=== PATIENT | female | born 1970 | race Two or more races ===

== ENCOUNTER 2019-12-20 13:19 | Outpatient (REF) | payer MEDICAID, SELFPAY | END 2019-12-20 13:20 | disposition home or self-care (01) | LOC: HO.LAB 13:19 | PROVIDERS: Visit Provider Internal Medicine | DX: Z20.828 Contact with and (suspected) exposure to other viral communicable diseases (principal) | CPT/HCPCS: C9803; U0003 ==

== ENCOUNTER → 2020-01-05 10:05 | Outpatient (BNVA) | payer MEDICAID, SELFPAY | PROVIDERS: PCP Pediatrics; Visit Provider Physician Assistant | DX: M25.511 Pain in right shoulder (principal); M54.2 Cervicalgia | CPT/HCPCS: 99212 ==

== ENCOUNTER → 2020-02-28 09:43 | Outpatient (BNVA) | payer MEDICAID, SELFPAY | PROVIDERS: PCP Pediatrics; Visit Provider Nurse Practitioner Family | DX: M75.81 Other shoulder lesions, right shoulder (principal); M47.22 Other spondylosis with radiculopathy, cervical region; M79.89 Other specified soft tissue disorders | CPT/HCPCS: 99202 ==

== ENCOUNTER 2020-03-07 19:42 | Outpatient (REF) | payer MEDICAID, SELFPAY ==
--- NOTE | 2020-03-07 19:47 | MR_ITS ---
MR CERVICAL SPINE WITHOUT CONTRAST CLINICAL INFORMATION: Spondylosis with radiculopathy. COMPARISON: Cervical spine CT dated 07/07/2018. TECHNIQUE: MRI of the cervical spine was obtained using routine sequences without contrast. FINDINGS: Straightening of the cervical lordosis. Vertebral body heights are maintained. There is moderate disc volume loss C5-C6, C6-C7, and C7-T1. There is no bone marrow edema. There are no acute fractures. The craniocervical junction is unremarkable. Cervical arterial flow voids are maintained. There are no significant soft tissue findings. There is no cord signal abnormality. Partially imaged intracranial compartment is unremarkable. C2-C3: Shallow central disc protrusion without central canal stenosis. Bilateral facet arthropathy. No foraminal stenosis. C3-C4: Disc osteophyte and ligamentum flavum thickening result in moderate to severe central canal stenosis and mass effect on the cord. Uncovertebral joint hypertrophy and hypertrophic facet arthropathy result in severe left and moderate to severe right foraminal stenosis. C4-C5: Disc osteophyte and ligamentum flavum thickening result in moderate central canal stenosis and flattening of the cord. Uncovertebral joint hypertrophy and hypertrophic facet arthropathy result in severe left and moderate right foraminal stenosis. C5-C6: Disc osteophyte and ligamentum flavum thickening result in severe central canal stenosis and mass effect on the cord. Uncovertebral joint hypertrophy and hypertrophic facet arthropathy result in severe bilateral foraminal stenosis. C6-C7: Disc osteophyte eccentric to the left side mildly narrows the central canal. Uncovertebral joint hypertrophy and hypertrophic facet arthropathy result in moderate to severe bilateral foraminal stenosis. C7-T1: Disc osteophyte mildly narrows the central canal. Uncovertebral joint hypertrophy and hypertrophic facet arthropathy result in severe bilateral foraminal stenosis. MR/MR cervical spine wo con IMPRESSION: - Advanced multilevel cervical spondylosis. Multifactorial degenerative changes result in severe central canal stenosis at C5-C6, moderate to severe central canal stenosis at C3-C4, and moderate central canal stenosis at C4-C5 with mass effect on the cervical spinal cord at these levels, greatest at C5-C6. No cord signal changes accounting for artifact. - Advanced spondylitic changes also result in varying degrees of moderate to severe foraminal stenosis throughout the cervical spine bilaterally as discussed in detail above.
== END 2020-03-07 19:43 | disposition home or self-care (01) ==
LOC: HO.MRI 19:42
PROVIDERS: Visit Provider Anesthesiology
DX: M47.22 Other spondylosis with radiculopathy, cervical region (principal)
CPT/HCPCS: 72141

== ENCOUNTER 2020-03-12 13:12 | Outpatient (REF) | payer MEDICAID, SELFPAY ==
--- NOTE | 2020-03-12 13:14 | US_ITS ---
EXAMINATION: ULTRASOUND EXTREMITY NONVASCULAR CLINICAL INFORMATION: 1 inch nonmobile mass located in the right antecubital fossa. Rule out neurofibroma. Patient indicates second palpable area over the right lateral elbow toward the olecranon. COMPARISON: None TECHNIQUE: Grayscale and color imaging of the soft tissues of the elbow using a linear transducer FINDINGS: No mass is seen. No fluid collection is seen. US/US extremity nonvascular IMPRESSION: No abnormality seen by ultrasound.
== END 2020-03-12 13:13 | disposition home or self-care (01) ==
LOC: HO.US 13:12
PROVIDERS: PCP Internal Medicine; Visit Provider Anesthesiology
DX: M79.89 Other specified soft tissue disorders (principal); L02.413 Cutaneous abscess of right upper limb
CPT/HCPCS: 76882

== ENCOUNTER → 2020-03-13 14:35 | Outpatient (BNVA) | payer MEDICAID, SELFPAY | PROVIDERS: PCP Internal Medicine; Referring Provider Internal Medicine; Visit Provider Nurse Practitioner | DX: Z76.89 Persons encountering health services in other specified circumstances (principal) ==

== ENCOUNTER → 2020-03-20 09:01 | Outpatient (BNVA) | payer MEDICAID, SELFPAY | PROVIDERS: PCP Internal Medicine; Visit Provider Anesthesiology ==

== ENCOUNTER → 2020-05-14 15:28 | Outpatient (BNVA) | payer MEDICAID, SELFPAY | PROVIDERS: PCP Internal Medicine; Referring Provider Internal Medicine; Visit Provider Nurse Practitioner ==

== ENCOUNTER 2020-06-17 14:02 | Outpatient (REF) | payer MEDICAID, SELFPAY ==
--- NOTE | ~2020-06-17 | US_ITS ---
EXAMINATION: US RETROPERITONEAL LIMITED (RENAL ONLY) CLINICAL INFORMATION: Cyst of kidney, acquired. COMPARISON: Renals only ultrasounds dated 05/25/2019 and 12/06/2018. CT abdomen and pelvis without contrast dated 02/21/2017. KUBs dated 05/22/2015 and 05/15/2015. TECHNIQUE: Real-time imaging of the kidneys. FINDINGS: RIGHT KIDNEY: 12.7 x 4.3 x 5.2 cm (SAG x AP x TRV). The kidney is normal in size, contour, and echogenicity. Renal cortical thickness is normal. There is a 3 mm stone in the midpole. No focal parenchymal lesions or hydronephrosis. LEFT KIDNEY: 11.2 x 4.5 x 4.7 cm (SAG x AP x TRV). The kidney is normal in size, contour, and echogenicity. Renal cortical thickness is normal. There is a 4 mm stone in the upper to midpole. No focal parenchymal lesions or hydronephrosis. US/US renal BI IMPRESSION: Small bilateral renal stones. No renal cyst seen..
== END 2020-06-17 14:03 | disposition home or self-care (01) ==
LOC: HO.US 14:02
PROVIDERS: PCP Internal Medicine; Visit Provider Urology
DX: N28.1 Cyst of kidney, acquired (principal)
CPT/HCPCS: 76775

== ENCOUNTER 2020-09-26 08:26 | Outpatient (REF) | payer MEDICAID, SELFPAY ==
--- NOTE | ~2020-09-26 | XR_ITS ---
EXAMINATION: XR KNEE STANDING, BILATERAL XR KNEE, RIGHT CLINICAL INFORMATION: Pain. COMPARISON: Most recent right knee MRI dated 12/27/2017. Bilateral knee radiographs dated 11/15/2017. TECHNIQUE: AP standing view of the right and left knee. Lateral and sunrise views of the right knee. FINDINGS: Oarmqwkj-pc-pblxli medial compartment joint space narrowing with subchondral sclerosis and marginal osteophytes. Tiny patellofemoral marginal osteophytes. No fracture or dislocation. Medial compartment chondrocalcinosis. Hgojh-yu-hywutfmt joint effusion. XR/XR knee RT 2V IMPRESSION: Pcdsahnj-ki-nalcwi medial compartment osteoarthritis and minimal patellofemoral compartment osteophyte arthritis, progressed when compared to the prior examinations.
--- NOTE | ~2020-09-26 | XR_ITS ---
EXAMINATION: XR KNEE STANDING, BILATERAL XR KNEE, RIGHT CLINICAL INFORMATION: Pain. COMPARISON: Most recent right knee MRI dated 12/27/2017. Bilateral knee radiographs dated 11/15/2017. TECHNIQUE: AP standing view of the right and left knee. Lateral and sunrise views of the right knee. FINDINGS: Kdvilurm-ua-toncaa medial compartment joint space narrowing with subchondral sclerosis and marginal osteophytes. Tiny patellofemoral marginal osteophytes. No fracture or dislocation. Medial compartment chondrocalcinosis. Nzwnt-dx-xufqghgd joint effusion. XR/XR knee standing BI IMPRESSION: Dvphjxyy-yh-hdomqh medial compartment osteoarthritis and minimal patellofemoral compartment osteophyte arthritis, progressed when compared to the prior examinations.
== END 2020-09-26 08:27 | disposition home or self-care (01) ==
LOC: HO.HOSX 08:26
PROVIDERS: Visit Provider Physician Assistant
DX: M17.11 Unilateral primary osteoarthritis, right knee (principal)
CPT/HCPCS: 20610; 73560; 73565; 99212; J1040

== ENCOUNTER 2020-11-20 11:40 | Outpatient (REF) | payer MEDICAID, SELFPAY | END 2020-11-20 11:41 | disposition home or self-care (01) | LOC: HO.LAB 11:40 | PROVIDERS: PCP Internal Medicine; Visit Provider Internal Medicine | DX: Z20.822 Contact with and (suspected) exposure to COVID-19 (principal) | CPT/HCPCS: C9803; U0003; U0005 ==

== ENCOUNTER → 2020-12-25 11:31 | Outpatient (BNVA) | payer MEDICAID, SELFPAY | PROVIDERS: PCP Internal Medicine | DX: N20.0 Calculus of kidney (principal) | CPT/HCPCS: 99212 ==

== ENCOUNTER → 2020-12-26 16:07 | Outpatient (BNVA) | payer MEDICAID, SELFPAY | PROVIDERS: PCP Internal Medicine; Visit Provider Nurse Practitioner | DX: K21.9 Gastro-esophageal reflux disease without esophagitis (principal) ==

== ENCOUNTER → 2021-03-17 14:40 | Outpatient (BNVA) | payer MEDICAID, SELFPAY | PROVIDERS: PCP Internal Medicine | DX: N20.0 Calculus of kidney (principal) | CPT/HCPCS: 51798; 99212 ==

== ENCOUNTER 2021-04-07 13:49 | Outpatient (REF) | payer MEDICAID, SELFPAY ==
--- NOTE | ~2021-04-07 | US_ITS ---
EXAMINATION: US RETROPERITONEAL LIMITED (RENAL ONLY) CLINICAL INFORMATION: Calculus of kidney. COMPARISON: Bilateral renal ultrasound dated 06/17/2020. Renals only ultrasound dated 05/25/2019. CT abdomen and pelvis without contrast dated 02/21/2017. KUBs dated 05/22/2015 and 05/15/2015. TECHNIQUE: Real-time imaging of the kidneys. FINDINGS: RIGHT KIDNEY: 12.2 x 4.4 x 5.2 cm (SAG x AP x TRV). The kidney is normal in size, contour, and echogenicity. Renal cortical thickness is normal. No calculi or focal parenchymal lesions. No hydronephrosis. LEFT KIDNEY: 12.1 x 5.1 x 5.5 cm (SAG x AP x TRV). The kidney is normal in size, contour, and echogenicity. Renal cortical thickness is normal. No focal parenchymal lesions or hydronephrosis. There is an echogenic stone in upper pole measuring 0.4 x 0.3 x 0.4 cm. US/US renal BI IMPRESSION: Echogenic upper pole left renal stone measuring 0.4 cm. No additional echogenic stones seen. There is no hydronephrosis. The right kidney is unremarkable.
--- NOTE | ~2021-04-07 | XR_ITS ---
EXAMINATION: XR RIBS, RIGHT CLINICAL INFORMATION: Chondrocostal junction syndrome. COMPARISON: None TECHNIQUE: 3 views of the right ribs were obtained. Chest one view FINDINGS: Chest: Lungs are clear. No consolidation, pneumothorax, or pleural effusion. The cardiomediastinal silhouette and pulmonary vasculature are normal. Osseous structures are unremarkable. Right RIBS: Multiple views of right ribs reveal no visible fracture or bony abnormality. The soft tissues are normal. XR/XR ribs RT min 3V w CXR1V IMPRESSION: Unremarkable chest exam. Unremarkable right rib exam. No acute fracture seen.
== END 2021-04-07 13:50 | disposition home or self-care (01) ==
LOC: HO.US 13:49
PROVIDERS: PCP Internal Medicine; Visit Provider Urology
DX: N20.0 Calculus of kidney (principal); M94.0 Chondrocostal junction syndrome [Tietze]
CPT/HCPCS: 71101; 76775

== ENCOUNTER 2021-04-18 11:34 | Emergency (ER) | payer MEDICAID, SELFPAY ==
--- NOTE | ~2021-04-18 | CT_ITS ---
EXAMINATION: CT ABDOMEN AND PELVIS WITHOUT CONTRAST CLINICAL INFORMATION: Left flank and left lower quadrant abdominal pain. Hematuria. COMPARISON: CT of February 21, 2017 and ultrasound study of April 07, 2021. TECHNIQUE: Multidetector volumetric imaging was performed from the superior aspect of the liver through the pubic symphysis. Sagittal and coronal reformatted images were obtained on the technologist's workstation. This CT examination was performed using dose optimization techniques as appropriate, variously including the following: *Automated exposure control *Adjustment of mA and/or kV according to patient size (this includes techniques or standardized protocols for targeted exams where dose is matched to indication/reason for exam; i.e. extremities or head) *Use of iterative reconstruction technique DLP: 578 mGy-cm FINDINGS: LUNG BASES: The visualized lung bases are unremarkable. No pleural or pericardial effusion. LIVER, GALLBLADDER, AND BILIARY TREE: There is mild hepatomegaly present with vertical span of approximately 20 cm. There is a region of focal fatty infiltration along the falciform ligament within segment 3. No suspicious focal mass or intrahepatic bile duct dilatation is identified. The gallbladder is contracted with no obvious radiopaque gallstones, gallbladder wall thickening, or pericholecystic inflammatory changes. PANCREAS: Unremarkable. SPLEEN: Unremarkable. ADRENAL GLANDS: Unremarkable. KIDNEYS AND URETERS: Right kidney: Within the interpolar region there is a 3 mm nonobstructing calculus and a 1 mm nonobstructing calculus. No hydronephrosis or hydroureter is appreciated. Left kidney: Within the upper pole of the left kidney there are 2, 2 mm nonobstructing calculi. No hydronephrosis is appreciated. There is however noted to be prominence of the left ureter down to the ureterovesical junction. No definite calculus is seen in this location however there is a 3 mm calculus lying about the posterior aspect of the urinary bladder on the left side which may represent a recently passed calculus. BLADDER: There is a 3 mm calcification about the posterior left lateral aspect of the urinary bladder which may either lie within or adjacent to the wall or within the urinary bladder itself. GASTROINTESTINAL TRACT: No dilated loops of large or small bowel are evident. There is diverticulosis of the sigmoid colon without evidence of acute diverticulitis. ABDOMINAL WALL: No significant hernia is appreciated. LYMPH NODES: None appreciated VASCULAR: Unremarkable. PELVIC VISCERA: Unremarkable. OSSEOUS STRUCTURES: Multilevel degenerative disc disease is seen throughout the lumbar spine and involving the mid to lower thoracic spine. Disc spacer is seen at the L5-S1 level. CT/CT abdomen pelvis wo con IMPRESSION: Prominence of the left ureter down to the ureterovesical junction without calcification seen within the ureter. There is a 3 mm calcification about the left side of the urinary bladder likely representing a recently passed calculus. Bilateral nephrolithiasis. Mild hepatomegaly. Fleischner guidelines were followed.
[2021-04-18 11:40] VITALS: BP 151/70; PULSE 70; RESP 18; TEMP 36.6; O2SAT 97; BMI 27.8
[2021-04-18 12:10] LABS: MANUAL DIFF FLAG NO
[2021-04-18 12:15] LABS: Basophils Percent Auto 0.4 % (0-2); Eosinophils Absolute Auto 0.1 X10*3/uL (0.0-0.4); Hematocrit 41.1 % (37.0-47.0); Hemoglobin 13.6 g/dl (12.0-16.0); Imm Gran Abs Auto 0.03 X10*3/uL (0.00-0.03); Imm Gran Pct Auto 0.3 % (0.0-0.4); Lymphocytes Percent Auto 37.9 % (20-40); Mean Corpuscular HGB Conc 33.1 g/dl (31.0-35.0); Mean Corpuscular Hemoglobin 29.2 pg (27.0-33.0); Mean Corpuscular Volume 88.4 fL (80.0-98.0); Mean Platelet Volume 12.1 fL (9.4-12.3); Monocytes Absolute Auto 0.9 X10*3/uL (0.1-1.2); Neutrophils Absolute Auto 5.6 x10*3/uL (2.0-8.3); Neutrophils Percent Auto 52.4 % (45-73); Platelet Count 298 X10*3/uL (160-400); Red Blood Count 4.65 X10*6/uL (4.20-5.50); Red Cell Distribution Width 13.8 % (11.0-16.0); White Blood Count 10.7 X10*3/uL (4.8-10.8)
[2021-04-18 12:16] LABS: Appearance Urine CLOUDY; Color Urine YELLOW; Glucose Urine UA NEG (NEG); Leukocyte Esterase Urine NEG (NEG); Nitrite Urine NEG (NEG); Specific Gravity - Urine >= 1.030 (1.005-1.025); UACC Culture Trigger NO; Urine Blood 3+ (NEG); Urine Ketones NEG (NEG); Urine Protein 1+ MG/DL (NEG-TRACE)
[2021-04-18 12:24] LABS: Anion Gap 12 (12-20); Blood Urea Nitrogen 22 mg/dL (9-16); Calcium 10.4 mg/dL (8.4-10.2); Carbon Dioxide 28 mmol/L (22-29); Chloride 105 mmol/L (96-108); Creatinine Clr Calc Pharmacy 76.9; Estimated Glomerular Filt Rate > 60; Glucose Random 97 mg/dL (60-115); Potassium 3.6 mmol/L (3.3-5.1); Sodium 141 mmol/L (135-145)
[2021-04-18 12:31] LABS: RBC Urine TNTC /HPF (0); Squamous Epithelial Cell Urine TRACE /LPF; WBC Urine 0 /HPF (0-4)
[2021-04-18 13:44] VITALS: BP 117/67; PULSE 55; RESP 17; TEMP 36.4; O2SAT 95
[2021-04-18] MEDS: 0.9 % Sodium Chloride 1,000 ML 999 ML IV ×2 (13:50→15:42)
--- NOTE | 2021-04-18 14:04 | ED_ITS ---
HPI - Female Genitourinary General Chief complaint: Urogenital-Female Stated complaint: Kidney stone Time Seen by Provider: 04/18/21 13:41 Source: patient Mode of arrival: ambulatory History of Present Illness HPI Narrative: 51-year-old female with a past medical history fibromyalgia, renal calculi, presenting to the ED complaining of left flank pain radiating to LLQ since last night with associated hematuria, dysuria, and urinary hesitancy Admits to similar symptoms in the past. Recently had outpatient ultrasound which patient is unaware of results. Denies fever, chills, nausea, vomiting, diarrhea/constipation MD elicited complaint: dysuria Related Data Home Medications Medication Instructions Recorded Confirmed cholecalciferol (vitamin D3) 25 25 mcg PO DAILY 02/28/20 02/28/20 mcg (1,000 unit) capsule fexofenadine 180 mg tablet 180 mg PO DAILY 02/28/20 02/28/20 (Melody Allergy) morphine 15 mg tablet,extended 15 mg PO ONCE tab 02/28/20 02/28/20 release oxycodone-acetaminophen 5 mg-325 1 tab PO Q8H PRN 02/28/20 02/28/20 mg tablet pregabalin 300 mg capsule (Lyrica) 300 mg PO BID 02/28/20 02/28/20 cyclobenzaprine 10 mg tablet 10 mg PO BEDTIME 12/25/20 varenicline 0.5 mg tablet 0.5 mg PO BID 12/25/20 Previous Rx's Medication Instructions Recorded diazepam 5 mg tablet (Valium) 5 mg PO ONCE PRN 1 Days #1 tab 03/04/20 docusate sodium 100 mg capsule 100 mg PO DAILY #30 cap 12/26/20 omeprazole 20 mg capsule,delayed 20 mg PO DAILY 30 Days #30 cap 12/26/20 release sennosides 8.6 mg capsule (senna) 17.2 mg PO BEDTIME PRN 30 Days #60 12/26/20 cap pyridoxine (vitamin B6) 100 mg 100 mg PO DAILY 90 Days #90 tab 04/01/21 tablet fesoterodine 8 mg tablet,extended 8 mg PO DAILY #90 tab 04/16/21 release 24 hr (Toviaz) ketorolac 10 mg tablet 10 mg PO TID PRN 5 Days #15 tab 04/18/21 tamsulosin 0.4 mg capsule (Flomax) 0.4 mg PO DAILY #14 cap 04/18/21 Allergies Allergy/AdvReac Type Severity Reaction Status Date / Time duloxetine [From CYMBALTA] Allergy Severe SEVERE Verified 04/18/21 11:39 DIARRHEA/DEHYDRATION tramadol [TRAMADOL] Allergy Severe SEVERE Verified 04/18/21 11:39 DIARRHEA/DEHYDRATION pollen Allergy Unknown unknown Uncoded 12/26/20 16:09 Review of Systems Review of Systems: Constitutional: No Fever, No Chills, No Fatigue, No Malaise ENT/Mouth: No Ear Pain, No Nasal Congestion, No sore throat, No Rhinorrhea, No Swallowing Difficulty Eyes: No Eye Pain, No Swelling, No Redness Cardiovascular: No Chest Pain, No SOB, No Palpitations Respiratory: No Cough, No Sputum, No Dyspnea Gastrointestinal: No Nausea, No Vomiting, No Diarrhea, No Constipation, + Abdominal pain Genitourinary: No irregular bleeding, + Dysuria, + Urinary Frequency, + Hematuria, No Urinary Incontinence, No Urgency, + Flank Pain, No Urinary Flow Changes, + Hesitancy Musculoskeletal: No joint pain, No Myalgias, No Joint Swelling Skin: No Skin Lesions, No rash Neuro: No Weakness, No Numbness, No Dizziness, No Headache Yes all other systems are reviewed and are negative [facility] Past Medical History Attestation statement: The following information was validated with the patient. Medical History Epigastric pain Fibromyalgia H. pylori infection Renal calculi Spinal stenosis, cervical region Urinary incontinence Surgical History History of esophagogastroduodenoscopy (EGD) History of right knee surgery History of spinal fusion Hx of colonoscopy Family History Family History Mother Diabetes Family history of cancer Sister HTN (hypertension) Diabetes Maternal Grandmother Heart problem Father Medical history unknown Social History Social History Household Members: None Cigarettes Per Day: 4 Substance Use Type: Marijuana Advance Directives: No Advance Directives Information Provided: No Current occupational status: unemployed Current occupation: rt handed Physical Exam Vital Signs: Vital Signs: Last Vital Signs Temp 97.9 F 04/18/21 16:36 Pulse 50 04/18/21 16:36 Resp 18 04/18/21 16:36 BP 122/68 04/18/21 16:36 Pulse Ox 100 04/18/21 16:36 BMI result Body Mass Index 27.8 Const: Other: in pain General: cooperative and healthy appearing Orientation/consciousness: patient oriented x3 Limitations: no limitations HENMT: Head: Yes normal to inspection and Yes atraumatic Ears: hearing grossly normal bilaterally General nose exam: Normal external nose present Face and sinus: Yes normal facial exam Eyes: General: appearance normal, both eyes and all related structures EOM: EOMs intact bilaterally Neck: Neck: Yes normal visual inspection Resp: Effort & Inspection: normal respiratory effort and no respiratory distress Cardio: Rate: regular rate Heart sounds: S1 normal heart sound present and S2 normal heart sound present GI: Inspection: Yes normal to inspection Palpation (GI): Soft to palpation, Tenderness to palpation present (GI) in the LLQ and suprapubicly, no guarding and not rigid : General: Yes CVA tenderness on the left Back/Spine/Pelvis: Back: CVA tenderness Skin: Rashes: no rashes Wounds: no wounds Neuro: General: patient oriented x3 and tone normal Gait exam (Neuro): Normal gait present Extrem: General: Yes normal to inspection Course Course Course Narrative: -1420--BUN elevated to 22. Labs otherwise unremarkable. UA with RBC/not infected. -CT abdomen pelvis wo con IMPRESSION: Prominence of the left ureter down to the ureterovesical junction without calcification seen within the ureter. There is a 3 mm calcification about the left side of the urinary bladder likely representing a recently passed calculus. ? Bilateral nephrolithiasis. ? Mild hepatomegaly. ? >> results discussed with patient including worrisome signs and symptoms and strict return precautions & needed close follow-up with Urology. Patient rep orts symptomatic improvement since ED arrival MDM - Female Genitourinary MDM Narrative Medical decision making narrative: 51-year-old female with a past medical history fibromyalgia, renal calculi, pr esenting to the ED complaining of left flank pain radiating to LLQ since last night with associated hematuria, dysuria, and urinary hesitancy. On exam vital signs stable, appears in pain, abdomen soft with LLQ/suprapubic tenderness and CVA tenderness. No rebound or guarding. Concern for renal stone/colic vs UTI/pyelo. Unlikely appendicitis/diverticulitis. Plan: Labs, UA, CT, IVF, symptomatic treatment, re-evaluate Of note on 03/07/2021 patient had a bilateral renal ultrasound which showed upper pole left renal stone measuring 0.4 cm. No hydro. Right kidney was unremarkable. Differential Diagnosis Differential diagnosis: Likely urinary tract infection Medical Records Attestation: I reviewed the patient's medical records. Lab Data Attestation: I reviewed the patient's lab results. Result diagrams: 04/18/21 12:04/18/21 12:01 Labs: Lab Results 04/18/21 04/18/21 04/18/21 Range/Units 12: 12: 12:05 WBC 10.7 (4.8-10.8) X10*3/uL RBC 4.65 (4.20-5.50) X10*6/uL Hgb 13.6 (12.0-16.0) g/dl Hct 41.1 (37.0-47.0) % MCV 88.4 (80.0-98.0) fL MCH 29.2 (27.0-33.0) pg MCHC 33.1 (31.0-35.0) g/dl RDW 13.8 (11.0-16.0) % Plt Count 298 (160-400) X10*3/uL MPV 12.1 (9.4-12.3) fL Immature Gran % (Auto) 0.3 (0.0-0.4) % Neut % (Auto) 52.4 (45-73) % Lymph % (Auto) 37.9 (20-40) % [place] % (Auto) 8.0 (2-11) % Eos % (Auto) 1.0 (0-4) % Baso % (Auto) 0.4 (0-2) % Lymph # (Auto) 4.0 (1.2-4.9) X10*3/uL Knott # (Auto) 0.9 (0.1-1.2) X10*3/uL Eos # (Auto) 0.1 (0.0-0.4) X10*3/uL Baso # (Auto) 0.0 (0.0-0.2) X10*3/uL Abs Immat Gran (auto) 0.03 (0.00-0.03) X10*3/uL Absolute Neuts (auto) 5.6 (2.0-8.3) x10*3/uL Absolute Nucleated RBC 0.000 (0.0-0.012) X10*3/uL Nucleated RBC % (auto) 0.0 (0.0-0.2) /100WBC Sodium 141 (135-145) mmol/L Potassium 3.6 (3.3-5.1) mmol/L Chloride 105 (96-108) mmol/L Carbon Dioxide 28 (22-29) mmol/L Anion Gap 12 (12-20) BUN 22 H (9-16) mg/dL Creatinine 0.80 (0.5-1.4) mg/dL Estim Creat Clear Calc 76.9 Estimated GFR > 60 Random Glucose 97 (60-115) mg/dL Calcium 10.4 H (8.4-10.2) mg/dL Total Bilirubin 0.5 (0.0-1.0) mg/dL Direct Bilirubin 0.2 (0.0-0.5) mg/dL AST 16 (5-31) U/L ALT 15 (0-31) U/L Alkaline Phosphatase 79 (39-117) U/L Total Protein 7.8 (6.5-8.0) g/dL Albumin 4.5 (3.5-5.0) g/dL Urine Color YELLOW Urine Appearance CLOUDY Urine pH 6.0 (5.0-8.0) Ur Specific [place] >= 1.030 H (1.005-1.025) Urine Protein 1+ H (NEG-TRACE) MG/DL Urine Glucose (UA) NEG (NEG) MG/DL Urine Ketones NEG (NEG) MG/DL Urine Blood 3+ H (NEG) Urine Nitrite NEG (NEG) Ur Leukocyte Esterase NEG (NEG) Urine RBC TNTC H (0) /HPF Urine WBC 0 (0-4) /HPF Ur Squamous Epith Cells TRACE /LPF Urine Bacteria NONE /LPF Discharge Plan Discharge Clinical Impression: Bilateral renal stones Patient Disposition: Home, Self-Care Instructions: Renal Colic (ED) Additional Instructions: Your blood work is reassuring, you do need to increase her fluid intake. Her urine has blood in at likely from her kidney stone. Your CT scan shows evidence that he likely passed a stone on her left side. You do have bilateral stones in both of her kidneys. You need to follow-up with Urology. If symptoms persist or worsen, pain becomes unbearable, you are unable to eat or drink, persistent nausea vomiting or fever please return to the ED Toradol it is an anti-inflammatory pain medication, take with food. Flomax will help dilate her ureter. Prescriptions: New ketorolac 10 mg tablet 10 mg PO TID PRN (Reason: pain) 5 Days Qty: 15 0RF tamsulosin [Flomax] 0.4 mg capsule 0.4 mg PO DAILY Qty: 14 0RF No Action diazepam [Valium] 5 mg tablet 5 mg PO ONCE PRN (Reason: anxiety) 1 Days Qty: 1 0RF Rx Instructions: take 1 hour before the MRI procedure. pyridoxine (vitamin B6) 100 mg tablet 100 mg PO DAILY 90 Days Qty: 90 3RF Toviaz 8 mg tablet extended release 24 hr 8 mg PO DAILY Qty: 90 3RF pregabalin [Lyrica] 300 mg capsule 300 mg PO BID 0RF cholecalciferol (vitamin D3) 25 mcg (1,000 unit) capsule 25 mcg PO DAILY 0RF fexofenadine [Melody Allergy] 180 mg tablet 180 mg PO DAILY 0RF morphine 15 mg tablet extended release 15 mg PO ONCE 0RF oxycodone-acetaminophen 5-325 mg tablet 1 tab PO Q8H PRN0RF omeprazole 20 mg capsule,delayed release(DR/EC) 20 mg PO DAILY 30 Days Qty: 30 6RF docusate sodium 100 mg capsule 100 mg PO DAILY Qty: 30 6RF senna 8.6 mg capsule 17.2 mg PO BEDTIME PRN (Reason: constipation) 30 Days Qty: 60 3RF cyclobenzaprine 10 mg tablet 10 mg PO BEDTIME 0RF varenicline 0.5 mg tablet 0.5 mg PO BID 0RF Rx Instructions: administer on days 4, 5, and 6 of therapy Referrals: Raul Frank MD [Physician] - 1 week
[2021-04-18 14:08] LABS: Alanine Aminotransferase 15 U/L (0-31); Albumin Level 4.5 g/dL (3.5-5.0); Alkaline Phosphatase 79 U/L (39-117); Aspartate Amino Transferase 16 U/L (5-31); Bilirubin Direct 0.2 mg/dL (0.0-0.5); Bilirubin Total 0.5 mg/dL (0.0-1.0); Total Protein 7.8 g/dL (6.5-8.0)
[2021-04-18] MEDS: Ketorolac Tromethamine 15 MG/ML VIAL IVPUSH (14:30)
[2021-04-18] MEDS: Tamsulosin HCL 0.4 MG CAPSULE PO (14:30)
--- NOTE | 2021-04-18 14:38 | PC.NURSE ---
this health underwriter assumed care of this pt at 1420. pt medicated and fluid started as documented. vss.
[2021-04-18 16:36] VITALS: BP 122/68; PULSE 50; RESP 18; TEMP 36.6; O2SAT 100
== END 2021-04-18 17:17 | disposition home or self-care (01) ==
PROVIDERS: Physician Assistant; Emergency Provider Emergency Medicine; PCP Internal Medicine
DX: N20.0 Calculus of kidney (principal); R10.32 Left lower quadrant pain; F17.210 Nicotine dependence, cigarettes, uncomplicated; Z71.6 Tobacco abuse counseling; Z79.899 Other long term (current) drug therapy
CPT/HCPCS: 36415; 74176; 80048; 80076; 81001; 85025; 96361; 96374; 99284; 99285; J1885

== ENCOUNTER → 2021-04-28 13:48 | Outpatient (BNVA) | payer MEDICAID, SELFPAY | PROVIDERS: PCP Internal Medicine | DX: N20.0 Calculus of kidney (principal) | CPT/HCPCS: 99212 ==

== ENCOUNTER → 2021-07-21 16:10 | Outpatient (BNVA) | payer MEDICAID, SELFPAY | PROVIDERS: PCP Internal Medicine; Referring Provider Internal Medicine; Visit Provider Nurse Practitioner | DX: K21.9 Gastro-esophageal reflux disease without esophagitis (principal); K59.00 Constipation, unspecified; Z79.899 Other long term (current) drug therapy | CPT/HCPCS: 99212 ==

== ENCOUNTER 2021-09-16 13:20 | Outpatient (REF) | payer MEDICAID, SELFPAY ==
--- NOTE | ~2021-09-16 | US_ITS ---
EXAMINATION: US RETROPERITONEAL LIMITED (RENAL ONLY) CLINICAL INFORMATION: Calculus of kidney. COMPARISON: CT abdomen and pelvis without contrast 04/18/2021. US retroperitoneal limited (renal only) 04/07/2021 and 06/17/2020. XR abdomen KUB 05/22/2015 and 05/15/2015. TECHNIQUE: Real-time imaging of the kidneys. FINDINGS: RIGHT KIDNEY: 12.1 x 4.2 x 4.7 cm (SAG x AP x TRV). The kidney is normal in size, contour, and echogenicity. Renal cortical thickness is normal. No calculi or focal parenchymal lesions. No hydronephrosis. LEFT KIDNEY: 11.6 x 4.8 x 4.6 cm (SAG x AP x TRV). The kidney is normal in size, contour, and echogenicity. Renal cortical thickness is normal. No calculi or focal parenchymal lesions. No hydronephrosis. US/US renal BI IMPRESSION: Normal renal ultrasound study. The previously noted bilateral renal calculi from CT scan are not appreciated on the ultrasound study. The mild left upper collecting system prominence has resolved..
== END 2021-09-16 13:21 | disposition home or self-care (01) ==
LOC: HO.US 13:20
PROVIDERS: Visit Provider Urology
DX: N20.0 Calculus of kidney (principal)
CPT/HCPCS: 76775

== ENCOUNTER 2021-10-16 09:57 | Outpatient (REF) | payer MEDICAID, SELFPAY ==
--- NOTE | ~2021-10-16 | XR_ITS ---
EXAMINATION: XR BILATERAL KNEE AP STANDING. LATERAL AND SUNRISE VIEWS OF THE RIGHT KNEE. CLINICAL INFORMATION: Pain in right knee COMPARISON: 09/26/2020 TECHNIQUE: AP bilateral standing view of both knees, lateral view of the right knee, and sunrise view of the right knee were obtained. FINDINGS: Right knee: Mild medial compartment joint space narrowing. No fracture, dislocation, or joint effusion. There is superior and lateral patellar osteophytosis. Left knee: There may be minimal medial compartment joint space narrowing. No fracture or dislocation seen. XR/XR knee RT 2V IMPRESSION: Medial and patellofemoral compartment osteoarthritis of the right knee. The findings in the patellofemoral compartment have progressed since 09/26/2020.
--- NOTE | ~2021-10-16 | XR_ITS ---
EXAMINATION: XR BILATERAL KNEE AP STANDING. LATERAL AND SUNRISE VIEWS OF THE RIGHT KNEE. CLINICAL INFORMATION: Pain in right knee COMPARISON: 09/26/2020 TECHNIQUE: AP bilateral standing view of both knees, lateral view of the right knee, and sunrise view of the right knee were obtained. FINDINGS: Right knee: Mild medial compartment joint space narrowing. No fracture, dislocation, or joint effusion. There is superior and lateral patellar osteophytosis. Left knee: There may be minimal medial compartment joint space narrowing. No fracture or dislocation seen. XR/XR knee standing BI IMPRESSION: Medial and patellofemoral compartment osteoarthritis of the right knee. The findings in the patellofemoral compartment have progressed since 09/26/2020.
== END 2021-10-16 09:58 | disposition home or self-care (01) ==
LOC: HO.HOSX 09:57
PROVIDERS: Visit Provider Physician Assistant
DX: M72.2 Plantar fascial fibromatosis (principal)
CPT/HCPCS: 73560; 73565; 99212

== ENCOUNTER 2022-05-08 14:23 | Emergency (ER) | payer MEDICAID, SELFPAY ==
--- NOTE | ~2022-05-08 | XR_ITS ---
EXAMINATION: XR SHOULDER, RIGHT CLINICAL INFORMATION: Right shoulder pain status post surgery. COMPARISON: 08/03/2019 right shoulder radiographs. TECHNIQUE: AP external rotation, Grashey, scapular Y, and axillary views of the right shoulder. FINDINGS: Mild calcification is seen in the region of the rotator cuff insertion on the greater tuberosity. Mild degenerative joint changes are seen. The visualized right ribs are intact. The soft tissues are unremarkable. XR/XR shoulder RT min 2V IMPRESSION: 1. Mild rotator cuff calcific tendinosis. 2. Mild degenerative joint changes. No acute abnormality.
--- NOTE | 2022-05-08 14:37 | ED.UPPEXIN ---
HPI - Extremity Injury (Upper) General Chief Complaint: Extremity Injury, Upper <RACHEL Fleming - Last Filed: 05/08/22 14:45> Stated Complaint: right arm pain <RACHEL Fleming - Last Filed: 05/08/22 14:45> Time Seen by Provider: 05/08/22 16:09 <RACHEL Fleming - Last Filed: 05/08/22 14:45> Source: patient <Estefania Chavarria MD - Last Filed: 05/08/22 17:18> Mode of arrival: ambulatory <Estefania Chavarria MD - Last Filed: 05/08/22 17:18> Limitations: no limitations <Estefania Chavarria MD - Last Filed: 05/08/22 17:18> History of Present Illness HPI narrative: Patient comes emergency room complaining of right shoulder pain. Patient had an ORIF on 03/24/2022 at [facility]. Patient states that she is currently on physical therapy and states that the pain keeps increasing. Patient states that she takes Percocet without relief. Patient denies any fever chills, no erythema in the area or swelling. Patient denies any new injuries <Estefania Chavarria MD - Last Filed: 05/08/22 17:18> Related Data Home Medications: Home Medications Medication Instructions Recorded Confirmed cholecalciferol (vitamin D3) 25 25 mcg PO DAILY 02/28/20 10/14/21 mcg (1,000 unit) capsule fexofenadine 180 mg tablet 180 mg PO DAILY 02/28/20 10/14/21 (Melody Allergy) oxycodone-acetaminophen 5 mg-325 1 tab PO Q8H PRN 02/28/20 10/14/21 mg tablet pregabalin 300 mg capsule (Lyrica) 300 mg PO BID 02/28/20 10/14/21 cyclobenzaprine 10 mg tablet 10 mg PO BEDTIME 12/25/20 10/14/21 varenicline 0.5 mg tablet 0.5 mg PO BID 12/25/20 10/14/21 lancets 33 gauge (TRUEplus Lancets) #100 ea 04/28/21 10/14/21 lidocaine 5 % topical patch 0 patch topical 04/28/21 10/14/21 (Lidoderm) loratadine 10 mg tablet 10 mg PO DAILY 04/28/21 10/14/21 morphine 15 mg tablet,extended 15 mg PO Q12H 07/21/21 10/14/21 release naloxone 4 mg/actuation nasal 0 spray intranasal 07/21/21 10/14/21 spray (Narcan) Previous Rx's Medication Instructions Recorded diazepam 5 mg tablet (Valium) 5 mg PO ONCE PRN anxiety 1 day #1 03/04/20 tab sennosides 8.6 mg capsule (senna) 17.2 mg PO BEDTIME PRN 12/26/20 constipation 30 days #60 caps fesoterodine 8 mg tablet,extended 8 mg PO DAILY #90 tabs 04/16/21 release 24 hr (Toviaz) ketorolac 10 mg tablet 10 mg PO TID PRN pain 5 days #15 04/18/21 tabs tamsulosin 0.4 mg capsule (Flomax) 0.4 mg PO DAILY #14 caps 04/18/21 docusate sodium 100 mg capsule 100 mg PO DAILY 30 days #30 caps 09/24/21 pyridoxine (vitamin B6) 100 mg 100 mg PO DAILY 90 days #90 tabs 10/14/21 tablet omeprazole 20 mg capsule,delayed 20 mg PO DAILY #30 caps 04/29/22 release ketorolac 10 mg tablet 10 mg PO BID PRN pain 5 days #8 05/08/22 tabs <RACHEL Fleming - Last Filed: 05/08/22 14:45> Allergies/Adverse Reactions: Allergies Allergy/AdvReac Type Severity Reaction Status Date / Time duloxetine [From CYMBALTA] Allergy Severe SEVERE Verified 10/16/21 11:25 DIARRHEA/DEHYDRATION tramadol [TRAMADOL] Allergy Severe SEVERE Verified 10/16/21 11:25 DIARRHEA/DEHYDRATION pollen Allergy Unknown unknown Uncoded 07/21/21 16:21 <RACHEL Fleming - Last Filed: 05/08/22 14:45> Review of Systems Review of Systems: Constitutional : No Weight loss, No Fever, No Chills, No Night Sweats, No Fatigue, No Malaise ENT/Mouth : No Hearing loss, No Ear Pain, No Nasal Congestion, No Sinus Pain, No Hoarseness, No sore throat, No Rhinorrhea, No Swallowing Difficulty Eyes: No Eye Pain, No Swelling, No Redness, No Foreign Body, No Discharge, No Vision Changes Cardiovascular : No Chest Pain, No SOB, No Dyspnea on Exertion, No Orthopnea, No Edema, No Palpitations Respiratory : No Cough, No Sputum, No Wheezing, No Smoke Exposure, No Dyspnea Gastrointestinal : No Nausea, No Vomiting, No Diarrhea, No Constipation, No abdominal Pain, No Hematochezia, No Melena Genitourinary : no irregular bleeding, No Dysuria, No Urinary Frequency, No Hematuria, No Urinary Incontinence, No Urgency, No Flank Pain, No Urinary Flow Changes, No Hesitancy Musculoskeletal : Complaining of chronic right shoulder pain No Myalgias, No Joint Swelling Skin : No Skin Lesions, No rash Neuro : No Weakness, No Numbness, No Paresthesias, No Loss of Consciousness, No Dizziness, No Headache Psych : No Anxiety/Panic, No Depression, No SI/HI/AH/VH, No Social Issues, Heme/Lymph: No Bruising, No Bleeding,No Lymphadenopathy Endocrine : No Polyuria, No Polydipsia, No Temperature Intolerance <Estefania Chavarria MD - Last Filed: 05/08/22 17:18> [facility] Past Medical History Medical History: Medical History Epigastric pain Fibromyalgia H. pylori infection Renal calculi Spinal stenosis, cervical region Urinary incontinence <RACHEL Fleming - Last Filed: 05/08/22 14:45> Surgical History: Surgical History History of esophagogastroduodenoscopy (EGD) History of right knee surgery History of spinal fusion Hx of colonoscopy <RACHEL Fleming - Last Filed: 05/08/22 14:45> Family History Family History: Family History Mother Diabetes Family history of cancer Sister HTN (hypertension) Diabetes Maternal Grandmother Heart problem Father Medical history unknown <RACHEL Fleming - Last Filed: 05/08/22 14:45> Social History Social History: Social History Household Members: None Alcohol intake: current Alcohol intake frequency: does not drink Cigarettes Per Day: 6 Substance Use Type: Marijuana Advance Directives: No Advance Directives Information Provided: No Current occupational status: unemployed Current occupation: rt handed <RACHEL Fleming - Last Filed: 05/08/22 14:45> Physical Exam Vital Signs: Vital Signs: Last Vital Signs Temp 97.9 F 05/08/22 14:38 Pulse 88 05/08/22 14:38 Resp 22 H 05/08/22 14:38 BP 113/59 L 05/08/22 14:38 Pulse Ox 95 05/08/22 14:38 O2 Del Method Room Air 05/08/22 14:38 BMI result Body Mass Index 28.3 <RACHEL Fleming - Last Filed: 05/08/22 14:45> Vital Signs: Last Vital Signs Temp 97.9 F 05/08/22 14:38 Pulse 88 05/08/22 14:38 Resp 22 H 05/08/22 14:38 BP 113/59 L 05/08/22 14:38 Pulse Ox 95 05/08/22 14:38 O2 Del Method Room Air 05/08/22 14:38 BMI result Body Mass Index 28.3 <Estefania Chavarria MD - Last Filed: 05/08/22 17:18> Const: Other: Appearance: Alert. Oriented X3. No acute distress. Eyes: Pupils equal, round and reactive to light. ENT: Pharynx normal. Neck: Normal inspection. Neck supple. No lymph nodes noted. No crepitus CVS: Normal heart rate and rhythm. Pulses normal. Normal S1 and S2 Respiratory: No respiratory distress. Breath sounds normal. No Wheezing. No rales Abdomen: Soft and nontender. No rigidity. No distention. Skin: Skin warm and dry. Normal skin color. Normal skin turgor. Extremities: No lower extremity edema. No Lacerations. No Rash. Right arm in a sling. Right shoulder looks normal, no erythema, no swelling. Pain to palpation throughout the whole shoulder, normal pulses 1 bilaterally. No extremity discoloration Neuro: Oriented X 3. No motor deficit. No sensory deficit. Moving all extremities. No slurred speech. CN 2 through 12 grossly intact Psych: calm, cooperative, teary <Estefania Chavarria MD - Last Filed: 05/08/22 17:18> Course Course Course Narrative: RME-- 52 yo F w/PMHx R shoulder fx s/p ORIF 03/24/22 at [facility] c/o increasing R shoulder pain s/p PT this week. 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 Denies known injury, trauma or fall. Patient in sling, Diffuse R shoulder swelling noted with old surgical scars, no erythema/crepitus decreased range of motion secondary to pain, tearful during the eval. Neurovascular intact distally XRs ordered, patient will need pain control <RACHEL Fleming - Last Filed: 05/08/22 14:45> Medical Decision Making Medical Decision Making MDM Narrative: -I discussed the physical exam and x-ray findings with the patient, patient likely has tendinitis. -patient was given 1 dose of IM Toradol - <Estefania Chavarria MD - Last Filed: 05/08/22 17:18> Differential Diagnosis Differential Diagnoses: The differential diagnosis associated with the presentation includes (Rotator cough tear, tendonitis, fracture, dislocation) <Estefania Chavarria MD - Last Filed: 05/08/22 17:18> Independent Interpretation I performed an independent interpretation of an: Plain X-Ray (My interpretation of right shoulder: No) <Estefania Chavarria MD - Last Filed: 05/08/22 17:18> Discharge Plan Discharge Clinical Impression: Chronic pain in shoulder <RACHEL Fleming - Last Filed: 05/08/22 14:45> Patient Disposition: Home, Self-Care <RACHEL Fleming - Last Filed: 05/08/22 14:45> Instructions: Calcific Tendinitis (ED) <RACHEL Fleming - Last Filed: 05/08/22 14:45> Additional Instructions: Please follow-up with your primary care physician tomorrow. If you have any worsening or new symptoms, please return to the emergency room or call 911 <RACHEL Fleming - Last Filed: 05/08/22 14:45> Prescriptions: New ketorolac 10 mg tablet 10 mg PO BID PRN (Reason: pain) 5 Days Qty: 8 0RF Rx Instructions: Do not take any NSAIDs with this medication, and a Tylenol or Percocet if needed No Action diazepam [Valium] 5 mg tablet 5 mg PO ONCE PRN (Reason: anxiety) 1 Days Qty: 1 0RF Rx Instructions: take 1 hour before the MRI procedure. Toviaz 8 mg tablet extended release 24 hr 8 mg PO DAILY Qty: 90 3RF docusate sodium 100 mg capsule 100 mg PO DAILY 30 Days Qty: 30 6RF omeprazole 20 mg capsule,delayed release(DR/EC) 20 mg PO DAILY Qty: 30 6RF ketorolac 10 mg tablet 10 mg PO TID PRN (Reason: pain) 5 Days Qty: 15 0RF tamsulosin [Flomax] 0.4 mg capsule 0.4 mg PO DAILY Qty: 14 0RF pregabalin [Lyrica] 300 mg capsule 300 mg PO BID cholecalciferol (vitamin D3) 25 mcg (1,000 unit) capsule 25 mcg PO DAILY fexofenadine [Melody Allergy] 180 mg tablet 180 mg PO DAILY oxycodone-acetaminophen 5-325 mg tablet 1 tab PO Q8H PRN morphine 15 mg tablet extended release 15 mg PO Q12H senna 8.6 mg capsule 17.2 mg PO BEDTIME PRN (Reason: constipation) 30 Days Qty: 60 3RF naloxone [Narcan] 4 mg/actuation spray,non-aerosol 0 spray intranasal cyclobenzaprine 10 mg tablet 10 mg PO BEDTIME varenicline 0.5 mg tablet 0.5 mg PO BID Rx Instructions: administer on days 4, 5, and 6 of therapy (DME) lancets [TRUEplus Lancets] 33 gauge misc See Rx Instructions Not Applicable DAILY Qty: 100 Rx Instructions: As directed loratadine 10 mg tablet 10 mg PO DAILY lidocaine [Lidoderm] 5 % adhesive patch,medicated 0 patch topical pyridoxine (vitamin B6) 100 mg tablet 100 mg PO DAILY 90 Days Qty: 90 3RF <RACHEL Fleming - Last Filed: 05/08/22 14:45>
[2022-05-08 14:38] VITALS: BP 113/59; PULSE 88; RESP 22; TEMP 36.6; O2SAT 95; BMI 28.3
== END 2022-05-08 18:40 | disposition left against medical advice (07) ==
PROVIDERS: Emergency Provider Emergency Medicine; PCP Internal Medicine
DX: M25.511 Pain in right shoulder (principal); F17.210 Nicotine dependence, cigarettes, uncomplicated; Z71.6 Tobacco abuse counseling; Z79.899 Other long term (current) drug therapy
CPT/HCPCS: 73030; 99281; 99283

== ENCOUNTER 2022-07-29 14:21 | Outpatient (REF) | payer MEDICAID, SELFPAY ==
--- NOTE | ~2022-07-29 | US_ITS ---
EXAMINATION: US ABDOMEN COMPLETE CLINICAL INFORMATION: Right upper quadrant pain. COMPARISON: Ultrasound retroperitoneal limited (renal only) 09/16/2021. CT abdomen and pelvis without contrast 04/18/2021. Ultrasound retroperitoneal limited (renal only) 04/07/2021. X-ray abdomen KUB 05/22/2015 and 05/15/2015. TECHNIQUE: Real-time imaging of the abdominal viscera. FINDINGS: PANCREAS: Unremarkable but incompletely visualized due to bowel gas distribution. ABDOMINAL AORTA: The proximal, mid, and distal segments are normal in caliber. INFERIOR VENA CAVA: Visualized portions are normal. LIVER: The liver is normal in size. The liver contour is normal. There is increased echogenicity of the liver due to hepatic steatosis. No focal hepatic lesion. There is no intrahepatic biliary duct dilatation seen. GALLBLADDER: Normal. The gallbladder is physiologically distended without evidence of stones, sludge, polyps, wall thickening or pericholecystic fluid. COMMON BILE DUCT: Normal in caliber measuring 0.4 cm in diameter. RIGHT KIDNEY: Normal. No hydronephrosis. No renal calculi or focal parenchymal lesions. The kidney measures 11.9 cm in maximum dimension. LEFT KIDNEY: Normal. No hydronephrosis. No renal calculi or focal parenchymal lesions. The kidney measures 11.3 cm in maximum dimension. SPLEEN: Normal. The spleen measures 7.1 cm in maximum dimension. FREE FLUID: None. US/US abdomen complete IMPRESSION: Hepatic steatosis
== END 2022-07-29 14:22 | disposition home or self-care (01) ==
LOC: HO.US 14:21
PROVIDERS: PCP Internal Medicine; Visit Provider Urology
DX: R10.11 Right upper quadrant pain (principal)
CPT/HCPCS: 76700

== ENCOUNTER 2022-11-13 13:34 | Outpatient (REF) | payer MEDICAID, SELFPAY ==
--- NOTE | ~2022-11-13 | US_ITS ---
EXAMINATION: US RETROPERITONEAL LIMITED (RENAL ONLY) CLINICAL INFORMATION: Calculus of kidney. COMPARISON: Ultrasound abdomen complete 07/29/2022. CT abdomen and pelvis 04/18/2021. TECHNIQUE: Real-time imaging of the kidneys. FINDINGS: RIGHT KIDNEY: 11.3 x 3.5 x 5.0 cm (SAG x AP x TRV). The kidney is normal in size, contour, and echogenicity. Renal cortical thickness is normal. No calculi or focal parenchymal lesions. No hydronephrosis. LEFT KIDNEY: 11.0 x 5.4 x 4.1 cm (SAG x AP x TRV). The kidney is normal in size, contour, and echogenicity. Renal cortical thickness is normal. No focal parenchymal lesions or hydronephrosis. Possible 2 mm nonobstructing calculus in the mid kidney. US/US renal BI IMPRESSION: Possible 2 mm nonobstructing calculus in the mid left kidney. No hydronephrosis..
== END 2022-11-13 13:35 | disposition home or self-care (01) ==
LOC: HO.US 13:34
PROVIDERS: PCP Internal Medicine; Visit Provider Urology
DX: N20.0 Calculus of kidney (principal)
CPT/HCPCS: 76775

== ENCOUNTER 2022-11-17 13:19 | Outpatient (AMB) | payer MEDICAID, SELFPAY ==
--- NOTE | 2022-11-17 13:31 | MHC.OFFVIS ---
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 Left LE worse than Right LE x 1 yr. pt states she has had multiple surgeries in the past few years. She states more VV keep popping up all over her legs, Left more so. Pt states she gets itching and burning over VV along w/ swelling. Accompanied by: Self / Same As Patient Allergies duloxetine [From CYMBALTA] Allergy (Severe, Verified 11/17/22 13:37) SEVERE DIARRHEA/DEHYDRATION tramadol [TRAMADOL] Allergy (Severe, Verified 11/17/22 13:37) SEVERE DIARRHEA/DEHYDRATION pollen Allergy (Unknown, Uncoded 11/17/22 13:37) unknown HPI M[facility]IMEDIA SPECIALIST/HHC Referral for VV HPI Details Very complex 52-year-old female presents for evaluation regarding pain of the lower extremities. She has an extensive medical history inclusive fibromyalgia and several back surgeries. She has had cervical spine surgery from an anterior and posterior approach in addition to a lumbar spine surgery from an anterior and posterior approach as well. She in addition has had right shoulder surgery as well. Of note she had seen our pain management team back in 03/20/2020. At that time she was going to have neuro surgery evaluation. She now presents for vascular evaluation. She did have complaints about some superficial spider telangiectasias. In addition she has complaints of a pain behind the left knee. [facility] Medical History Renal calculi Urinary incontinence H. pylori infection Epigastric pain Spinal stenosis, cervical region Fibromyalgia Surgical History History of esophagogastroduodenoscopy (EGD) Hx of colonoscopy History of right knee surgery History of spinal fusion Family History Mother Diabetes Family history of cancer Sister HTN (hypertension) Diabetes Maternal Grandmother Heart problem Father Medical history unknown Social History (Updated 11/17/22 @ 13:40 by NANCY Shaw) Household Members: None Alcohol intake: current Alcohol intake frequency: does not drink Cigarettes Per Day: 10 Substance Use Type: Marijuana Current occupational status: unemployed Current occupation: rt handed Review of Systems Const All systems reviewed & are unremarkable except as noted in HPI and below Reports no additional complaints ENT Reports Normal hearing present Card Denies chest pain, Denies chest pain at rest, Denies chest pain with activity and Denies pedal edema Resp Denies cough GI Denies abdominal pain Musc Denies abnormal gait, Denies muscle cramps and Denies radiating pain into limb Skin/Breast Denies skin ulcer and Denies wounds Neuro Reports Normal hearing present and Denies abnormal gait Psych Reports no additional complaints Physical Exam Vital Signs: BMI result Body Mass Index 28.3 Const General: cooperative, healthy appearing and comfortable Orientation/consciousness: oriented to person, oriented to place and oriented to time HEENT Head: Yes normal to inspection Neck Neck: Yes normal visual inspection Carotids: no bruits Chest Chest palpation & inspection: normal inspection of the chest Resp Effort & Inspection: normal respiratory effort and able to speak in complete sentences Auscultation: clear to auscultation bilaterally, no crackles, no rales, no rhonchi and no wheezes Cardio Rate: regular rate Rhythm: regular rhythm Heart sounds: S1 normal heart sound present and S2 normal heart sound present Bruits: no carotid bruits Peripheral pulses: Peripheral pulses 2+ throughout GI Inspection: Yes normal to inspection Skin Wounds: no wounds Hair: normal Neuro General: oriented to person, oriented to place and oriented to time Cranial nerves: Yes CN's II-XII intact bilaterally and Yes Normal hearing present Cognition (Neuro): normal cognition Motor exam (neuro): 5/5 motor strength present throughout Extrem Other: venous exam: +1 edema with some spider telangiectasias General: No clubbing, No cyanosis and No edema Psych Appearance: grossly normal Mental Status: mental status grossly normal Speech and movement: Normal speech and movement present Assessment & Plan Assessment & Plan (1) Varicose veins of left lower extremity with inflammation: Code(s): I83.12 - Varicose veins of left lower extremity with inflammation Plan: In short patient has unclear etiology of lower extremity pain. I do believe this may be more spinal and musculoskeletal. In addition she has a history of fibromyalgia. It does not appear to be arterial in nature she does have palpable arterial pulses. I have taken the liberty of ordering venous insufficiency test to rule that out. She will follow up with us after testing. Thank you for allowing us to assist in her care. If there are any questions or concerns please do not hesitate to contact Orders: Orders US venous duplex LE BI 1 Week I83.12 - Varicose veins of left lower extremity with inflammation Coding Level of Care Code New Pt Level 4 (30276) Diagnoses Varicose veins of left lower extremity with inflammation I83.12
[2022-11-17 13:33] VITALS: BMI 28.3
== END 2022-11-17 14:36 | disposition home or self-care (01) ==
PROVIDERS: PCP Internal Medicine; Visit Provider Surgery Vascular Surgery
DX: I83.12 Varicose veins of left lower extremity with inflammation (principal)
CPT/HCPCS: 99203

== ENCOUNTER → 2022-11-17 13:19 | Outpatient (BNVA) | payer MEDICAID, SELFPAY | PROVIDERS: PCP Internal Medicine; Visit Provider Surgery Vascular Surgery ==

== ENCOUNTER 2023-01-15 12:57 | Outpatient (REF) | payer MEDICAID, SELFPAY ==
--- NOTE | ~2023-01-15 | US_ITS ---
EXAMINATION: US LOWER EXTREMITY VENOUS (REFLUX EXAM), BILATERAL CLINICAL INDICATION: Chronic venous insufficiency with left lower extremity varicose veins with inflammation COMPARISON: None. TECHNIQUE: Color flow triplex imaging and compression Doppler was performed to evaluate both the deep and the superficial systems bilaterally. To evaluate the superficial system, the examination was performed in the upright position. Color-flow Doppler ultrasound and compression ultrasound were utilized. In addition, maneuvers were utilized to demonstrate reflux. FINDINGS: 1. DEEP VENOUS ULTRASOUND OF THE RIGHT LOWER EXTREMITY: Common Femoral Vein: Compressible, normal respiratory variation and augmented flow. Femoral Vein: Compressible, normal color flow and augmentation. Popliteal Vein: Compressible, normal augmentation. Deep Reflux: There is no evidence of reflux in the deep system in either the common femoral vein or the popliteal vein. There is no evidence of a Dumont's cyst. 2. SUPERFICIAL ULTRASOUND WITH DOPPLER OF RIGHT LOWER EXTREMITY: GREAT SAPHENOUS VEIN: Saphenofemoral Junction: 0.6 cm; Reflux: 0 ms Proximal Thigh: 0.2 cm; Reflux: 0 ms Mid Thigh: 0.3 cm; Reflux: 0 ms Above Knee: 0.2 cm; Reflux: 0 ms At Knee: 0.4 cm; Reflux: 0 ms Below Knee: 0.3 cm; Reflux: 0 ms Mid Calf: 0.2 cm; Reflux: 0 ms Ankle: 0.3 cm; Reflux: 0 ms DUPLICATED MEDIAL GREAT SAPHENOUS VEIN: Diameter: None imaged Reflux: NA DUPLICATED LATERAL GREAT SAPHENOUS VEIN: Diameter: 0.3 cm Reflux: None SMALL SAPHENOUS VEIN: Proximal: 0.3 cm; Reflux: 0 ms Distal: 0.2 cm; Reflux: 0 ms VEIN OF GIACOMINI: Size: NA Reflux: NA PERFORATORS: Location: Distal calf Size: 0.3 cm Reflux: None VARICOSITIES: Location: Distal calf arising from the commercial leasing agent vein Size: 0.2 cm Reflux: None 3. DEEP VENOUS ULTRASOUND OF THE LEFT LOWER EXTREMITY: Common Femoral Vein: Compressible, normal respiratory variation and augmented flow. Femoral Vein: Compressible, normal color flow and augmentation. Popliteal Vein: Compressible, normal augmentation. Deep Reflux: There is no evidence of reflux in the deep system in either the common femoral vein or the popliteal vein. There is no evidence of a Dumont's cyst. 4. SUPERFICIAL ULTRASOUND WITH DOPPLER OF LEFT LOWER EXTREMITY: GREAT SAPHENOUS VEIN: Saphenofemoral Junction: 0.5 cm; Reflux: 0 ms Proximal Thigh: 0.4 cm; Reflux: 0 ms Mid Thigh: 0.2 cm; Reflux: 0 ms Above Knee: 0.2 cm; Reflux: 0 ms At Knee: 0.2 cm; Reflux: 0 ms Below Knee: 0.2 cm; Reflux: 0 ms Mid Calf: 0.2 cm; Reflux: 0 ms Ankle: 0.2 cm; Reflux: 0 ms DUPLICATED MEDIAL GREAT SAPHENOUS VEIN: Diameter: None imaged Reflux: NA DUPLICATED LATERAL GREAT SAPHENOUS VEIN: Diameter: 0.3 cm Reflux: None SMALL SAPHENOUS VEIN: Proximal: 0.4 cm; Reflux: 0 ms Distal: 0.3 cm; Reflux: 0 ms VEIN OF GIACOMINI: Size: NA Reflux: NA PERFORATORS: Location: Distal calf extending into the small saphenous vein Size: 0.3 cm Reflux: None VARICOSITIES: Location: None significant Size: NA Reflux: NA US/US venous duplex LE BI IMPRESSION: Right: No significant reflux or venous insufficiency. No significant varicose veins seen. Left: No significant reflux or venous insufficiency. No significant varicose veins seen.
== END 2023-01-15 12:58 | disposition home or self-care (01) ==
LOC: HO.US 12:57
PROVIDERS: PCP Internal Medicine; Visit Provider Surgery Vascular Surgery
DX: I83.12 Varicose veins of left lower extremity with inflammation (principal)
CPT/HCPCS: 93970

== ENCOUNTER 2023-08-10 15:10 | Outpatient (AMB) | payer MEDICAID, SELFPAY ==
--- NOTE | 2023-08-10 15:46 | A.OFFVIS_ITS ---
Intake Visit Reasons: follow up/Kidney stones Intake Note: Patient is Present for Follow Up Urology Medication:Toviaz, Vitamin B6, Tamsulosin Antibiotic Allergies: None Blood Thinners: None Allergies duloxetine [From CYMBALTA] Allergy (Severe, Verified 08/10/23 15:47) SEVERE DIARRHEA/DEHYDRATION tramadol [TRAMADOL] Allergy (Severe, Verified 08/10/23 15:47) SEVERE DIARRHEA/DEHYDRATION pollen Allergy (Unknown, Uncoded 08/10/23 15:47) unknown Medication List - Last Reconciled 08/10/23 by Raul Frank MD cholecalciferol (vitamin D3) 25 mcg PO DAILY cyclobenzaprine 10 mg PO BEDTIME diazepam (Valium) 5 mg PO ONCE PRN 1 day docusate sodium 100 mg PO DAILY 30 days fesoterodine ER (Toviaz) 8 mg PO DAILY fexofenadine (Melody Allergy) 180 mg PO DAILY ketorolac 10 mg PO TID PRN 5 days ketorolac 10 mg PO BID PRN 5 days lancets (TRUEplus Lancets) As directed lidocaine 5% (Lidoderm) 0 patches topical loratadine 10 mg PO DAILY morphine ER 15 mg PO Q12H naloxone 4 mg/actuation (Narcan) 0 sprays intranasal omeprazole 20 mg PO DAILY oxycodone-acetaminophen 5-325 mg 1 tab PO Q8H PRN pregabalin (Lyrica) 300 mg PO BID pyridoxine (vitamin B6) 100 mg PO DAILY 90 days sennosides (senna) 17.2 mg (2 x 8.6 mg) PO BEDTIME PRN 30 days tamsulosin (Flomax) 0.4 mg PO DAILY varenicline 0.5 mg PO BID HPI Comments Details: Madison is a pleasant female. She is a patient of . She is seen for the following urologic conditions - nephrolithiasis - overactive bladder Last seen in 2021 Discomfort right side. On exam back related pain Would like Toviaz refill Overactive bladder Response well to Toviaz Failed on oxybutynin Nephrolithiasis Initial presentation April through emergency room Imaging - 05/06 CT scan 2 mm stone on left, 3 mm stone on right with small stone in bladder - 10/06 renal ultrasound no evidence of stones - 11/07 renal ultrasound possible 2 mm right Several prior procedures for nephrolithiasis ? [facility] Medical History Renal calculi Urinary incontinence H. pylori infection Epigastric pain Spinal stenosis, cervical region Fibromyalgia Surgical History History of esophagogastroduodenoscopy (EGD) Hx of colonoscopy History of right knee surgery History of spinal fusion Family History Mother Diabetes Family history of cancer Sister HTN (hypertension) Diabetes Maternal Grandmother Heart problem Father Medical history unknown Social History (Updated 11/17/22 @ 13:40 by NANCY Shaw) Household Members: None Alcohol intake: current Alcohol intake frequency: does not drink Cigarettes Per Day: 10 Substance Use Type: Marijuana Current occupational status: unemployed Current occupation: rt handed Review of Systems Const Denies chills and Denies fever(s) Card Reports no additional complaints and Denies syncope Resp Denies cough GI Denies abdominal pain and Denies heartburn Reports as per HPI and Denies change in libido Neuro Denies syncope Psych Denies change in libido Endo Denies change in libido Physical Exam Const General: cooperative, healthy appearing, comfortable and no acute distress Orientation/consciousness: patient oriented x3 HEENT Face and sinus: Yes normal facial exam Mouth: moist mucous membranes Neck Neck: Yes normal visual inspection, Yes full ROM and Yes trachea midline Chest Chest palpation & inspection: normal inspection of the chest Resp Effort & Inspection: normal respiratory effort, able to speak in complete sentences and no respiratory distress GI Inspection: Yes normal to inspection Back/Spine/Pelvis Cervical Spine: normal cervical lordosis Thoracic/Lumbar Spine: thoracic and lumbar spine normal to inspection Skin General skin exam: no rashes or lesions noted Neuro General: patient oriented x3, gait normal, tone normal and moves all extremities Extrem General: Yes normal to inspection and Yes capillary refill normal Assessment & Plan Assessment & Plan (1) Renal calculi: Code(s): N20.0 - Calculus of kidney Category: Medical (2) Overactive bladder: Code(s): N32.81 - Overactive bladder Category: Medical Plan Renal ultrasound Refill Toviaz Orders: Orders US renal BI 1 Month N20.0 - Calculus of kidney Medications: Refilled fesoterodine ER (Toviaz) 8 mg PO DAILY 90 tabs 2RF N20.0 - Calculus of kidney Patient Instructions: Imaging studies, laboratory and physical exam results were discussed and reviewed in detail. No major barriers to patient understanding were identified. An opportunity to ask questions regarding the treatment plan was provided. All questions were answered. The patient expressed understanding and agreement with the above treatment plan. The patient is aware they should contact our office by phone for worsening of their current condition or the appearance of new urologic symptoms. Compliance is encouraged with any medications and followup testing that is ordered. It is a privilege to participate in the urologic care of your patient. If you have any questions or concerns regarding treatment for the above conditions, or other urologic issues, please do not hesitate to contact me. The office telephone contact is [phone]. This note is constructed using voice recognition software. While every effort has been made to ensure accuracy voip technician errors may have been included. Yours sincerely, Dr Raul Frank MD, [facility] - Urology Providers of Expert, Compassionate Care for the Genitourinary System Coding Level of Care Code Est Pt Level 4 (04178) Diagnoses Renal calculi N20.0 Overactive bladder N32.81
== END 2023-08-10 16:01 | disposition home or self-care (01) ==
PROVIDERS: PCP Internal Medicine; Visit Provider Urology
DX: N20.0 Calculus of kidney (principal); N32.81 Overactive bladder
CPT/HCPCS: 99213

== ENCOUNTER → 2023-08-10 15:10 | Outpatient (BNVA) | payer MEDICAID, SELFPAY | PROVIDERS: PCP Internal Medicine; Visit Provider Urology | DX: N20.0 Calculus of kidney (principal); N32.81 Overactive bladder | CPT/HCPCS: 99212 ==

== ENCOUNTER 2023-09-01 13:05 | Outpatient (AMB) | payer MEDICAID, SELFPAY ==
--- NOTE | 2023-09-01 13:08 | A.OFFVIS_ITS ---
Vital Signs 3 09/01/23 13:09 Height 5 ft 3 in Weight 153 lb 7.068 oz BMI 27.2 BP 146/72 H Blood Pressure Location Lt brachial Position Sitting Pulse 76 Intake Visit Reasons: pt req follow up appt Intake Note: Madison presents in the office as a follow up appt. CC: She states that every time that she eats she feels like her stomach gets very bloated. She gets both constipation and diarrhea - she has at least 1-3 BM a day/ She is unable to eat more than once a day - she states that she drinks coffee in the AM. She is not sure if it is stress from losing her father and nephew. Property Specialist Required: No Allergies duloxetine [From CYMBALTA] Allergy (Severe, Verified 09/01/23 13:12) SEVERE DIARRHEA/DEHYDRATION tramadol [TRAMADOL] Allergy (Severe, Verified 09/01/23 13:12) SEVERE DIARRHEA/DEHYDRATION pollen Allergy (Unknown, Uncoded 09/01/23 13:12) unknown HPI HPI pt req follow up appt: Details: Assessment & Plan (1) Constipation: ?Code(s): K59.00 - Constipation, unspecified ?Plan: she received her omeprazole and now she is doing well with her GERD.? She found that the senna was helpful for constipation but she is not taking it every day.? I instructed her that she can feel free to play with that and find a dose that she can take regularly so that her bowels do not get backed up.? She has some fear of diarrhea but I tell her she can take 1 a day or even 1 every other day to try to maintain a regular motility.? She was also using [id number] Dulcolax which she does fine can give her diarrhea as I would expect as it somewhat stronger.? At this point she is content to play with this and will I will see her again in 6 months. (2) Chronic GERD: ?Code(s): K21.9 - Gastro-esophageal reflux disease without esophagitis TODAY'S VISIT Patient has been lost to follow-up since 07/2021 Her nephew was killed by gun violence, his will be tomorrow. Mateus Taylor was her nephew who was killed. She is only eating once a day. she is having bloating if she eats anything and she gets full very quickly. She also has been having rectal pain, sometimes intermittently, and sometimes she passes gas and it goes away but sometimes not. She had 2 more surgeries, a cervical fusion and shoulder surgery. We will try bentyl and get some basic bloodwork before proceeding further. Had EGD/colon in 2019=hyperplastic polyps and + H pylori. Get HP stool to confirm eradication (can't get into [facility] now). ROV 6 weeks PFSH Medical History (Updated 09/01/23 @ 13:52 by NI Perez) Renal calculi Urinary incontinence H. pylori infection Epigastric pain Spinal stenosis, cervical region Fibromyalgia Surgical History (Updated 09/01/23 @ 13:13 by NANCY Wick) Hx of shoulder surgery Hx of neck surgery History of esophagogastroduodenoscopy (EGD) Hx of colonoscopy History of right knee surgery History of spinal fusion Family History Mother Diabetes Family history of cancer Sister HTN (hypertension) Diabetes Maternal Grandmother Heart problem Father Medical history unknown Social History Household Members: None Alcohol intake: current Alcohol intake frequency: does not drink Cigarettes Per Day: 10 Substance Use Type: Marijuana Current occupational status: unemployed Current occupation: rt handed Review of Systems Const Denies fatigue, Denies fever(s), Denies night sweats, Reports poor appetite and Denies weight loss ENT Reports Normal hearing present, Denies dental pain, Denies dysphagia, Denies hearing loss, Denies mouth pain, Denies odynophagia, Denies throat swelling, Denies tongue swelling and Reports other (Dentition adequate) Card Reports no additional complaints Resp Reports no additional complaints GI Details: Rectal pain Denies abdominal pain, Denies melena, Reports bloating, Denies hematochezia, Denies constipation, Denies GI cramping, Denies dysphagia, Denies excessive flatus, Denies early satiety, Reports heartburn, Denies diarrhea, Denies nausea, Denies odynophagia, Denies vomiting and Denies hematemesis Skin/Breast Denies pruritus, Denies lesions, Denies rash and Denies jaundice Neuro Reports Normal hearing present and Denies Abnormal speech present Endo Denies fatigue Aller/Immun Denies throat swelling and Denies tongue swelling Physical Exam Vital Signs: Last Vital Signs Pulse 76 09/01/23 13:09 BP 146/72 H 09/01/23 13:09 BMI result Body Mass Index 27.2 Const General: cooperative, no acute distress, well developed and well groomed Nutritional Appearance: average body habitus and well nourished Orientation/consciousness: oriented to person, oriented to place and oriented to time Limitations: No language barrier HEENT Head: Yes normocephalic and Yes atraumatic Eyes General: appearance normal, both eyes and all related structures Pupils: Equal, round and reactive pupils present Neck Neck: Yes normal visual inspection and Yes no lymphadenopathy Thyroid: Thyroid normal Resp Effort & Inspection: normal respiratory effort and able to speak in complete sentences Auscultation: clear to auscultation bilaterally Cardio Rate: regular rate Rhythm: regular rhythm Heart sounds: Normal, physiologic split S2 sound present Peripheral pulses: radial pulses present and posterior tibial pulses present GI Inspection: No distended, No Abdominal panniculus present and Yes scar Palpation (GI): Soft to palpation, nontender, no guarding, not rigid and No hepatosplenomegaly present Percussion: Yes normal to percussion Auscultation: normal bowel sounds Rectal Exam - Female: deferred Abdomen image: 2 1. surgical scar ant lumbar approach Skin General skin exam: no rashes or lesions noted, turgor normal, skin not dry, no jaundice, No spider nevi and no striae Rashes: no rashes Nails: normal Neuro General: oriented to person, oriented to place and oriented to time Cranial nerves: Yes Equal, round and reactive pupils present and Yes Normal hearing present Speech: No Abnormal speech present Extrem General: Yes normal to inspection, No clubbing, No cyanosis and No edema Shoulder/upper arm images: 2 1. surgical scars 2. Psych Appearance: grossly normal and well kempt Mental Status: mental status grossly normal Speech and movement: Normal speech and movement present Affect: normal affect Attitude: cooperative Thought process: Normal thought process present and not confabulating Thought content: Normal thought content present Insight: Limited insight present (Psych) Judgement: Limited judgement present (Psych) Assessment & Plan Assessment & Plan (1) Chronic GERD: Code(s): K21.9 - Gastro-esophageal reflux disease without esophagitis Category: Medical (2) Constipation: Code(s): K59.00 - Constipation, unspecified Category: Medical (3) IBS (irritable bowel syndrome): Code(s): K58.9 - Irritable bowel syndrome without diarrhea Category: Medical (4) Abdominal pain: Code(s): R10.9 - Unspecified abdominal pain Category: Medical Plan Patient has been lost to follow-up since 07/2021 Her nephew was killed by gun violence, his will be tomorrow. Mateus Taylor was her nephew who was killed. She is only eating once a day. she is having bloating if she eats anything and she gets full very quickly. She also has been having rectal pain, sometimes intermittently, and sometimes she passes gas and it goes away but sometimes not. She had 2 more surgeries, a cervical fusion and shoulder surgery. We will try bentyl and get some basic bloodwork before proceeding further. Had EGD/colon in 2019=hyperplastic polyps and + H pylori. Get HP stool to confirm eradication (can't get into [facility] now). ROV 6 weeks Orders: Orders 2 H pylori Ag Stool 09/01/23 K58.9 - Irritable bowel syndrome without diarrhea Comprehensive Met. Panel 09/01/23 R10.9 - Unspecified abdominal pain Complete Blood Count Auto Diff 09/01/23 R10.9 - Unspecified abdominal pain TSH reflex Free T4 09/01/23 R10.9 - Unspecified abdominal pain Medications: New 2 dicyclomine 20 mg PO QID PRN 120 tabs 1RF abdominal pain 30 days K58.9 - Irritable bowel syndrome without diarrhea Refilled 2 omeprazole 20 mg PO DAILY 30 caps 6RF K21.9 - Gastro-esophageal reflux disease without esophagitis docusate sodium 100 mg PO DAILY 30 caps 6RF 30 days K59.00 - Constipation, unspecified Discontinued 2 sennosides Discontinued Reason: Patient no longer taking 17.2 mg (2 x 8.6 mg) PO BEDTIME 30 days PRN 60 caps 3RF constipation K59.00 - Constipation, unspecified Coding Level of Care Code Est Pt Level 3 (29910) Diagnoses Chronic GERD K21.9 Constipation K59.00 IBS (irritable bowel syndrome) K58.9 Abdominal pain R10.9
[2023-09-01 13:09] VITALS: BP 146/72; PULSE 76; BMI 27.2
== END 2023-09-01 13:59 | disposition home or self-care (01) ==
LOC: HO.HGI 13:05
PROVIDERS: PCP Internal Medicine; Visit Provider Nurse Practitioner
DX: K21.9 Gastro-esophageal reflux disease without esophagitis (principal); K59.00 Constipation, unspecified; K58.9 Irritable bowel syndrome, unspecified; R10.9 Unspecified abdominal pain
CPT/HCPCS: 99213

== ENCOUNTER → 2023-09-01 13:05 | Outpatient (BNVA) | payer MEDICAID, SELFPAY | PROVIDERS: PCP Internal Medicine; Visit Provider Nurse Practitioner | DX: K21.9 Gastro-esophageal reflux disease without esophagitis (principal); K58.0 Irritable bowel syndrome with diarrhea; K58.1 Irritable bowel syndrome with constipation; R10.9 Unspecified abdominal pain; R14.0 Abdominal distension (gaseous) | CPT/HCPCS: 99212 ==

== ENCOUNTER 2023-09-09 12:57 | Outpatient (REF) | payer MEDICAID, SELFPAY ==
--- NOTE | ~2023-09-09 | US_ITS ---
EXAMINATION: US RETROPERITONEAL LIMITED (RENAL ONLY) CLINICAL INFORMATION: Calculus of kidney. COMPARISON: Renal ultrasound 11/13/2022. Ultrasound abdomen complete 07/29/2022. CT abdomen and pelvis 04/18/2021. X-ray KUB 05/22/2015 and 05/15/2015. TECHNIQUE: Real-time imaging of the kidneys. FINDINGS: RIGHT KIDNEY: 12.0 x 3.8 x 4.1 cm (SAG x AP x TRV). The kidney is normal in size, contour, and echogenicity. Renal cortical thickness is normal. No calculi or focal parenchymal lesions. No hydronephrosis. Echogenic focus likely nonobstructing stone to millimeter. LEFT KIDNEY: 10.5 x 4.8 x 3.7 cm (SAG x AP x TRV). The kidney is normal in size, contour, and echogenicity. Renal cortical thickness is normal. No calculi or focal parenchymal lesions. No hydronephrosis. US/US renal BI IMPRESSION: 1. Echogenic focus in the right kidney likely a nonobstructing stone. 2. No ultrasound evidence of renal obstruction or hydronephrosis.
[2023-09-09 13:50] LABS: MANUAL DIFF FLAG NO
[2023-09-09 14:35] LABS: Basophils Absolute Auto 0.1 X10*3/uL (0.0-0.2); Basophils Percent Auto 0.8 % (0-2); Eosinophils Absolute Auto 0.2 X10*3/uL (0.0-0.4); Eosinophils Percent Auto 2.6 % (0-4); Hematocrit 42.2 % (37.0-47.0); Hemoglobin 13.9 g/dl (12.0-16.0); Imm Gran Abs Auto 0.02 X10*3/uL (0.00-0.03); Imm Gran Pct Auto 0.3 % (0.0-0.4); Lymphocytes Absolute Auto 3.7 X10*3/uL (1.2-4.9); Lymphocytes Percent Auto 47.7 % (20-40); Mean Corpuscular HGB Conc 32.9 g/dl (31.0-35.0); Mean Corpuscular Hemoglobin 29.1 pg (27.0-33.0); Mean Corpuscular Volume 88.3 fL (80.0-98.0); Mean Platelet Volume 12.4 fL (9.4-12.3); Monocytes Absolute Auto 0.7 X10*3/uL (0.1-1.2); Monocytes Percent Auto 8.5 % (2-11); Neutrophils Absolute Auto 3.1 x10*3/uL (2.0-8.3); Neutrophils Percent Auto 40.1 % (45-73); Platelet Count 243 X10*3/uL (160-400); Red Blood Count 4.78 X10*6/uL (4.20-5.50); Red Cell Distribution Width 14.4 % (11.0-16.0); White Blood Count 7.7 X10*3/uL (4.8-10.8)
[2023-09-09 15:05] LABS: Alanine Aminotransferase 11 U/L (0-31); Albumin Level 4.1 g/dL (3.5-5.0); Alkaline Phosphatase 88 U/L (39-117); Anion Gap 13 (12-20); Aspartate Amino Transferase 13 U/L (5-31); Bilirubin Total 0.5 mg/dL (0.0-1.0); Blood Urea Nitrogen 9 mg/dL (9-16); Calcium 10.2 mg/dL (8.4-10.2); Carbon Dioxide 27 mmol/L (22-29); Chloride 106 mmol/L (96-108); Estimated Glomerular Filt Rate > 60; Glucose Random 107 mg/dL (60-115); Potassium 3.8 mmol/L (3.3-5.1); Sodium 142 mmol/L (135-145); Total Protein 7.5 g/dL (6.5-8.0)
== END 2023-09-09 12:58 | disposition home or self-care (01) ==
LOC: HO.US 12:57
PROVIDERS: Nurse Practitioner; PCP Internal Medicine; Visit Provider Urology
DX: N20.0 Calculus of kidney (principal); R10.9 Unspecified abdominal pain
CPT/HCPCS: 36415; 76775; 80053; 84443; 85025

== ENCOUNTER 2024-07-03 13:50 | Outpatient (AMB) | payer MEDICAID, SELFPAY ==
--- OUTSIDE RECORDS SUMMARY | 2024-07-03 13:54 | XMS_ITS | Encounter Summary ---
Author Organization [employer] Address [address] [address] Care Team Providers Care Post Doc Fellowship Name Role Phone Natalie Cavazos MD Primary Care Provider [phone] Reason for Visit * Reason Comments Med Refill Encounter Details Date Type Department Care Team ([facility] Contact Info) Description 01/15/2023 Refill [facility] [address], [place] [id number] Natalie Cavazos MD [address] [place] [address] Failed back surgical syndrome Social History Tobacco Use Types Packs/Day Years Used Date Smoking Tobacco: Every Day Cigarettes 0.8 14 Cigars Smokeless Tobacco: Former Alcohol Use Standard Drinks/Week Comments Not Currently 0 (1 standard drink = 0.6 oz pur e alcohol) Alcohol Answer Date Recorded How often do you have a drink containing alcohol ? 0 01/30/2022 How many drinks containing a lcohol do you have on a typical day when you are drinking? 0 01/30/2022 How often do you have six or more drinks on one occasion? 0 01/30/2022 Depression Answer Date Recorded Patient Health Questionnaire-9 Score 22 08/17/2022 Housing Stability Answer Date Recorded What is your housing situation today? I have sheri vieyra 12/02/[address] you li ve. Do you have problems with any of the following? None of the above 12/02/2022 Food Insecurity Answer Date Recorded Within the past 12 months, y ou worried that your food would run out before you got money to buy more: Never True 12/02/2022 Within the past 12 months,th e food you bought just didn't last and you didn't have enough money to get more: Not on file Transportation Answer Date Recorded In the past 12 months, has l ack of transportation kept you from medical appts, meetings, work or from getting things needed for daily living? No 12/02/2022 Utilities Answer Date Recorded In the past 12 months, has t he electric, gas, oil or water company threatened to shut off services in your home? No 12/02/2022 Depression Answer Date Recorded Patient Health Questionnaire-2 Score 6 08/17/2022 Comments Unknown Sex and Gender Information Value Date Recorded Sex Assigned at Female 12/15/2021 10:18 AM EDT Legal Sex Female 10:18 AM EDT Gender Identity Female 12/15/2021 10:18 AM EDT Sexual Orientation Straight 12/15/2021 10 :18 AM EDT documented as of this encounter Plan of Treatment Upcoming Encounters Date Type Department Care Team (Late st Contact Info) Description 08/31/2024 2:30 PM EDT Clinical Support [facility] [address] [place] [address] Erinn Hernández, MIKAYLA [address] [place] [address] 09/07/2024 2:30 PM EDT Office Visit [facility] [address] [place] [address] Natalie Cavazos MD [address] [place] [address] documented as of this encounter Visit Diagnoses Diagnosis Failed back surgical syndrome documented in this encounter Additional Health Concerns Assessment Noted Time PHQ-9 Depression Total Score: 22 023 3:00 PM EDT documented as of this encounter Care Teams Post Doc Fellowship Relationship Specialty Start Date End Date Natalie Cavazos MD [address] [place] [address] PCP - General Internal Medicine 02/15/18 documented as of this encounter
--- OUTSIDE RECORDS SUMMARY | 2024-07-03 13:54 | XMS_ITS | Clinical Summary ---
Author Organization [facility] Address 175 [place] [address] Phone Care Team Providers Care Whey Department Operator Name Role Phone Natalie Cavazos MD Primary Care Provider [phone] Allergies Active Allergy Reactions Criticality Noted Date Comments Duloxetine 09/02/2020 Cymbalta [Duloxetine-fd&c Blue #2] Pollen Extracts 11/24/2023 Tramadol 09/02/2020 Medications UNABLE TO FIND Nutritional Supplements (VITAMIN D BOOSTER OR) Take?by mouth. Active omeprazole (PriLOSEC) [address] capsule Take 10 mg by mouth daily. Active oxyCODONE-aceta minophen (PERCOCET) 5-325 mg per tablet Take 1 tablet by mouth every 4 hours as needed. Active pregabalin (LYRICA) 300 mg capsule Take 300 mg by mouth 2 times daily. Active Active Problems Problem Noted Date Diagnosed Date Primary localized osteoarthrosis of left lower l eg 01/21/2024 Chronic pain of both knees 01/21/2024 Bilateral carpal tunnel syndrome 07/14/2022 DDD (degenerative disc disease), cervical 2021 Encounters Date Type Department Care Team Description 05/24/2024 2:45 PM EDT Office Visit Orthopedic Surgery [facility] 160 175 [facility] 160 [place] [address] Gerardo Argueta MD Chronic pain of both knees (Primary Dx); Acute left-sided low back pain without sciatica; S/P rotator cuff surgery from Last 3 Months Surgical History Surgery Date Site/Laterality Comments KNEE SURGERY Right PROCEDURE: HISTORICAL KNEE SURGERY NECK SURGERY 2020 PROCEDURE: HISTORICAL NECK SURGERY; COMMENT: ACDF C5-6 and a right C6 foraminotomy for residual arm pain ROTATOR CUFF REPAIR 03/24/2022 Right PROCEDURE: HISTORICAL ROTATOR CUFF REPAIR; COMMENT: Right shoulder arthroscopic rotator cuff repair and augmentation. subacromial decompression. distal clavicle resection. labral debridement on Medical History Medical History Date Comments Esophageal reflux DX:Esophageal reflux Chronic pain DX:Chronic pain Fibromyalgia DX:Fibromyalgia Effusion of neck DX:Effusion of neck Social History Tobacco Use Types Packs/Day Years Used Date Smoking Tobacco: Every Day Smokeless Tobacco: Never Alcohol Use Standard Drinks/Week Comments Never 0 (1 standard drink = 0.6 oz pur e alcohol) Comments Unknown Sex and Gender Information Value Date Recorded Sex Assigned at Not on file Legal Sex Female 4:50 AM EST Gender Identity Not on file Sexual Orientation Not on file Obstetrics History Last Filed Vital Signs Vital Sign Reading Time Taken Comments Blood Pressure 120/80 10/08/2021 10:16 AM EDT Si tting L Arm Pulse 78 09/03/2021 1:36 PM EDT Temperature - - Respiratory Rate - - Oxygen Saturation - - Inhaled Oxygen Concentration - - Weight 68 kg (150 lb) 01/21/2024 2:24 PM EST Height 160 cm (5' 2.99 ) 01/21/2024 2:24 PM EST Body Mass Index 26.58 01/21/2024 2:24 PM EST Plan of Treatment Upcoming Encounters Date Type Department Care Team (Late st Contact Info) Description 07/12/2024 2:00 PM EDT Office Visit Orthopedic Surgery - [place] 160 [address] [employer] [address] [place] [address] Dania Llamas PA [address] [employer] [address] [place] [address] Health Maintenance Due Date Last Done Comments Breast Cancer Screening 1968 Cervical Cancer Screening: Pap Smear 07/21/2014 07/22/2011 Pneumococcal Vaccine: 50+ Years (2 of 2 - PCV) 07/12/2017 07/12/2016 Pneumococcal Vaccine: Pediatrics (0 to 5 Years) and At-Risk Patients (6 to 64 Years) (2 of 2 - PCV) 07/12/2017 07/12/2016 Cholesterol Screening (Lipid Panel) 01/25/2022 Colorectal Cancer Screening: Colonoscopy 01/25/2022 HIV Screening 01/25/2022 Hepatitis C Screening 01/25/2022 Social Influencers of Health Screening 01/25/2022 COVID-19 Vaccine ( season) 2023 01/21/2023, 05/09/2021, 05/27/2020 Depression Screening 08/24/2024 08/25/2023 Influenza Vaccine (Season Ended) 2024 11/12/2022, 11/11/2021, 10/19/2020, Additional history exists DTaP,Tdap,and Td Vaccines (3 - Td or Tdap) 12/10/2025 12/11/2015, 08/09/2011 Zoster Vaccines Completed 09/18/2021, 07/10/2021 Hepatitis B Vaccines Completed 11/12/2022, 09/11/19 HIB Vaccines Aged Out No longer eligi ble based on patient's age to complete this topic HPV Vaccines Aged Out No longer eligi ble based on patient's age to complete this topic Hepatitis A Vaccines Aged Out No long er eligible based on patient's age to complete this topic IPV Vaccines Aged Out No longer eligi ble based on patient's age to complete this topic MMR Vaccines Aged Out No longer eligi ble based on patient's age to complete this topic Meningococcal ACWY Vaccine Aged Out N o longer eligible based on patient's age to complete this topic Meningococcal B Vaccine Aged Out No l onger eligible based on patient's age to complete this topic RSV Immunization Patients Under 20 months Aged Out No longer eligible based on patient's age to complete this topic Varicella Vaccines Aged Out No longer eligible based on patient's age to complete this topic Procedures Procedure Name Priority Date/Time Associated Diagnosis Comments XR SHOULDER 2+ VIEWS RIGHT Routine 05/24/2024 2:55 PM EDT Pain HM PAP SMEAR Routine 07/22/2011 from Last 3 Months or Most Recently Relevant to Health Maintenance Results * XR Shoulder 2+ Views Right (05/24/2024 2:55 PM EDT) Anatomical Region Laterality Modality Upper Extremities, Shoulder Right Comp uted Radiography Narrative 05/24/2024 3:04 PM EDT Shoulder x-rays May 24, 2024. ??AP, Grashey, Y lateral, axillary views. ?? No acute osseous abnormalities. ??Located glenohumeral joint. ??Good preservation of the glenohumeral articular cartilage. ??Subtle inferior lipping of the glenoid. Gerardo Argueta MD IMG XR PROCEDURES Final Result * Pap Smear (07/22/2011) Pap smear No Interpretation , Abstracted Historical Provider HEALTH MAINTENANCE Final Result from Last 3 Months or Most Recently Relevant to Health Maintenance Insurance MEDICAID - [place] Care Teams Whey Department Operator Relationship Specialty Start Date End Date Natalie Cavazos MD [address] [place] [address] PCP - General Internal Medicine 08/27/20
--- OUTSIDE RECORDS SUMMARY | 2024-07-03 13:54 | XMS_ITS | Encounter Summary ---
Author Organization [employer] Address [address] [address] Care Team Providers Care Kiln Pusher Name Role Phone Natalie Cavazos MD Primary Care Provider [phone] Reason for Visit * Reason Onset Date Comments Med Refill 09/13/2023 Encounter Details Date Type Department Care Team ([facility] Contact Info) Description 09/13/2023 Telephone [facility] MED[facility]INE 230 [place] [address] Natalie Cavazos MD 505 [place] [address] Med Refill Social History Tobacco Use Types Packs/Day Years [...] Answer Date Recorded Patient Health Questionnaire-9 Score 11 08/25/2023 Patient Health Questionnaire-9 Score 11 08/25/2023 Last PHQ-9: Questionnaire Data Not on file 0 08/25/2023 Housing Stability Answer Date Recorded What is [...] got money to buy more: Never True 03/17/2023 Within the past 12 months,th e food you bought just didn't last and you didn't have enough money to get more: Never True Transportation Answer Date Recorded In the past [...] Answer Date Recorded Patient Health Questionnaire-2 Score 4 08/25/2023 Comments Unknown Sex and Gender Information Value Date Recorded Sex Assigned at Female 12/15/2021 10:18 AM EDT Legal Sex Female 10:18 AM EDT Gender Identity Female 12/15/2021 10:18 AM EDT Sexual Orientation Straight 12/15/2021 10 :18 AM EDT documented as of this encounter Miscellaneous Notes * Telephone Encounter - Marianne Marin - 09/13/2023 11:20 AM EDT TC from pt requesting medication refill. Medications needing refill : oxyCODONE (Roxicodone) 5 MG immediate release tablet To be sent to: [facility] - [place], [place] - 230 [facility] documented in this encounter Plan of Treatment Upcoming Encounters Date Type Department Care Team (Late st Contact Info) Description 08/31/2024 2:30 PM EDT Clinical Support [facility]S [address] [place] [address] Erinn Hernández RN 505 [place] [address] 09/07/2024 2:30 PM EDT Office Visit [facility] [address] [place] [address] Natalie Cavazos MD 505 [place] [address] documented as of this encounter Visit Diagnoses Not on filedocumented in this encounter Additional Health Concerns Assessment Noted Time PHQ-9 Depression Total Score: 11 024 2:03 PM EDT documented as of this encounter Care Teams Kiln Pusher Relationship Specialty Start Date End Date Natalie Cavazos MD 505 [place] [address] PCP - General Internal Medicine 02/15/18 documented as of this encounter
--- OUTSIDE RECORDS SUMMARY | 2024-07-03 13:54 | XMS_ITS | Encounter Summary ---
Author Organization [employer] Address [address] [address] Care Team Providers Care Waste Reduction Coordinator Name Role Phone Natalie Cavazos MD Primary Care Provider Reason for Visit * Reason Onset Date Comments Med Refill 12/31/2022 Encounter Details Date Type Department Care Team ([facility] Contact Info) Description 12/31/2022 Telephone [facility] MEDICINE 230 [place] [address] Natalie Cavazos MD 505 [place] [address] Med Refill Social History Tobacco Use Types [...] * Telephone Encounter - Marianne Marin - 12/31/2022 10:50 AM EST Tc from pt requesting med refill on; oxyCODONE (Roxicodone) 5 MG immediate release tablet [facility] - [place], [place] - 230 [facility] documented in this encounter Plan of Treatment Upcoming Encounters Date Type Department Care Team (Late st Contact Info) Description 08/31/2024 2:30 PM EDT Clinical Support [facility] MED & PEDS 505 [place] [address] Erinn Hernández RN 505 [place] [address] 09/07/2024 2:30 PM EDT Office Visit [facility] 505 [place] [address] Natalie Cavazos MD 505 [place] [address] documented as of this encounter Visit Diagnoses Not on filedocumented in this encounter Additional Health Concerns Assessment Noted Time PHQ-9 Depression Total Score: 22 023 3:00 PM EDT documented as of this encounter Care Teams Waste Reduction Coordinator Relationship Specialty Start Date End Date Natalie Cavazos MD [address] [place] [address] PCP - General Internal Medicine 02/15/18 documented as of this encounter
--- OUTSIDE RECORDS SUMMARY | 2024-07-03 13:54 | XMS_ITS | Encounter Summary ---
Author Organization [employer] Address [address] [address] Care Team Providers Care Environmental Auditor Name Role Phone Natalie Cavazos MD Primary Care Provider Reason for Visit * Reason Onset Date Comments Med Refill 10/11/2023 Encounter Details Date Type Department Care Team ([facility] Contact Info) Description 10/11/2023 Telephone [facility] MEDICINE 230 [place] [address] Natalie Cavazos MD 505 [place] [address] Med Refill Social History Tobacco Use Types [...] encounter Miscellaneous Notes * Telephone Encounter - Cyrus Natarajan - 10/11/2023 1:54 PM EDT TC from pt requesting medication refill. Medications needing refill : oxyCODONE (Roxicodone) 5 MG immediate release tablet To be sent to: [facility] - [place], [place] - 230 [facility] documented in this encounter Plan of Treatment Upcoming Encounters Date Type Department Care Team (Late st Contact Info) Description 08/31/2024 2:30 PM EDT Clinical Support [facility] MED & PEDS 505 [place] [address] Erinn Hernández RN 505 [place] [address] 09/07/2024 2:30 PM EDT Office Visit [facility] MED [facility] PEDS 505 [place] [address] Natalie Cavazos MD 505 [place] [address] documented as of this encounter Visit Diagnoses Not on filedocumented in this encounter Additional Health Concerns Assessment Noted Time PHQ-9 Depression Total Score: 11 024 2:03 PM EDT documented as of this encounter Care Teams Environmental Auditor Relationship Specialty Start Date End Date Natalie Cavazos MD 505 [place] [address] PCP - General Internal Medicine 02/15/18 documented as of this encounter
--- OUTSIDE RECORDS SUMMARY | 2024-07-03 13:54 | XMS_ITS | Encounter Summary ---
Author Organization [employer] Address [address] [address] Care Team Providers Care Fur Blowing Machine Attendant Name Role Phone Natalie Cavazos MD Primary Care Provider [phone] Reason for Visit * Reason Onset Date Comments Med Refill 06/16/2024 Encounter Details Date Type Department Care Team ([facility] Contact Info) Description 06/16/2024 Telephone [facility] MEDICINE [address] [place] [address] Natalie Cavazos MD 505 [place] [address] Med Refill Social History Tobacco Use Types [...] housing situation today? I have sheri vieyra 05/19/[address] you li ve. Do you have problems with any of the following? None of the above 05/19/2024 Food Insecurity Answer Date Recorded Within the past 12 months, y ou worried that your food would run out before you got money to buy more: Sometimes True 2024 Within the past 12 months,th e food you bought just didn't last and you didn't have enough money to get more: Sometimes True 05/19/2024 Transportation Answer Date Recorded In the past 12 months, has l ack of transportation kept you from medical appts, meetings, work or from getting things needed for daily living? Yes, it has kept me from medical appointments or getting medications. 05/19/2024 Utilities Answer Date Recorded In the past 12 months, has t he electric, gas, oil or water company threatened to shut off services in your home? No 05/19/2024 Depression Answer Date Recorded Patient Health Questionnaire-2 Score 4 08/25/2023 Internet Access Answer Date Recorded Internet Access Q1 Yes 05/19/2024 Internet Access Q2 Not on file 05/19/2024 Comments Unknown Sex and Gender Information Value Date Recorded Sex Assigned at Female 12/15/2021 10:18 AM EDT Legal Sex Female 10:18 AM EDT Gender Identity Female 12/15/2021 10:18 AM EDT Sexual Orientation Straight 12/15/2021 10 :18 AM EDT documented as of this encounter Miscellaneous Notes * Telephone Encounter - Justo Toledo - 06/16/2024 2:13 PM EDT TC from pt requesting medication refill. Medications needing refill : oxyCODONE (Roxicodone) 5 MG immediate release tablet To be sent to: [facility] pharmacy documented in this encounter Plan of Treatment Upcoming Encounters Date Type Department Care Team (Late st Contact Info) Description 08/31/2024 2:30 PM EDT Clinical Support [facility] & [facility] [address] [facility] [place] [address] Erinn Hernández, RN 505 [place] [address] 09/07/2024 2:30 PM EDT Office Visit [facility] MED & PEDS 505 [place] [address] Natalie Cavazos MD 505 [place] [address] documented as of this encounter Visit Diagnoses Not on filedocumented in this encounter Additional Health Concerns Assessment Noted Time PHQ-9 Depression Total Score: 11 024 2:03 PM EDT documented as of this encounter Care Teams Fur Blowing Machine Attendant Relationship Specialty Start Date End Date Natalie Cavazos MD 505 [place] [address] PCP - General Internal Medicine 02/15/18 documented as of this encounter
--- OUTSIDE RECORDS SUMMARY | 2024-07-03 13:54 | XMS_ITS | Clinical Summary ---
Author Organization [facility] Address [address] [place] [address] Care Team Providers Care Printing Sales Representative Name Role Phone Natalie Cavazos MD Primary Care Provider [phone] Social History Tobacco Use Types Packs/Day Years Used Date Smoking Tobacco: Never Assessed Sex and Gender Information Value Date Recorded Sex Assigned at Not on file Gender Identity Not on file Sexual Orientation Not on file Job Start Date Occupation Industry Not on file Not on file Not on file Plan of Treatment Health Maintenance Due Date Last Done Comments Hepatitis B Vaccines (1 of 3 - 3-dose series) 1968 Hepatitis C Screening 1968 COVID-19 Vaccine (#1) 1968 Depression Screening 1980 Preventative Health Evaluation 1986 DTap / Tdap / Td (1 - Tdap) 1987 Cervical Cancer Screening (P ap Smear) 1989 Colon Cancer Screening (Colonoscopy) 2013 Breast Cancer Screening (Mammogram) 2018 Shingrix-Zoster Vaccine (1 of 2) 2018 Influenza Vaccine (#1) 2023 Pneumococcal Vaccine Aged Out No long er eligible based on patient's age to complete this topic RSV Ped < 20 months Aged Out No longe r eligible based on patient's age to complete this topic Care Teams Printing Sales Representative Relationship Specialty Start Date End Date Natalie Cavazos MD [address] [place] [address] PCP - General Internal Medicine 03/22/20
--- OUTSIDE RECORDS SUMMARY | 2024-07-03 13:54 | XMS_ITS | Encounter Summary ---
Author Organization [employer] Address [address] [address] Care Team Providers Care Ehr Trainer Name Role Phone Natalie Cavazos MD Primary Care Provider Reason for Visit * Reason Onset Date Comments Med Refill 01/12/2024 Encounter Details Date Type Department Care Team ([facility] Contact Info) Description 01/12/2024 Telephone [facility] MEDICINE 230 [place] [address] Natalie Cavazos MD [address] [place] [address] Med Refill Social History Tobacco Use Types [...] * Telephone Encounter - Justo Toledo - 01/12/2024 12:59 PM EST TC from pt requesting medication refill. Medications needing refill : oxyCODONE (Roxicodone) 5 MG immediate release tablet To be sent to: [facility] documented in this encounter Plan of Treatment Upcoming Encounters Date Type Department Care Team (Late st Contact Info) Description 08/31/2024 2:30 PM EDT Clinical Support [facility] MED & PEDS [address] [place] [address] Erinn Hernández, MIKAYLA 505 [place] [address] 09/07/2024 2:30 PM EDT Office Visit [facility] MED & PEDS [address] [place] [address] Natalie Cavazos MD [address] [place] [address] documented as of this encounter Visit Diagnoses Not on filedocumented in this encounter Additional Health Concerns Assessment Noted Time PHQ-9 Depression Total Score: 11 024 2:03 PM EDT documented as of this encounter Care Teams Ehr Trainer Relationship Specialty Start Date End Date Natalie Cavazos MD [address] [place] [address] PCP - General Internal Medicine 02/15/18 documented as of this encounter
--- OUTSIDE RECORDS SUMMARY | 2024-07-03 13:54 | XMS_ITS | Encounter Summary ---
Author Organization [employer] Address [address] [address] Care Team Providers Care Extrusion Operator Name Role Phone Natalie Cavazos MD Primary Care Provider Reason for Visit * Reason Onset Date Comments Med Refill 11/30/2023 Encounter Details Date Type Department Care Team ([facility] Contact Info) Description 11/30/2023 Telephone [facility] MEDICINE 230 [place] [address] Natalie Cavazos MD 505 [place] [address] Med Refill Social History Tobacco Use Types [...] * Telephone Encounter - Cyrus Natarajan - 11/30/2023 11:52 AM EDT TC from pt requesting medication refill. Medications needing refill : oxyCODONE (Roxicodone) 5 MG immediate release tablet To be sent to: [facility] - [place], [place] - 230 [facility] documented in this encounter Plan of Treatment Upcoming Encounters Date Type Department Care Team (Late st Contact Info) Description 08/31/2024 2:30 PM EDT Clinical Support [facility] MED & PEDS [address] [place] [address] Erinn Hernández RN 505 [place] [address] 09/07/2024 2:30 PM EDT Office Visit [facility] MED & PEDS [address] [place] [address] Natalie Cavazos MD 505 [place] [address] documented as of this encounter Visit Diagnoses Not on filedocumented in this encounter Additional Health Concerns Assessment Noted Time PHQ-9 Depression Total Score: 11 024 2:03 PM EDT documented as of this encounter Care Teams Extrusion Operator Relationship Specialty Start Date End Date Natalie Cavazos MD [address] [place] [address] PCP - General Internal Medicine 02/15/18 documented as of this encounter
--- OUTSIDE RECORDS SUMMARY | 2024-07-03 13:54 | XMS_ITS | Encounter Summary ---
Author Organization [employer] Address [address] [address] Care Team Providers Care Email Marketing Coordinator Name Role Phone Natalie Cavazos MD Primary Care Provider Reason for Visit * Reason Onset Date Comments Med Refill 09/27/2023 Encounter Details Date Type Department Care Team ([facility] Contact Info) Description 09/27/2023 Telephone [facility] MEDICINE [address] [place] [address] Natalie Cavazos MD [address] [place] [address] Med Refill Social History Tobacco Use Types [...] * Telephone Encounter - Cyrus Natarajan - 09/27/2023 2:39 PM EDT TC from pt requesting medication refill. Medications needing refill : oxyCODONE (Roxicodone) 5 MG immediate release tablet To be sent to: [facility] - [place], [place] - 230 [facility] documented in this encounter Plan of Treatment Upcoming Encounters Date Type Department Care Team (Late st Contact Info) Description 08/31/2024 2:30 PM EDT Clinical Support [facility] MED & PEDS [address] [place] [address] Erinn Hernández RN 505 [place] [address] 09/07/2024 2:30 PM EDT Office Visit [facility] MED [facility] PED[facility] [address] [place] [address] Natalie Cavazos MD [address] [place] [address] documented as of this encounter Visit Diagnoses Not on filedocumented in this encounter Additional Health Concerns Assessment Noted Time PHQ-9 Depression Total Score: 11 024 2:03 PM EDT documented as of this encounter Care Teams Email Marketing Coordinator Relationship Specialty Start Date End Date Natalie Cavazos MD [address] [place] [address] PCP - General Internal Medicine 02/15/18 documented as of this encounter
--- OUTSIDE RECORDS SUMMARY | 2024-07-03 13:54 | XMS_ITS | Encounter Summary ---
Author Organization [employer] Address [address] [address] Care Team Providers Care Software Team Leader Name Role Phone Natalie Cavazos MD Primary Care Provider Reason for Visit * Reason Onset Date Comments Med Refill 07/03/2024 Encounter Details Date Type Department Care Team ([facility] Contact Info) Description 07/03/2024 Refill [facility]S [address] [place], [place] [id number] Natalie Cavazos MD [address] [place] [address] Chronic pain syndrome Social History Tobacco Use Types Packs/Day [...] encounter Miscellaneous Notes * Telephone Encounter - Annia Clarke - 07/03/2024 10:13 AM EDT TC from pt requesting medication refill. Medications needing refill : oxyCODONE (Roxicodone) 5 MG immediate release tablet To be sent to: [facility] documented in this encounter Plan of Treatment Upcoming Encounters Date Type Department Care Team ([facility] st Contact Info) Description 08/31/2024 2:30 PM EDT Clinical Support [facility] [address] [place] [address] Erinn Hernández, RN 505 [place] [address] 09/07/2024 2:30 PM EDT Office Visit [facility] [address] [place] [address] Natalie Cavazos MD [address] [place] [address] documented as of this encounter Visit Diagnoses Diagnosis Chronic pain syndrome documented in this encounter Additional Health Concerns Assessment Noted Time PHQ-9 Depression Total Score: 11 024 2:03 PM EDT documented as of this encounter Care Teams Software Team Leader Relationship Specialty Start Date End Date Natalie Cavazos MD [address] [place] [address] PCP - General Internal Medicine 02/15/18 documented as of this encounter
--- OUTSIDE RECORDS SUMMARY | 2024-07-03 13:54 | XMS_ITS | Encounter Summary ---
Author Organization [employer] Address [address] [address] Care Team Providers Care Asbestos Cement Sheet Supervisor Name Role Phone Natalie Cavazos MD Primary Care Provider Reason for Visit * Reason Onset Date Comments Call Back Request 08/30/2023 Encounter Details Date Type Department Care Team ([facility] Contact Info) Description 08/30/2023 Telephone [facility] MEDICINE [address] [place] [address] Natalie Cavazos MD [address] [place] [address] Call Back Request Social History Tobacco Use Types Packs/Day Years [...] * Telephone Encounter - Marianne Marin - 08/30/2023 2:01 PM EDT Tc from pt requesting a call back in regards appt tomorrow. documented in this encounter Plan of Treatment Upcoming Encounters Date Type Department Care Team ([facility] st Contact Info) Description 08/31/2024 2:30 PM EDT Clinical Support [facility] MED & PEDS [address] [place] [address] Erinn Hernández RN 505 [place] [address] 09/07/2024 2:30 PM EDT Office Visit [facility]ED[facility] [address] [place] [address] Natalie Cavazos MD [address] [place] [address] documented as of this encounter Visit Diagnoses Not on filedocumented in this encounter Additional Health Concerns Assessment Noted Time PHQ-9 Depression Total Score: 11 024 2:03 PM EDT documented as of this encounter Care Teams Asbestos Cement Sheet Supervisor Relationship Specialty Start Date End Date Natalie Cavazos MD [address] [place] [address] PCP - General Internal Medicine 02/15/18 documented as of this encounter
--- OUTSIDE RECORDS SUMMARY | 2024-07-03 13:54 | XMS_ITS | Encounter Summary ---
Author Organization [employer] Address [address] [address] Care Team Providers Care Last Sawyer Name Role Phone Natalie Cavazos MD Primary Care Provider Reason for Visit * Reason Onset Date Comments Med Refill 01/03/2024 Encounter Details Date Type Department Care Team ([facility] Contact Info) Description 01/03/2024 Telephone [facility] MEDICINE [address] [place] [address] Natalie Cavazos MD [address] [place] [address] Med Refill Social History Tobacco Use Types [...] * Telephone Encounter - Justo Toledo - 01/03/2024 11:56 AM EST TC from pt requesting medication refill. Medications needing refill : oxyCODONE (Roxicodone) 5 MG immediate release tablet To be sent to: [facility] documented in this encounter Plan of Treatment Upcoming Encounters Date Type Department Care Team (Late st Contact Info) Description 08/31/2024 2:30 PM EDT Clinical Support [facility] MED & PEDS [address] [place] [address] Erinn Hernández, MIKAYLA 505 [place] [address] 09/07/2024 2:30 PM EDT Office Visit [facility] MED & PEDS [address] [place] [address] Natalie Cavazos MD [address] [place] [address] documented as of this encounter Visit Diagnoses Not on filedocumented in this encounter Additional Health Concerns Assessment Noted Time PHQ-9 Depression Total Score: 11 024 2:03 PM EDT documented as of this encounter Care Teams Last Sawyer Relationship Specialty Start Date End Date Natalie Cavazos MD [address] [place] [address] PCP - General Internal Medicine 02/15/18 documented as of this encounter
--- OUTSIDE RECORDS SUMMARY | 2024-07-03 13:54 | XMS_ITS | Encounter Summary ---
Author Organization [employer] Address 75 [facility] [address] [place] [address] Care Team Providers Care Bowling Ball Mold Assembler Name Role Phone Natalie Cavazos MD Primary Care Provider Encounter Details Date Type Department Care Team ([facility] Contact Info) Description 01/27/2024 Telephone [facility] MEDICINE [address] [place] [address] Natalie Cavazos MD [address] [place] [address] Social History Tobacco Use Types Packs/Day Years [...] the past 12 months, has t he [employer] gas, oil or water company threatened to [...] Description 08/31/2024 2:30 PM EDT Clinical Support [facility] MED & PEDS [address] [place] [address] Erinn Hernández RN 505 [place] [address] 09/07/2024 2:30 PM EDT Office Visit [facility] MED & PEDS [address] [place] [address] Natalie Cavazos MD [address] [place] [address] documented as of this encounter Visit Diagnoses Not on filedocumented in this encounter Additional Health Concerns Assessment Noted Time PHQ-9 Depression Total Score: 11 024 2:03 PM EDT documented as of this encounter Care Teams Bowling Ball Mold Assembler Relationship Specialty Start Date End Date Natalie Cavazos MD [address] [place] [address] PCP - General Internal Medicine 02/15/18 documented as of this encounter
--- OUTSIDE RECORDS SUMMARY | 2024-07-03 13:54 | XMS_ITS | Encounter Summary ---
Author Organization [email or web address] Address [address] [place] [address] 7 [place] [address] Care Team Providers Care Conditioning Yard Supervisor Name Role Phone Natalie Cavazos MD Primary Care Provider Encounter Details Date Type Department Care Team ([facility] Contact Info) Description 08/24/2022 Abstract [facility] MED & PEDS [address] [place], [place] [phone] Natalie Cavazos MD [address] [place] [address] Social History Tobacco Use Types Packs/Day Years [...] Recorded Patient Health Questionnaire-9 Score 22 08/17/2022 Depression Answer Date Recorded Patient Health Questionnaire-2 Score 6 08/17/2022 Comments Unknown Sex and Gender Information Value Date Recorded Sex Assigned at Female 12/15/2021 10:18 AM EDT Legal Sex Female 10:18 AM EDT Gender Identity Female 12/15/2021 10:18 AM EDT Sexual Orientation Straight 12/15/2021 10 :18 AM EDT COVID-19 Exposure Response Date Recorded In the last 10 days, have yo u been in contact with someone who was confirmed or suspected to have Coronavirus/COVID-19? No / Unsure 08/17/2022 12:53 PM EDT documented as of this encounter Plan of Treatment Upcoming Encounters Date Type Department Care Team (Late st Contact Info) Description 08/31/2024 2:30 PM EDT Clinical Support [facility] MED & PEDS [address] [place] [address] Erinn Hernández, MIKAYLA 505 [place] [address] 09/07/2024 2:30 PM EDT Office Visit [facility] MED & PEDS [address] [place] [address] Natalie Cavazos MD [address] [place] [address] documented as of this encounter Visit Diagnoses Not on filedocumented in this encounter Additional Health Concerns Assessment Noted Time PHQ-9 Depression Total Score: 22 023 3:00 PM EDT documented as of this encounter Care Teams Conditioning Yard Supervisor Relationship Specialty Start Date End Date Natalie Cavazos MD [address] [place] [address] PCP - General Internal Medicine 02/15/18 documented as of this encounter
--- OUTSIDE RECORDS SUMMARY | 2024-07-03 13:54 | XMS_ITS | Encounter Summary ---
Author Organization [employer] Address [address] [address] Care Team Providers Care Pot Operator Name Role Phone Natalie Cavazos MD Primary Care Provider [phone] Reason for Visit * Reason Onset Date Comments Med Refill 07/08/2023 Encounter Details Date Type Department Care Team ([facility] Contact Info) Description 07/08/2023 Telephone [facility] MEDICINE [address] [place] [address] Natalie Cavazos MD 505 [place] [address] Med Refill Social History Tobacco Use Types [...] encounter Miscellaneous Notes * Telephone Encounter - Ced Mike - 07/08/2023 1:59 PM EDT TC from pt requesting medication refill. Medications needing refill: oxyCODONE (Roxicodone) 5 MG immediate release tablet To be sent to: [facility] documented in this encounter Plan of Treatment Upcoming Encounters Date Type Department Care Team (Late st Contact Info) Description 08/31/2024 2:30 PM EDT Clinical Support [facility] MED & PEDS [address] [place] [address] Erinn Hernández RN 505 [place] [address] 09/07/2024 2:30 PM EDT Office Visit [facility] MED & PEDS [address] [place] [address] Natalie Cavazos MD [address] [place] [address] documented as of this encounter Visit Diagnoses Not on filedocumented in this encounter Additional Health Concerns Assessment Noted Time PHQ-9 Depression Total Score: 22 08/17/ 023 3:00 PM EDT documented as of this encounter Care Teams Pot Operator Relationship Specialty Start Date End Date Natalie Cavazos MD [address] [place] [address] PCP - General Internal Medicine 02/15/18 documented as of this encounter
--- OUTSIDE RECORDS SUMMARY | 2024-07-03 13:54 | XMS_ITS | Encounter Summary ---
Author Organization [employer] Address [address] [address] Care Team Providers Care Scientific Editor Name Role Phone Natalie Cavazos MD Primary Care Provider Reason for Visit * Reason Onset Date Comments Med Refill 11/04/2023 Encounter Details Date Type Department Care Team ([facility] Contact Info) Description 11/04/2023 Telephone [facility] MEDICINE [address] [place] [address] Natalie Cavazos MD [address] [place] [address] Med Refill Social History Tobacco Use Types [...] * Telephone Encounter - Cyrus Natarajan - 11/04/2023 10:39 AM EDT TC from pt requesting medication refill. Medications needing refill : oxyCODONE (Roxicodone) 5 MG immediate release tablet To be sent to: [facility] - [place], [place] - [address] [facility] documented in this encounter Plan of Treatment Upcoming Encounters Date Type Department Care Team (Late st Contact Info) Description 08/31/2024 2:30 PM EDT Clinical Support [facility] MED & PEDS [address] [place] [address] Erinn Hernández RN [address] [place] [address] 09/07/2024 2:30 PM EDT Office Visit [facility] MED & PEDS [address] [place] [address] Natalie Cavazos MD [address] [place] [address] documented as of this encounter Visit Diagnoses Not on filedocumented in this encounter Additional Health Concerns Assessment Noted Time PHQ-9 Depression Total Score: 11 024 2:03 PM EDT documented as of this encounter Care Teams Scientific Editor Relationship Specialty Start Date End Date Natalie Cavazos MD [address] [place] [address] PCP - General Internal Medicine 02/15/18 documented as of this encounter
--- OUTSIDE RECORDS SUMMARY | 2024-07-03 13:54 | XMS_ITS | Encounter Summary ---
Author Organization [employer] Address [address] [address] Care Team Providers Care Diesel Engineer Name Role Phone Natalie Cavazos MD Primary Care Provider Reason for Visit * Reason Onset Date Comments Med Refill 06/02/2022 Encounter Details Date Type Department Care Team ([facility] Contact Info) Description 06/02/2022 Telephone [facility] MEDICINE [address] [place] [address] Natalie Cavazos MD [address] [place] [address] Med Refill Social History Tobacco Use Types Packs/Day Years Used Date Smoking Tobacco: Every Day Cigarettes 0.8 14 Cigars Smokeless Tobacco: Former Alcohol Answer Date Recorded How often do you have a drink containing alcohol ? 0 01/30/2022 How many drinks containing a lcohol do you have on a typical day when you are drinking? 0 01/30/2022 How often do you have six or more drinks on one occasion? 0 01/30/2022 Comments Unknown Sex and Gender Information Value [...] suspected to have Coronavirus/COVID-19? No / Unsure 05/14/2022 11:01 AM EDT documented as of this encounter Miscellaneous Notes * Telephone Encounter - Boris Zayas - 06/02/2022 2:29 PM EDT Tc from pt requesting med refill Oxycodone 10 mg documented in this encounter Plan of Treatment Upcoming Encounters Date Type Department Care Team (Late st Contact Info) Description 08/31/2024 2:30 PM EDT Clinical Support [facility] MED & PEDS [address] [place] [address] Erinn Hernández RN [address] [place] [address] 09/07/2024 2:30 PM EDT Office Visit [facility] MED & PEDS [address] [place] [address] Natalie Cavazos MD [address] [place] [address] documented as of this encounter Visit Diagnoses Not on filedocumented in this encounter Additional Health Concerns Assessment Noted Time PHQ-9 Depression Total Score: 16 023 3:14 PM EST documented as of this encounter Care Teams Diesel Engineer Relationship Specialty Start Date End Date Natalie Cavazos MD [address] [place] [address] PCP - General Internal Medicine 02/15/18 documented as of this encounter
--- OUTSIDE RECORDS SUMMARY | 2024-07-03 13:54 | XMS_ITS | Encounter Summary ---
Author Organization [employer] Address 75 [facility] 7 [place] [address] Care Team Providers Care Glass Technician/Installer Name Role Phone Natalie Cavazos MD Primary Care Provider [phone] Encounter Details Date Type Department Care Team ([facility] Contact Info) Description 05/24/2024 Orders Only [facility] [address] [place] [address] Provider, MD Nori Social History Tobacco Use Types Packs/Day Years [...] 2:30 PM EDT Clinical Support [facility] MED & PEDS [address] [place] [address] Erinn Hernández RN [address] [place] [address] 09/07/2024 2:30 PM EDT Office Visit [facility] MED & PEDS [address] [place] [address] Natalie Cavazos MD [address] [place] [address] documented as of this encounter Procedures Procedure Name Priority Date/Time Associated Diagnosis Comments XR SHOULDER 2 OR MORE VIEWS RIGHT Routine 05/24/2024 3:46 PM EDT documented in this encounter Results * XR SHOULDER 2 OR MORE VIEWS RIGHT (05/24/2024 3:46 PM EDT) Anatomical Region Laterality Modality Radiographic Maile ging us Historical Provider MD XIE XR PROCEDURES Final R esult documented in this encounter Visit Diagnoses Not on filedocumented in this encounter Additional Health Concerns Assessment Noted Time PHQ-9 Depression Total Score: 11 024 2:03 PM EDT documented as of this encounter Care Teams Glass Technician/Installer Relationship Specialty Start Date End Date Natalie Cavazos MD [address] [place] [address] PCP - General Internal Medicine 02/15/18 documented as of this encounter
--- OUTSIDE RECORDS SUMMARY | 2024-07-03 13:54 | XMS_ITS | Encounter Summary ---
Author Organization [employer] Address [address] [place] [address] 7 [place] [address] Care Team Providers Care Steerer Name Role Phone Natalie Cavazos MD Primary Care Provider Encounter Details Date Type Department Care Team ([facility] Contact Info) Description 08/24/2022 Abstract [facility] PEDS [address] [place], [place] [phone] Natalie Cavazos MD [address] [place] [address] Social History Tobacco Use Types Packs/Day Years [...] [facility] [address] [place] [address] Erinn Hernández, MIKAYLA 505 [place] [address] 09/07/2024 2:30 PM EDT Office Visit [facility] MED & PEDS [address] [place] [address] Natalie Cavazos MD [address] [place] [address] documented as of this encounter Visit Diagnoses Not on filedocumented in this encounter Additional Health Concerns Assessment Noted Time PHQ-9 Depression Total Score: 22 023 3:00 PM EDT documented as of this encounter Care Teams Steerer Relationship Specialty Start Date End Date Natalie Cavazos MD [address] [place] [address] PCP - General Internal Medicine 02/15/18 documented as of this encounter
--- OUTSIDE RECORDS SUMMARY | 2024-07-03 13:54 | XMS_ITS | Encounter Summary ---
Author Organization [employer] Address [address] [address] Care Team Providers Care Room Service Runner Name Role Phone Natalie Cavazos MD Primary Care Provider [phone] Reason for Visit * Reason Comments Med Refill Encounter Details Date Type Department Care Team ([facility] st Contact Info) Description 08/06/2023 Refill [facility] MEDICINE [address] [place] [address] Natalie Cavazos MD [address] [place] [address] Chronic pain syndrome Social History Tobacco Use [...] [facility] [address] [place] [address] Erinn Hernández RN [address] [place] [address] 09/07/2024 2:30 PM EDT Office Visit [facility] MED & PEDS [address] [place] [address] Natalie Cavazos MD [address] [place] [address] documented as of this encounter Visit Diagnoses Diagnosis Chronic pain syndrome documented in this encounter Additional Health Concerns Assessment Noted Time PHQ-9 Depression Total Score: 22 023 3:00 PM EDT documented as of this encounter Care Teams Room Service Runner Relationship Specialty Start Date End Date Natalie Cavazos MD [address] [place] [address] PCP - General Internal Medicine 02/15/18 documented as of this encounter
--- OUTSIDE RECORDS SUMMARY | 2024-07-03 13:54 | XMS_ITS | Encounter Summary ---
Author Organization [employer] Address [address] [address] Care Team Providers Care Planning Technician Name Role Phone Natalie Cavazos MD Primary Care Provider Reason for Visit * Reason Onset Date Comments Med Refill 12/20/2023 Encounter Details Date Type Department Care Team ([facility] Contact Info) Description 12/20/2023 Telephone [facility] MEDICINE [address] [place] [address] Natalie Cavazos MD [address] [place] [address] Med Refill Social History Tobacco Use Types [...] * Telephone Encounter - Ced Mike - 12/20/2023 8:44 AM EST TC from pt requesting medication refill. Medications needing refill: oxyCODONE (Roxicodone) 5 MG immediate release tablet To be sent to: [facility] - [place], [place] - [address] [place] [address] documented in this encounter Plan of Treatment Upcoming Encounters Date Type Department Care Team (Late st Contact Info) Description 08/31/2024 2:30 PM EDT Clinical Support [facility] MED & PEDS [address] [place] [address] Erinn Hernández RN 505 [place] [address] 09/07/2024 2:30 PM EDT Office Visit [facility] MED & PEDS [address] [place] [address] Natalie Cavazos MD [address] [place] [address] documented as of this encounter Visit Diagnoses Not on filedocumented in this encounter Additional Health Concerns Assessment Noted Time PHQ-9 Depression Total Score: 11 024 2:03 PM EDT documented as of this encounter Care Teams Planning Technician Relationship Specialty Start Date End Date Natalie Cavazos MD [address] [place] [address] CHASE Bowman [address] PCP - General Internal Medicine 02/15/18 documented as of this encounter
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
--- NOTE | 2024-07-03 13:59 | A.OFFVIS_ITS ---
Intake Visit Reasons: 6m/us (rescheduled from jan no show) Intake Note: Pt presents to the office today for a 6 month follow up/US PVR:0ml Allergies duloxetine [From CYMBALTA] Allergy (Severe, Verified 07/03/24 14:39) SEVERE DIARRHEA/DEHYDRATION tramadol [TRAMADOL] Allergy (Severe, Verified 07/03/24 14:39) SEVERE DIARRHEA/DEHYDRATION pollen Allergy (Unknown, Uncoded 07/03/24 14:39) unknown Medication List - Last Reconciled 07/03/24 by TAY Carrillo cholecalciferol (vitamin D3) 25 mcg PO DAILY cyclobenzaprine 10 mg PO BEDTIME dicyclomine 20 mg PO QID PRN docusate sodium 100 mg PO DAILY 30 days fesoterodine ER (Toviaz) 8 mg PO DAILY fexofenadine (Melody Allergy) 180 mg PO DAILY lancets (TRUEplus Lancets) As directed lidocaine 5% (Lidoderm) 0 patches topical loratadine 10 mg PO DAILY naloxone 4 mg/actuation (Narcan) 0 sprays intranasal nicotine 1 patch topical QAM omeprazole 20 mg PO DAILY oxycodone 5 - 10 mg PO Q6H PRN pregabalin (Lyrica) 300 mg PO BID pyridoxine (vitamin B6) 100 mg PO DAILY 90 days HPI Comments Details: Madison is a pleasant 54 year old female patient of Dr. Frye. She has a past medical history of nephrolithiasis, overactive bladder, H pylori, spinal stone or a cysts, and fibromyalgia. She presents to the office today for follow-up of her overactive bladder and nephrolithiasis. In discussion with the patient today she reports no bothersome urinary issues. She reports compliance with Toviaz as prescribed and is requesting a refill. She discusses how helpful this has been in treating her lower urinary tract symptoms of urinary urgency and frequency. Most recent renal imaging results were reviewed with the patient today 09/07 bilateral kidneys are normal in size, contour, and echogenicity. No hydronephrosis or lesions noted bilaterally. Echogenic focus likely nonobstructing stone 2 mm in the right kidney. No ultrasound evidence of renal obstruction or hydronephrosis. She reports having had a more recent ultrasound through [facility] as she has a longstanding history of chronic back pain and has had a previous spinal fusion. She brings with her today they report that notes kidneys with no calculi or hydronephrosis however bilateral Bosniak 2 class cysts per radiology report. We discussed potential causes of renal cysts as well as nephrolithiasis. We discussed importance of adequate hydration relation to her history of lower urinary tract symptoms as well as nephrolithiasis. She discusses her ongoing issues with her left hip and is due to undergo cortisone injections. She otherwise denies urinary urgency, urinary frequency, incontinence, nocturia, hematuria, dysuria, foul smelling urine, changes to urinary stream, fever, and or chills. She is happy with her current voiding parameters. In office urinalysis results reviewed with the patient today. Microscopic hematuria noted. When asked she does report a longstanding history of nicotine dependence. She reports smoking approximately 10 cigarettes per day. We discussed potential causes of microscopic hematuria. I discussed reasons for blood in the urine may include but are not limited to kidney stones, cancer in the urinary tract, kidney stone disease or inflammatory conditions of the urinary tract. I have discussed workup to include cystoscopy evaluation. PREVIOUS OFFICE NOTE: Nephrolithiasis Initial presentation April through emergency room Imaging - 05/06 CT scan 2 mm stone on left, 3 mm stone on right with small stone in bladder - 10/06 renal ultrasound no evidence of stones - 11/07 renal ultrasound possible 2 mm right Several prior procedures for nephrolithiasis ? PFSH Medical History Renal calculi Urinary incontinence H. pylori infection Epigastric pain Spinal stenosis, cervical region Fibromyalgia Surgical History Hx of shoulder surgery Hx of neck surgery History of esophagogastroduodenoscopy (EGD) Hx of colonoscopy History of right knee surgery History of spinal fusion Family History Mother Diabetes Family history of cancer Sister HTN (hypertension) Diabetes Maternal Grandmother Heart problem Father Medical history unknown Social History Household Members: None Alcohol intake: current Alcohol intake frequency: does not drink Cigarettes Per Day: 10 Substance Use Type: Marijuana Current occupational status: unemployed Current occupation: rt handed Review of Systems Const All systems reviewed & are unremarkable except as noted in HPI and below Physical Exam Const General: cooperative, healthy appearing, comfortable, no acute distress, well developed, alert and awake Orientation/consciousness: patient oriented x3 Limitations: no limitations HEENT Head: Yes normal to inspection, Yes normocephalic and Yes atraumatic Ears: hearing grossly normal bilaterally Eyes General: appearance normal, both eyes and all related structures Neck Neck: Yes normal visual inspection and Yes trachea midline Chest Chest palpation & inspection: normal inspection of the chest Resp Effort & Inspection: normal respiratory effort and able to speak in complete sentences Cardio Rate: regular rate GI Inspection: Yes normal to inspection General: Yes no CVA tenderness Back/Spine/Pelvis Back: no CVA tenderness Skin General skin exam: no rashes or lesions noted Neuro General: patient oriented x3 Extrem General: Yes normal to inspection Psych Appearance: grossly normal and well kempt Mental Status: mental status grossly normal Speech and movement: Normal speech and movement present and Clear speech present Affect: normal affect Attitude: cooperative Thought process: Normal thought process present Thought content: Normal thought content present Insight: Fair insight present (Psych) Judgement: Fair judgement present (Psych) Office Procedures Post Void Residual Post Residual Void Post Void Residual (PVR): 0 [id number] Void Residual by ultrasound Results AMB Urinalysis, Automated UA Leukoctes 15 Harris/uL Last Edit by Corinne Pitt CMA on 07/03/24 14:10 UA Nitrite Negative Last Edit by Corinne Pitt CMA on 07/03/24 14:10 UA Urobilinogen 0.2 mg/dL Last Edit by Corinne Pitt CMA on 07/03/24 14:10 UA Protein 15 mg/dL Last Edit by Corinne Pitt CMA on 07/03/24 14:10 UA pH 6.0 Last Edit by Corinne Pitt CMA on 07/03/24 14:10 UA Blood 10 Julio Cesar/uL Last Edit by Corinne Pitt CMA on 07/03/24 14:10 UA Specific [place] 1.020 Last Edit by Corinne Pitt CMA on 07/03/24 14:10 UA Ketone Positive Last Edit by Corinne Pitt CMA on 07/03/24 14:10 UA Bilirubin 1 mg/dL Last Edit by Corinne Pitt CMA on 07/03/24 14:10 UA Glucose 0 mg/dL Last Edit by Corinne Pitt CMA on 07/03/24 14:10 Results Reviewed Results Reviewed: Laboratory Last Values Urine pH (Auto) 6.0 07/03/24 14:08 Specific [place] (Auto) 1.020 07/03/24 14:08 Urine Protein (Auto) 15 mg/dL 07/03/24 14:08 Glucose (UA)(Auto) 0 mg/dL 07/03/24 14:08 Urine Ketones (Auto) Positive 07/03/24 14:08 Urine Blood (Auto) 10 Julio Cesar/uL 07/03/24 14:08 Urine Nitrite (Auto) Negative 07/03/24 14:08 Urine Bilirubin (Auto) 1 mg/dL 07/03/24 14:08 Urine Urobilinogen (Auto) 0.2 mg/dL 07/03/24 14:08 Leukocyte Esterase (Auto) 15 Harris/uL 07/03/24 14:08 Date of Service: 09/09/23 Procedure(s): US renal BI FINDINGS: RIGHT KIDNEY: 12.0 x 3.8 x 4.1 cm (SAG x AP x TRV). The kidney is normal in size, contour, and echogenicity. Renal cortical thickness is normal. No calculi or focal parenchymal lesions. No hydronephrosis. Echogenic focus likely nonobstructing stone to millimeter. LEFT KIDNEY: 10.5 x 4.8 x 3.7 cm (SAG x AP x TRV). The kidney is normal in size, contour, and echogenicity. Renal cortical thickness is normal. No calculi or focal parenchymal lesions. No hydronephrosis. IMPRESSION: 1. Echogenic focus in the right kidney likely a nonobstructing stone. 2. No ultrasound evidence of renal obstruction or hydronephrosis. Assessment & Plan Assessment & Plan (1) Renal calculi: Code(s): N20.0 - Calculus of kidney Category: Medical (2) Overactive bladder: Code(s): N32.81 - Overactive bladder Category: Medical (3) Microscopic hematuria: Code(s): R31.29 - Other microscopic hematuria Category: Medical (4) Nicotine dependence: Code(s): F17.200 - Nicotine dependence, unspecified, uncomplicated Category: Medical Plan In office urinalysis results reviewed with the patient today; as noted above; will send for urine cytology. Most recent renal ultrasound results reviewed with the patient today; as noted above. We discussed potential causes of nephrolithiasis, renal cysts, and microscopic hematuria We discussed importance of limiting/quitting nicotine dependence for overall health and well-being. We discussed further workup of microscopic hematuria to include CT urogram as well as cystoscopy; versus surveillance monitoring; risks and benefits of these interventions were discussed. She reports be happy with current voiding parameters on Toviaz Continue Toviaz; refill provided. Continue vitamin B6 Continue adding 1 oz of lemon juice to water daily Discussed, educated, and stressed the importance of adequate hydration relation to lower urinary tract symptoms and nephrolithiasis. Will continue with surveillance monitoring. Will obtain retroperitoneal ultrasound in 6 months. Follow-up in 6 months with imaging to be completed prior; or sooner with any issues, concerns, and or questions. Orders: Orders AMB Post Void Residual by ultrasound Today N32.81 - Overactive bladder Urine Cytology Today R31.29 - Other microscopic hematuria AMB Urinalysis Automated Today R32 - Unspecified urinary incontinence US retroperitoneal comp 6 Months N20.0 - Calculus of kidney, N32.81 - Overactive bladder, R31.29 - Other microscopic hematuria Medications: Refilled fesoterodine ER (Toviaz) 8 mg PO DAILY 90 tabs 2RF N20.0 - Calculus of kidney Patient Instructions: The patient had an opportunity to ask questions regarding the treatment plan. All questions were answered. Physical exam, labs, and imaging were discussed and reviewed in detail. As well as risks, benefits, and discussion of treatment choices. No major barriers to understanding were identified. The patient expressed understanding and agreement with the above treatment plan. The patient was made aware they should contact our office by phone for worsening of their current condition, the appearance of new symptoms, or with any questions or concerns. Compliance is encouraged with any medications and follow up testing that is ordered. It is a privilege to be allowed the opportunity to participate in? your urological care.? Again, if you have any questions or concerns If you have any questions or concerns please do not hesitate to contact me. The office is [phone]. This note is constructed using voice recognition software. While every effort has been made to ensure accuracy mill labor supervisor errors may have been included. Yours sincerely, LALITHA Carrillo Coding Level of Care Code Est Pt Level 3 (70976) Complex EM visit Add On G2211 Diagnoses Renal calculi N20.0 Overactive bladder N32.81 Microscopic hematuria R31.29 Nicotine dependence F17.200 CPT Codes Post Residual Void - PVR CPT Code: 74880-[id number] Void Residual by ultrasound ([id number])
== END 2024-07-03 14:41 | disposition home or self-care (01) ==
LOC: HO.HUSH 13:50
PROVIDERS: PCP Internal Medicine; Visit Provider Nurse Practitioner Family
DX: N20.0 Calculus of kidney (principal); N32.81 Overactive bladder; R31.29 Other microscopic hematuria; F17.200 Nicotine dependence, unspecified, uncomplicated; R32 Unspecified urinary incontinence
CPT/HCPCS: 99213

== ENCOUNTER → 2024-07-03 13:50 | Outpatient (BNVA) | payer MEDICAID, SELFPAY | PROVIDERS: PCP Internal Medicine; Visit Provider Nurse Practitioner Family | DX: N20.0 Calculus of kidney (principal); N32.81 Overactive bladder; R31.29 Other microscopic hematuria; F17.210 Nicotine dependence, cigarettes, uncomplicated | CPT/HCPCS: 51798; 81003; 99212 ==

== ENCOUNTER 2024-09-25 18:56 | Emergency (ER) | payer MEDICAID, SELFPAY ==
--- NOTE | ~2024-09-25 | XR_ITS ---
CLINICAL HISTORY: pain radiating down L leg 3 views lumbar spine Comparison: None provided Findings: Dextroscoliosis. No acute fracture. Osteopenia. Multilevel spondylosis with diffuse osteophytosis, facet arthropathy and degenerative disc disease. Intervertebral foraminal narrowing throughout pronounced at L5-S1. Interbody disc spacer at L5-S1. IMPRESSION: Chronic changes without acute findings. This document has been electronically signed by: Alex Ashley MD on 09/25/2024 20:11:39
[2024-09-25 19:15] VITALS: BP 125/60; PULSE 69; RESP 22; TEMP 36.4; O2SAT 95; BMI 26.6
--- NOTE | 2024-09-25 19:15 | ED.GENADULT ---
HPI - General Adult General Chief complaint: Extremity Problem Stated complaint: hip leg, lower back pain Related Data Home Medications ?Medication ?Instructions ?Recorded ?Confirmed fexofenadine 180 mg tablet 180 mg PO DAILY 02/28/20 08/10/23 (Melody Allergy) pregabalin 300 mg capsule (Lyrica) 300 mg PO BID 02/28/20 08/10/23 cyclobenzaprine 10 mg tablet 10 mg PO BEDTIME 12/25/20 08/10/23 lancets 33 gauge (TRUEplus Lancets) #100 ea 04/28/21 08/10/23 lidocaine 5 % topical patch 0 patch topical 04/28/21 08/10/23 (Lidoderm) loratadine 10 mg tablet 10 mg PO DAILY 04/28/21 08/10/23 naloxone 4 mg/actuation nasal 0 spray intranasal 07/21/21 08/10/23 spray (Narcan) cholecalciferol (vitamin D3) 25 25 mcg PO DAILY 09/01/23 mcg (1,000 unit) tablet nicotine 14 mg/24 hr daily 1 patch topical QAM 09/01/23 transdermal patch oxycodone 5 mg tablet 5 - 10 mg PO Q6H PRN severe pain 09/01/23 Previous Rx's ?Medication ?Instructions ?Recorded pyridoxine (vitamin B6) 100 mg 100 mg PO DAILY 90 days #90 tabs 10/15/22 tablet docusate sodium 100 mg capsule 100 mg PO DAILY 30 days #30 caps 09/01/23 dicyclomine 20 mg tablet 20 mg PO QID PRN for abdominal 11/02/23 pain #120 tabs omeprazole 20 mg capsule,delayed 20 mg PO DAILY #90 caps 04/13/24 release fesoterodine 8 mg tablet,extended 8 mg PO DAILY #90 tabs 07/03/24 release 24 hr (Toviaz) Allergies Allergy/AdvReac Type Severity Reaction Status Date / Time duloxetine (From CYMBALTA) Allergy Severe SEVERE Verified 09/25/24 19:18 DIARRHEA/DEHYDRATION tramadol (TRAMADOL) Allergy Severe SEVERE Verified 09/25/24 19:18 DIARRHEA/DEHYDRATION pollen Allergy Unknown unknown Uncoded 09/25/24 19:18 [facility] Past Medical History Medical History Renal calculi Urinary incontinence H. pylori infection Epigastric pain Spinal stenosis, cervical region Fibromyalgia Surgical History Hx of shoulder surgery Hx of neck surgery History of esophagogastroduodenoscopy (EGD) Hx of colonoscopy History of right knee surgery History of spinal fusion Family History Family History Mother Diabetes Family history of cancer Sister HTN (hypertension) Diabetes Maternal Grandmother Heart problem Father Medical history unknown Social History Social History Household Members: None Alcohol intake: current Alcohol intake frequency: does not drink Cigarettes Per Day: 10 Substance Use Type: Marijuana Advance Directives: No Advance Directives Information Provided: No Current occupational status: unemployed Current occupation: rt handed Physical Exam ED Vital Signs: BMI result Body Mass Index 26.6 Course Course Course Narrative: This is a rapid medical exam performed by Juancho Jeffery NP: Additional HPI, ROS, PE not included below will be deferred to primary provider. Patient is a 54-year-old female with history of fibromyalgia presenting with complaint of 6 days of left lower back and hip pain, radiates all the way to feet. Recently had injection with ortho, no improvement. Plan: xray Patient left the emergency department before myself or any of the other clinicians could review or explain physical exam findings, test results, need or lack there of for additional testing, treatment options, or a treatment plan. Discharge Plan Discharge Clinical Impression: Low back pain Patient Disposition: Left W/O Completing Treatment Prescriptions: No Action pyridoxine (vitamin B6) 100 mg tablet 100 mg PO DAILY 90 Days Qty: 90 0RF dicyclomine 20 mg tablet 20 mg PO QID PRN (Reason: for abdominal pain) Qty: 120 1RF omeprazole 20 mg capsule,delayed release(DR/EC) 20 mg PO DAILY Qty: 90 2RF pregabalin [Lyrica] 300 mg capsule 300 mg PO BID fexofenadine [Melody Allergy] 180 mg tablet 180 mg PO DAILY naloxone [Narcan] 4 mg/actuation spray,non-aerosol 0 spray intranasal cyclobenzaprine 10 mg tablet 10 mg PO BEDTIME (DME) lancets [TRUEplus Lancets] 33 gauge misc See Rx Instructions Not Applicable DAILY Qty: 100 Rx Instructions: As directed loratadine 10 mg tablet 10 mg PO DAILY lidocaine [Lidoderm] 5 % adhesive patch,medicated 0 patch topical fesoterodine [Toviaz] 8 mg tablet extended release 24 hr 8 mg PO DAILY Qty: 90 2RF oxycodone 5 mg tablet 5 - 10 mg PO Q6H PRN (Reason: severe pain) cholecalciferol (vitamin D3) 25 mcg (1,000 unit) tablet 25 mcg PO DAILY nicotine 14 mg/24 hr patch 24 hour 1 patch topical QAM docusate sodium 100 mg capsule 100 mg PO DAILY 30 Days Qty: 30 6RF Discharge Date/Time: 09/25/24 20:26
--- OUTSIDE RECORDS SUMMARY | 2024-09-25 20:33 | XMS_ITS | Clinical Summary ---
Author Organization [facility] Address [address] [place] [address] Care Team Providers Care Hog Stomach Preparer Name Role Phone Natalie Cavazos MD Primary Care Provider [phone] Social History Tobacco Use Types Packs/Day Years [...] (1 of 2) 2018 Influenza Vaccine (#1) 2024 Pneumococcal Vaccine Aged Out No long er eligible based on patient's age to complete this topic RSV Ped < 20 months Aged Out No longe r eligible based on patient's age to complete this topic Care Teams Hog Stomach Preparer Relationship Specialty Start Date End Date Natalie Cavazos MD [address] [place] [address] PCP - General Internal Medicine 03/22/20
--- OUTSIDE RECORDS SUMMARY | 2024-09-25 20:33 | XMS_ITS | Clinical Summary ---
Author Organization [facility] Address [address] [place] [address] Phone Care Team Providers Care Vp Of Marketing Name Role Phone Natalie Cavazos MD Primary Care Provider [phone] Allergies Active Allergy Reactions Criticality Noted Date Comments Duloxetine 09/02/2020 Cymbalta [Duloxetine-fd&c Blue #2] Pollen Extracts 11/24/2023 Tramadol 09/02/2020 Medications UNABLE TO FIND Nutritional Supplements (VITAMIN D BOOSTER OR) Take by mouth. Active omeprazole (PriLOSEC) [address] [...] 07/14/2022 DDD (degenerative disc disease), cervical 2021 Surgical History Surgery Date Site/Laterality Comments KNEE [...] 01/21/2024 2:24 PM EST Plan of Treatment Health Maintenance Due Date [...] season) 2023 01/21/2023, 05/09/2021, 05/27/2020 Depression Screening 02/16/2024 Influenza Vaccine (#1) 2024 , 11/11/2021, 10/19/2020, Additional history exists DTaP,Tdap,and Td [...] Procedure Name Priority Date/Time Associated Diagnosis Comments PAP SMEAR Routine 07/22/2011 from Last 3 Months or Most Recently Relevant to Health Maintenance Results * Pap Smear (07/22/2011) Pap smear No Interpretation , Abstracted Historical Provider MD HEALTH MAINTENANCE Final Result from Last 3 Months or Most Recently Relevant to Health Maintenance Insurance MEDICAID - [place] Care Teams Vp Of Marketing Relationship Specialty Start Date End Date Natalie Cavazos MD [address] [place] [address] PCP - General Internal Medicine 08/27/20
== END 2024-09-25 20:26 | disposition left against medical advice (07) ==
PROVIDERS: Emergency Provider Emergency Medicine
DX: M54.50 Low back pain, unspecified (principal); Z53.21 Procedure and treatment not carried out due to patient leaving prior to being seen by health care provider
CPT/HCPCS: 72100; 99281; 99283

== ENCOUNTER → 2024-09-25 19:17 | Outpatient (BNV) | payer MEDICAID, SELFPAY | PROVIDERS: Emergency Provider Emergency Medicine; Visit Provider Radiology Diagnostic Radiology | DX: M54.32 Sciatica, left side (principal) | CPT/HCPCS: 72100 ==

== ENCOUNTER 2024-10-22 18:22 | Outpatient (REF) | payer MEDICAID, SELFPAY ==
--- NOTE | ~2024-10-22 | MR_ITS ---
CLINICAL HISTORY: Radiculopathy MR lumbar spine without gadolinium Comparison: CR - XR LUMBAR SPINE 2-3V - 09/25/24 19:31 EDT Findings: Minimal convex right mid lumbar curvature as seen on the patient's prior radiographs. Dual anterior interbody fusion devices are again seen at the L5-S1 disc level. These generate mild metal artifact as expected. Generalized straightening of the normal lumbar lordosis on the sagittal images. No acute fracture. Multilevel mixed Modic type 1 and Modic type 2 endplate changes are seen throughout the lumbar spine, most pronounced at L1-2 and L2-3. The conus terminates at L1. No abnormal signal intensity identified within the conus medullaris. Mild prominence of the right renal pelvis. Segmental analysis: L1-2: Posterior osteophytic ridging with broad-based disc bulge and mild facet joint degenerative change. Central canal and neural foramina are patent. L2-3: Disc height loss with disc desiccation. Broad-based disc osteophyte complex is asymmetric to the left extending into the left neural foramen. Moderate facet joint degenerative change. This combination results in borderline narrowing of the left lateral recess with cijo-to-dmxvnyxn narrowing of the left neural foramina. L3-4: Disc height loss and disc desiccation and posterior osteophytic ridging. Zcoe-ng-uxhefwou facet joint degenerative change. Mild narrowing of the right lateral recess. Mild bilateral neural foraminal narrowing. L4-5: Disc height loss with disc desiccation and broad-based disc bulge, asymmetric to the left. Niyh-qc-ztrtcmkj facet joint degenerative change. Central canal is patent. Mild right-sided and inag-jb-wsyntaxb left-sided neural foraminal narrowing. L5-S1:Posterior osteophytic ridging. Moderate facet joint degenerative change. Central canal is patent. Neural foramina are patent. IMPRESSION: Multilevel degenerative change as discussed above. No acute finding. This document has been electronically signed by: Alex Wade MD on 10/24/2024 09:43:56
--- OUTSIDE RECORDS SUMMARY | 2024-10-22 18:25 | XMS_ITS | Encounter Summary ---
Author Organization [facility] Address [address] [address] Care Team Providers Care Geriatric Social Work Professor Name Role Phone Natalie Cavazos MD Primary Care Provider [phone] Reason for Visit * Reason Comments Med Refill Encounter Details Date Type Department Care Team ([facility] st Contact Info) Description 08/06/2023 Refill [facility] [address] [place] [address] Natalie Cavazos MD [address] [place] [address] Chronic pain syndrome Social History Tobacco Use [...] Care Team (Late st Contact Info) Description 11/14/2024 1:30 PM EDT Clinical Support [facility] [address] [place] [address] Erinn Hernández, MIKAYLA [address] [place] [address] documented as of this encounter Visit Diagnoses Diagnosis Chronic pain syndrome documented in this encounter Additional Health Concerns Assessment Noted Time PHQ-9 Depression Total Score: 22 023 3:00 PM EDT documented as of this encounter Care Teams Geriatric Social Work Professor Relationship Specialty Start Date End Date Natalie Cavazos MD [address] [place] [address] PCP - General Internal Medicine 02/15/18 documented as of this encounter
--- OUTSIDE RECORDS SUMMARY | 2024-10-22 18:25 | XMS_ITS | Encounter Summary ---
Author Organization [facility] [employer] [facility] Address [address] [facility] [address] [place] [address] Care Team Providers Care Marketing Services Rep Name Role Phone Natalie Cavazos MD Primary Care Provider [phone] Encounter Details Date Type Department Care Team ([facility] Contact Info) Description 09/25/2024 Orders Only [facility] [address] [place], [place] [id number] Natalie Cavazos MD [address] [place] [address] Chronic pain syndrome Social History Tobacco Use [...] Answer Date Recorded Patient Health Questionnaire-9 Score 4 09/29/2024 Patient Health Questionnaire-9 Score 4 09/29/2024 Last PHQ-9: Questionnaire Data Not on file 0 09/29/2024 Housing Stability Answer Date Recorded What is [...] Answer Date Recorded Patient Health Questionnaire-2 Score 2 09/29/2024 Internet Access Answer Date Recorded Internet Access [...] Upcoming Encounters Date Type Department Care Team ([facility] st Contact Info) Description 11/14/2024 1:30 PM EDT Clinical Support [facility] [address] [place] [address] Erinn Hernández, MIKAYLA [address] [place] [address] documented as of this encounter Visit Diagnoses Diagnosis Chronic pain syndrome documented in this encounter Additional Health Concerns Assessment Noted Time PHQ-9 Depression Total Score: 11 024 2:03 PM EDT documented as of this encounter Care Teams Marketing Services Rep Relationship Specialty Start Date End Date Natalie Cavazos MD [address] [place] [address] PCP - General Internal Medicine 02/15/18 documented as of this encounter
--- OUTSIDE RECORDS SUMMARY | 2024-10-22 18:25 | XMS_ITS | Encounter Summary ---
Author Organization [employer] Address [address] [address] Care Team Providers Care Pediatrics Hospitalist Name Role Phone Natalie Cavazos MD Primary Care Provider [phone] Reason for Visit * Reason Onset Date Comments Med Refill 07/27/2024 Encounter Details Date Type Department Care Team ([facility] Contact Info) Description 07/27/2024 Telephone [facility] 505 [place] [address] Natalie Cavazos MD 505 [place] [address] Med Refill Social History Tobacco Use Types [...] AM EDT documented as of this encounter Functional Status * Over the past 2 weeks, how often have you been bothered by any of the following problems? Question Answer Date of Assessment Author Patient Health Questionnaire-2 Score 2 09/15 2:27 PM EDT Alexandru Cherry MA * Little interest or pleasure in doing things Answer Date of Assessment Author Several days 09/29/2024 2:27 PM EDT Alexandru Cherry MA * Feeling down, depressed, or hopeless Answer Date of Assessment Author Several days 09/29/2024 2:27 PM EDT Alexandru Cherry MA * Trouble falling or staying asleep, or sleeping too much Answer Date of Assessment Author Several days 09/29/2024 2:27 PM EDT Alexandru Cherry MA * Feeling tired or having little energy Answer Date of Assessment Author Several days 09/29/2024 2:27 PM EDT Alexandru Cherry MA * Poor appetite or overeating Answer Date of Assessment Author Not at all 09/29/2024 2:27 PM EDT Alexandru Cherry MA * Feeling bad about yourself - or that you are a failure or have let yourself or your family down Answer Date of Assessment Author Not at all 09/29/2024 2:27 PM EDT Alexandru Cherry MA * Trouble concentrating on things, such as reading the newspaper or watching television Answer Date of Assessment Author Not at all 09/29/2024 2:27 PM EDT Alexandru Cherry MA * Moving or speaking so slowly that other people could have noticed? Or the opposite - being so fidgety or restless that you have been moving around a lot more than usual. Answer Date of Assessment Author Not at all 09/29/2024 2:27 PM EDT Alexandru Cherry MA * Thoughts that you would be better off or hurting yourself in some way Answer Date of Assessment Author Not at all 09/29/2024 2:27 PM EDT Alexandru Cherry MA * Patient Health Questionnaire-9 Score Answer Date of Assessment Author 4 09/29/2024 2:27 PM EDT Alexandru Cherry MA * How difficult have these problems made it for you to do your work, take care of things at home, or get along with other people? Answer Date of Assessment Author Not difficult at all 09/29/2024 2:27 PM EDT Alexandru Allen MA documented as of this encounter Miscellaneous Notes * Telephone Encounter - Ольга Schaffer - 07/27/2024 11:21 AM EDT TC from pt requesting medication refill. Medications needing refill : oxyCODONE (Roxicodone) 5 MG immediate release tablet To be sent to: [facility] - [place] - [address] documented in this encounter Plan of Treatment Upcoming Encounters Date Type Department Care Team (Late st Contact Info) Description 11/14/2024 1:30 PM EDT Clinical Support [facility] 505 [facility] [place] [facility] [place] [address] Erinn Hernández, RN 505 [place] [address] documented as of this encounter Visit Diagnoses Not on filedocumented in this encounter Additional Health Concerns Assessment Noted Time PHQ-9 Depression Total Score: 11 024 2:03 PM EDT documented as of this encounter Care Teams Pediatrics Hospitalist Relationship Specialty Start Date End Date Natalie Cavazos MD 505 [place] [address] PCP - General Internal Medicine 02/15/18 documented as of this encounter
--- OUTSIDE RECORDS SUMMARY | 2024-10-22 18:25 | XMS_ITS | Encounter Summary ---
Author Organization [employer] Address [address] [address] Care Team Providers Care Folding Machine Setter Name Role Phone Natalie Cavazos MD Primary Care Provider Reason for Visit * Reason Onset Date Comments Med Refill 08/11/2024 Encounter Details Date Type Department Care Team ([facility] Contact Info) Description 08/11/2024 Telephone [facility] MEDICINE 230 [place] [address] Natalie Cavazos MD 505 [place] [address] Med Refill Social History Tobacco Use Types [...] encounter Miscellaneous Notes * Telephone Encounter - Yennifer Carrion - 08/11/2024 11:38 AM EDT TC from pt requesting medication refill. Medications needing refill : oxyCODONE (Roxicodone) 5 MG immediate release tablet To be sent to: [facility] [place] - 230 [facility] documented in this encounter Plan of Treatment Upcoming Encounters Date Type Department Care Team ([facility] st Contact Info) Description 11/14/2024 1:30 PM EDT Clinical Support [facility] MED & PEDS 505 [facility] [place] [address] Erinn Hernández, MIKAYLA [address] [facility] [place] [address] documented as of this encounter Visit Diagnoses Not on filedocumented in this encounter Additional Health Concerns Assessment Noted Time PHQ-9 Depression Total Score: 11 024 2:03 PM EDT documented as of this encounter Care Teams Folding Machine Setter Relationship Specialty Start Date End Date Natalie Cavazos MD 505 [place] [address] PCP - General Internal Medicine 02/15/18 documented as of this encounter
--- OUTSIDE RECORDS SUMMARY | 2024-10-22 18:25 | XMS_ITS | Encounter Summary ---
Author Organization [employer] Address [address] [address] Care Team Providers Care Television Installer Helper Name Role Phone Natalie Cavazos MD Primary Care Provider [phone] Reason for Visit * Reason Onset Date Comments Med Refill 09/22/2024 Encounter Details Date Type Department Care Team ([facility] Contact Info) Description 09/22/2024 Telephone [facility] MEDICINE 230 [place] [address] Natalie Cavazos MD 505 [place] [address] Med Refill Social History Tobacco Use Types [...] * Telephone Encounter - Annia Clarke - 09/25/2024 11:59 AM EDT Tc from Pt requesting to speak to SENIOR SOFTWARE ANALYST nurse. * Telephone Encounter - eLxie Pina RN - 09/22/2024 1:50 PM EDT Refill too soon. Pt last filled Oxy on 09/11/24 for 28 day supply. Not due until 10/09/24 * Telephone Encounter - Edilma Suarez - 09/22/2024 12:23 PM EDT TC from pt requesting medication refill. Medications needing refill : - oxyCODONE (Roxicodone) 5 MG immediate release tablet To be sent to: - [facility] - [place], [place] - [address] documented in this encounter Plan of Treatment Upcoming Encounters Date Type Department Care Team (Late st Contact Info) Description 11/14/2024 1:30 PM EDT Clinical Support [facility] MED & PEDS 505 [place] [address] Erinn Hernández, MIKAYLA 505 [place] [address] documented as of this encounter Visit Diagnoses Not on filedocumented in this encounter Additional Health Concerns Assessment Noted Time PHQ-9 Depression Total Score: 11 024 2:03 PM EDT documented as of this encounter Care Teams Television Installer Helper Relationship Specialty Start Date End Date Natalie Cavazos MD [address] [place] [address] PCP - General Internal Medicine 02/15/18 documented as of this encounter
--- OUTSIDE RECORDS SUMMARY | 2024-10-22 18:25 | XMS_ITS | Encounter Summary ---
Author Organization [employer] Address 75 [facility] [address] [place] [address] Care Team Providers Care Insole And Outsole Splitter Name Role Phone Natalie Cavazos MD Primary Care Provider [phone] Encounter Details Date Type Department Care Team ([facility] Contact Info) Description 08/30/2024 Orders Only [facility] 230 [place] [address] Provider, MD Nori Social History Tobacco Use [...] 11/14/2024 1:30 PM EDT Clinical Support [facility] MED & PEDS 505 [place] [address] Erinn Hernández RN 505 [place] [address] documented as of this encounter Procedures Procedure Name Priority Date/Time Associated Diagnosis Comments MAMMOGRAPHY Routine 08/29/2024 12:54 PM EDT documented in this encounter Results * Hm Mammography (08/29/2024 12:54 PM EDT) Anatomical Region Laterality Modality Other us Historical Provider HEALTH MAINTENANCE Final Result documented in this encounter Visit Diagnoses Not on filedocumented in this encounter Additional Health Concerns Assessment Noted Time PHQ-9 Depression Total Score: 11 024 2:03 PM EDT documented as of this encounter Care Teams Insole And Outsole Splitter Relationship Specialty Start Date End Date Natalie Cavazos MD 505 [place] [address] PCP - General Internal Medicine 02/15/18 documented as of this encounter
--- OUTSIDE RECORDS SUMMARY | 2024-10-22 18:25 | XMS_ITS | Clinical Summary ---
Author Organization [facility] Address [address] [place] [address] Care Team Providers Care Behavioral Health Care Manager Name Role Phone Natalie Cavazos MD Primary Care Provider [phone] Social History Tobacco Use Types Packs/Day Years [...] age to complete this topic Care Teams Behavioral Health Care Manager Relationship Specialty Start Date End Date Natalie Cavazos MD [address] [place] [address] PCP - General Internal Medicine 03/22/20
--- OUTSIDE RECORDS SUMMARY | 2024-10-22 18:25 | XMS_ITS | Encounter Summary ---
Author Organization [employer] Address [address] [address] Care Team Providers Care Creative Strategist Name Role Phone Natalie Cavazos MD Primary Care Provider [phone] Reason for Visit * Reason Onset Date Comments Med Refill 07/08/2023 Encounter Details Date Type Department Care Team ([facility] Contact Info) Description 07/08/2023 Telephone [facility] MEDICINE 230 [place] [address] Natalie Cavazos MD 505 [place] [address] Med Refill Social History Tobacco Use Types [...] immediate release tablet To be sent to: [facility] documented in this encounter Plan of Treatment Upcoming Encounters Date Type Department Care Team ([facility] st Contact Info) Description 11/14/2024 1:30 PM EDT Clinical Support [facility] MED & PEDS 505 [place] [address] Erinn Hernández RN 505 [place] [address] documented as of this encounter Visit Diagnoses Not on filedocumented in this encounter Additional Health Concerns Assessment Noted Time PHQ-9 Depression Total Score: 22 023 3:00 PM EDT documented as of this encounter Care Teams Creative Strategist Relationship Specialty Start Date End Date Natalie Cavazos MD 505 [place] [address] PCP - General Internal Medicine 02/15/18 documented as of this encounter
--- OUTSIDE RECORDS SUMMARY | 2024-10-22 18:25 | XMS_ITS | Encounter Summary ---
Author Organization [employer] Address [address] [address] Care Team Providers Care Patient Access Associate Name Role Phone Natalie Cavazos MD Primary Care Provider [phone] Reason for Visit * Reason Comments Med Refill Encounter Details Date Type Department Care Team ([facility] Contact Info) Description 01/15/2023 Refill [facility] PEDS 505 [place], [place] [phone] Natalie Cavazos MD 505 [place] [address] Failed back surgical syndrome Social History Tobacco [...] Description 11/14/2024 1:30 PM EDT Clinical Support [facility] MED & PEDS 505 [place] [address] Erinn Hernández, MIKAYLA 505 [place] [address] documented as of this encounter 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
--- OUTSIDE RECORDS SUMMARY | 2024-10-22 18:25 | XMS_ITS | Encounter Summary ---
Author Organization [employer] Address [address] [address] Care Team Providers Care Artificial Teeth Inspector Name Role Phone Natalie Cavazos MD Primary Care Provider Reason for Visit * Reason Onset Date Comments Med Refill 09/27/2023 Encounter Details Date Type Department Care Team ([facility] Contact Info) Description 09/27/2023 Telephone [facility] MEDICINE 230 [place] [address] Natalie Cavazos MD 505 [place] [address] Med Refill Social History Tobacco Use Types [...] immediate release tablet To be sent to: [facility] - [place], [place] - [address] [place] [address] documented in this encounter Plan of Treatment Upcoming Encounters Date Type Department Care Team (Late st Contact Info) Description 11/14/2024 1:30 PM EDT Clinical Support [facility] MED & PEDS 505 [place] [address] Erinn Hernández, MIKAYLA [address] [place] [address] documented as of this encounter Visit Diagnoses Not on filedocumented in this encounter Additional Health Concerns Assessment Noted Time PHQ-9 Depression Total Score: 11 024 2:03 PM EDT documented as of this encounter Care Teams Artificial Teeth Inspector Relationship Specialty Start Date End Date Beauzile, Thevenin, MD [address] [place] [address] PCP - General Internal Medicine 02/15/18 documented as of this encounter
--- OUTSIDE RECORDS SUMMARY | 2024-10-22 18:25 | XMS_ITS | Encounter Summary ---
Author Organization [employer] Address [address] [address] Care Team Providers Care Division Operations Manager Name Role Phone Natalie Cavazos MD Primary Care Provider Reason for Visit * Reason Onset Date Comments Appointment Request 08/30/2024 Encounter Details Date Type Department Care Team ([facility] Contact Info) Description 08/30/2024 Telephone [facility] MEDICINE 230 [place] [address] Natalie Cavazos MD 505 [place] [address] Appointment Request Social History Tobacco Use Types Packs/Day [...] Miscellaneous Notes * Telephone Encounter - Ced iMke - 08/30/2024 12:00 PM EDT Tc from pt requesting call back regarding tomorrow's GYNAECOLOGICAL ONCOLOGIST visit. Pt states she is sick and would like to know if nurse would feel it's necessary to reschedule appt. Please contact pt at [phone]. documented in this encounter Plan of Treatment Upcoming Encounters Date Type Department Care Team ([facility] st Contact Info) Description 11/14/2024 1:30 PM EDT Clinical Support [facility] MED & PEDS 505 [place] [address] Erinn Hernández, RN 505 [place] [address] documented as of this encounter Visit Diagnoses Not on filedocumented in this encounter Additional Health Concerns Assessment Noted Time PHQ-9 Depression Total Score: 11 024 2:03 PM EDT documented as of this encounter Care Teams Division Operations Manager Relationship Specialty Start Date End Date Natalie Cavazos MD [address] [place] [address] PCP - General Internal Medicine 02/15/18 documented as of this encounter
--- OUTSIDE RECORDS SUMMARY | 2024-10-22 18:25 | XMS_ITS | Encounter Summary ---
Author Organization [employer] Address [address] [address] Care Team Providers Care Instrument Shop Supervisor Name Role Phone Natalie Cavazos MD Primary Care Provider Reason for Visit * Reason Onset Date Comments Med Refill 07/13/2024 Encounter Details Date Type Department Care Team ([facility] Contact Info) Description 07/13/2024 Telephone [facility] MEDICINE 230 [place] [address] Natalie Cavazos MD 505 [place] [address] Med Refill Social History Tobacco Use Types [...] * Telephone Encounter - Ced Mike - 07/13/2024 12:51 PM EDT TC from pt requesting medication refill. Medications needing refill: oxyCODONE (Roxicodone) 5 MG immediate release tablet To be sent to: [facility] - [place], [place] - 230 [facility] documented in this encounter Plan of Treatment Upcoming Encounters Date Type Department Care Team (Late st Contact Info) Description 11/14/2024 1:30 PM EDT Clinical Support [facility] MED & PEDS 505 [place] [address] Erinn Hernández, RN 505 [place] [address] documented as of this encounter Visit Diagnoses Not on filedocumented in this encounter Additional Health Concerns Assessment Noted Time PHQ-9 Depression Total Score: 11 024 2:03 PM EDT documented as of this encounter Care Teams Instrument Shop Supervisor Relationship Specialty Start Date End Date Natalie Cavazos MD [address] [place] [address] PCP - General Internal Medicine 02/15/18 documented as of this encounter
--- OUTSIDE RECORDS SUMMARY | 2024-10-22 18:25 | XMS_ITS | Encounter Summary ---
Author Organization [employer] Address [address] [address] Care Team Providers Care Statement Services Representative Name Role Phone Natalie Cavazos MD Primary Care Provider Reason for Visit * Reason Onset Date Comments Call Back Request 08/30/2023 Encounter Details Date Type Department Care Team ([facility] Contact Info) Description 08/30/2023 Telephone [facility] MEDICINE 230 [place] [address] Natalie Cavazos MD 505 [place] [address] Call Back Request Social History Tobacco Use [...] Upcoming Encounters Date Type Department Care Team ([facility] Contact Info) Description 11/14/2024 1:30 PM EDT Clinical Support [facility] 505 [place] [address] Erinn Hernández RN 505 [place] [address] documented as of this encounter Visit Diagnoses Not on filedocumented in this encounter Additional Health Concerns Assessment Noted Time PHQ-9 Depression Total Score: 11 024 2:03 PM EDT documented as of this encounter Care Teams Statement Services Representative Relationship Specialty Start Date End Date Natalie Cavazos MD 505 [place] [address] PCP - General Internal Medicine 02/15/18 documented as of this encounter
--- OUTSIDE RECORDS SUMMARY | 2024-10-22 18:25 | XMS_ITS | Encounter Summary ---
Author Organization [employer] Address [address] [address] Care Team Providers Care Voip Technician Name Role Phone Natalie Cavazos MD Primary Care Provider Reason for Visit * Reason Onset Date Comments Med Refill 12/31/2022 Encounter Details Date Type Department Care Team ([facility] Contact Info) Description 12/31/2022 Telephone [facility] MEDICINE 230 [place] [address] Natalie Cavazos MD 505 [place] [address] Med Refill Social History Tobacco Use Types [...] oxyCODONE (Roxicodone) 5 MG immediate release tablet [facility] - [place], [place] - 230 [facility] documented in this encounter Plan of Treatment Upcoming Encounters Date Type Department Care Team (Late st Contact Info) Description 11/14/2024 1:30 PM EDT Clinical Support [facility] MED & PEDS 505 [place] [address] Erinn Hernández RN 505 [place] [address] documented as of this encounter Visit Diagnoses Not on filedocumented in this encounter Additional Health Concerns Assessment Noted Time PHQ-9 Depression Total Score: 22 023 3:00 PM EDT documented as of this encounter Care Teams Voip Technician Relationship Specialty Start Date End Date Natalie Cavazos MD 505 [place] [address] PCP - General Internal Medicine 02/15/18 documented as of this encounter
--- OUTSIDE RECORDS SUMMARY | 2024-10-22 18:25 | XMS_ITS | Encounter Summary ---
Author Organization [employer] Address [address] [address] Care Team Providers Care Shirt Marker Name Role Phone Natalie Cavazos MD Primary Care Provider Reason for Visit * Reason Onset Date Comments Med Refill 09/13/2023 Encounter Details Date Type Department Care Team ([facility] Contact Info) Description 09/13/2023 Telephone [facility] MEDICINE 230 [place] [address] Natalie Cavazos MD 505 [place] [address] Med Refill Social History Tobacco Use Types [...] immediate release tablet To be sent to: [facility] - [place], [place] - 230 [facility] documented in this encounter Plan of Treatment Upcoming Encounters Date Type Department Care Team (Late st Contact Info) Description 11/14/2024 1:30 PM EDT Clinical Support [facility] MED & PEDS [address] [place] [address] Erinn Hernández, MIKAYLA 505 [place] [address] documented as of this encounter Visit Diagnoses Not on filedocumented in this encounter Additional Health Concerns Assessment Noted Time PHQ-9 Depression Total Score: 11 024 2:03 PM EDT documented as of this encounter Care Teams Shirt Marker Relationship Specialty Start Date End Date Beauzile, Thevenin, MD [address] [place] [address] PCP - General Internal Medicine 02/15/18 documented as of this encounter
--- OUTSIDE RECORDS SUMMARY | 2024-10-22 18:25 | XMS_ITS | Encounter Summary ---
Author Organization [employer] Address [address] [address] Care Team Providers Care Trauma Counsellor Name Role Phone Natalie Cavazos MD Primary Care Provider [phone] Reason for Visit * Reason Onset Date Comments Med Refill 10/11/2023 Encounter Details Date Type Department Care Team ([facility] Contact Info) Description 10/11/2023 Telephone [facility] MEDICINE 230 [place] [address] Natalie Cavazos MD 505 [place] [address] Med Refill Social History Tobacco Use Types [...] immediate release tablet To be sent to: [facility] - [place], [place] - [address] [place] [address] documented in this encounter Plan of Treatment Upcoming Encounters Date Type Department Care Team (Late st Contact Info) Description 11/14/2024 1:30 PM EDT Clinical Support [facility]ED[facility] 505 [facility] [place] [address] Erinn Hernández, MIKAYLA 505 [facility] [place] [address] documented as of this encounter Visit Diagnoses Not on filedocumented in this encounter Additional Health Concerns Assessment Noted Time PHQ-9 Depression Total Score: 11 024 2:03 PM EDT documented as of this encounter Care Teams Trauma Counsellor Relationship Specialty Start Date End Date Beauzile, Thevenin, MD [address] [place] [address] PCP - General Internal Medicine 02/15/18 documented as of this encounter
--- OUTSIDE RECORDS SUMMARY | 2024-10-22 18:26 | XMS_ITS | Encounter Summary ---
Author Organization [employer] Address [address] [address] Care Team Providers Care Regulatory Affairs Strategy Specialist Name Role Phone Natalie Cavazos MD Primary Care Provider [phone] Reason for Visit * Reason Onset Date Comments Med Refill 06/02/2022 Encounter Details Date Type Department Care Team ([facility] Contact Info) Description 06/02/2022 Telephone [facility] MEDICINE 230 [place] [address] Natalie Cavazos MD 505 [place] [address] Med Refill Social History Tobacco Use Types [...] [facility] MED & PEDS 505 [place] [address] Erinn Hernández, MIKAYLA 505 [place] [address] documented as of this encounter Visit Diagnoses Not on filedocumented in this encounter Additional Health Concerns Assessment Noted Time PHQ-9 Depression Total Score: 16 023 3:14 PM EST documented as of this encounter Care Teams Regulatory Affairs Strategy Specialist Relationship Specialty Start Date End Date Natalie Cavazos MD 505 [place] [address] PCP - General Internal Medicine 02/15/18 documented as of this encounter
--- OUTSIDE RECORDS SUMMARY | 2024-10-22 18:26 | XMS_ITS | Clinical Summary ---
Author Organization [employer] Address 75 [facility] 7 [place] [address] Care Team Providers Care Air Conditioning Specialist Name Role Phone Natalie Cavazos MD [...] topically at bed time. 05/27/19 22 Active omeprazole (PriLOSEC) [address] capsule [...] by mouth Once per day. 30 tablet 02/21/19 25 Active loratadine (Claritin) 10 MG tablet Take 1 tablet (10 mg) by mouth Once per day. 30 tablet 02/21/19 25 Active betamethasone valerate (Valisone) 0.1 % ointmentIndicati ons:Psoriasiform dermatitis APPLY TOPICALLY TO THE AFFECTED AREA(S) TWICE DAILY IN THE MORNING AND AT BEDTIME NEEDED DRY SKIN 45 g 2 09/22/19 25 Active naloxone (Narcan) 4 mg/0.1 mL nasal spray Administer 1 spray (4 mg) into affected nostril(s) if needed for opioid reversal. 2 each 1 10/13/19 25 Active hydrOXYzine pamoate (Vistaril) 50 MG capsuleIndicatio ns:Mixed anxiety and depressive disorder To take 1 capsule 1 hour prior to the procedure. May take another capsule 1 hour later if needed. 2 capsule 10/18/19 25 Active pregabalin (Lyrica) 300 MG capsuleIndicatio ns:Fibromyalgia, Chronic pain syndrome TAKE 1 CAPSULE BY MOUTH TWICE DAILY 60 capsule 10/20/19 25 Active oxyCODONE (Roxicodone) 5 MG immediate release tabletIndication s:Chronic pain syndrome Take 2 tablets (10 mg) by mouth every 6 (six) hours if needed for severe pain. Do not start before October 20, 2024. 112 tablet 10/21/19 Active naloxone (Narcan) 4 mg/0.1 mL nasal spray Administer 0.1 mL into affected nostril(s). 04/17/19 21 2024 Discontinued(R eorder (will not trigger notification to Pharmacy)) oxyCODONE (Roxicodone) 5 MG immediate release tabletIndication s:Chronic pain syndrome Take 1 tablet (5 mg) by mouth every 6 (six) hours if needed for severe pain. 112 tablet 09/09/19 25 2024 Discontinued(R eorder (will not trigger notification to Pharmacy)) pregabalin (Lyrica) 300 MG capsuleIndicatio ns:Fibromyalgia, Chronic pain syndrome TAKE 1 CAPSULE BY MOUTH TWICE DAILY 60 capsule 09/23/19 25 2024 Discontinued(R eorder (will not trigger notification to Pharmacy)) oxyCODONE (Roxicodone) 5 MG immediate release tabletIndication s:Chronic pain syndrome Take 2 tablets (10 mg) by mouth every 6 (six) hours if needed for severe pain. 112 tablet 09/26/19 25 2024 Discontinued(R eorder (will not trigger notification to Pharmacy)) oxyCODONE (Roxicodone) 5 MG immediate release tabletIndication s:Chronic pain syndrome Take 2 tablets (10 mg) by mouth every 6 (six) hours if needed for severe pain. 112 tablet 09/26/19 25 2024 Discontinued(R eorder (will not trigger notification to Pharmacy)) ketorolac (Toradol) 10 MG tabletIndication s:Lumbosacral radiculopathy Take 1 tablet (10 mg) by mouth every 6 (six) hours if needed for moderate pain for up to 5 days. 20 tablet 09/30/19 25 2024 oxyCODONE (Roxicodone) 5 MG immediate release tabletIndication s:Chronic pain syndrome Take 2 tablets (10 mg) by mouth every 6 (six) hours if needed for severe pain. Do not start before October 06, 2024. 112 tablet 08/222024 Discontinued(R eorder (will not trigger notification to Pharmacy)) Hospital, Clinic, or Other Facility Administered Medication Ordered Dose Route Frequency Start Date End Date Status ketorolac (Toradol) injection 30 mgIndications:Lumbosacral radiculopathy 30 mg IM Once 09/29/2024 09/29/2024 Ended Active Problems Problem Noted Date Diagnosed Date [...] and frequency. Emotions were normalized and validated. Madiosn identified cleaning as coping mechanisms and her [...] in services PLAN: 1. Follow up with [facility]: Not recommended for follow-up 2. Patient goal is to control her sxs and feel better 3. Behavioral Recommendations a. Ind. therapy b. Use of Coping skills c. Contact this [facility] as needed for support. 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 Lumbosacral radiculopathy 11/30/2012 Carpal tunnel syndrome 06/01/2011 Encounters Date Type Department Care Team Description 10/19/2024 Refill [facility] [address] [place] [address] Natalie Cavazos MD Fibromyalgia; Chronic pain syndrome 10/19/2024 Refill [facility] [address] [place] [address] Natalie Cavazos MD Chronic pain syndrome 10/17/2024 Orders Only [facility] [address] [place] [address] Natalie Cavazos MD Mixed anxiety and depressive disorder (Primary Dx) 10/17/2024 Telephone [facility] [address] [place] [address] Natalie Cavazos MD Medication Question 10/12/2024 2:00 PM EDT Telemedicine [facility] [address] [place] [address] Erinn Hernández, MIKAYLA Long-term current use of opiate analgesic 10/12/2024 Refill [facility] [address] [place] [address] Erinn Hernández RN 10/12/2024 Travel 10/11/2024 Travel 10/11/2024 Telephone [facility] [address] [place] [address] Natalie Cavazos MD Appointment Request 10/05/2024 Refill [facility] [address] [place] [address] Erinn Hernández RN Chronic pain syndrome 10/05/2024 Telephone [facility] [address] [place] [address] Natalie Cavazos MD Med Refill 09/29/2024 2:40 PM EDT Office Visit [facility] [address] [place], [place] [phone] Natalie Cavazos MD Lumbosacral radiculopathy (Primary Dx) 09/29/2024 Travel 09/28/2024 Telephone [facility] [address] [place] [address] Natalie Cavazos MD Nurse Triage 09/25/2024 Orders Only [facility] [address] [place], [place] [phone] Natalie Cavazos MD Chronic pain syndrome 09/25/2024 Refill [facility] [address] [place], [place] [phone] Erinn Hernández RN Chronic pain syndrome 09/22/2024 Telephone [facility] [address] [place] [address] Natalie Cavazos MD Med Refill 09/22/2024 Refill [facility] [address] [place] [address] Natalie Cavazos MD Fibromyalgia; Chronic pain syndrome 09/21/2024 Refill [facility] [address] [place], [place] [phone] Natalie Cavazos MD 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 Refill [facility] [address] [place], [place] [phone] Natalie Cavazos MD Chronic pain syndrome 09/04/2024 Refill [facility] [address] [place] [address] Kingsley Hickey MD Chronic pain syndrome 08/30/2024 Travel 08/30/2024 Telephone [facility] [address] [place], [place] [phone] Erinn Hernández, MIKAYLA 08/30/2024 Orders Only [facility] [address] [place] [address] Nori Hemphill MD 08/30/2024 Telephone [facility] [address] [place] [address] Natalie Cavazos MD Appointment Request 08/24/2024 Refill [facility] [address] [place] [address] Natalie Cavazos MD Chronic pain syndrome 08/24/2024 Refill [facility] [address] [place] [address] Natalie Cavazos MD Fibromyalgia; Chronic pain syndrome 08/23/2024 Telephone [facility] [address] [place] [address] Natalie Cavazos MD reschedule appt 08/11/2024 Refill [facility] [address] [place] [address] Erinn Hernández RN Chronic pain syndrome 08/11/2024 Telephone [facility] [address] [place] [address] Natalie Cavazos MD Med Refill 07/27/2024 Refill [facility] [address] [place], [place] [phone] Natalie Cavazos MD Fibromyalgia; Chronic pain syndrome 07/27/2024 Telephone [facility] [address] [place] [address] Natalie Cavazos MD Med Refill from Last 3 Months Immunizations Immunization Administration [...] Sign Reading Time Taken Comments Blood Pressure 138/82 09/29/2024 2:27 PM EDT Pulse 80 09/29/2024 2:27 PM EDT Temperature 36.7 C (98.1 F) 09/29/2024 2:27 PM EDT Respiratory Rate 20 09/29/2024 2:27 PM EDT Oxygen Saturation 98% 09/29/2024 2:27 PM EDT Inhaled Oxygen Concentration - - Weight 67.2 kg (148 lb 3.2 oz) 09/29/2024 2:27 P M EDT Height 160 cm (5' 3 ) 09/29/2024 2:27 PM EDT Body Mass Index 26.25 09/29/2024 2:27 PM EDT Plan of Treatment Upcoming Encounters Date Type Department Care Team (Late st Contact Info) Description 11/14/2024 1:30 PM EDT Clinical Support [facility] [address] [place] [address] Erinn Hernández, RN [address] [place] [address] Health Maintenance Due Date Last Done Comments CT Colonography 1968 FIT DNA/Cologuard 1968 FIT 1968 FOBT 1968 HIV Screening 1968 Lipid Panel 1968 Sigmoidoscopy 1968 Hepatitis C Screening 1986 Pap Smear 1989 Cervical Cancer Screening 1998 HPV/Cotest 1998 Pneumococcal Vaccine: 50+ Years (2 of 2 - PCV) 07/12/2017 07/12/2016 COVID-19 Vaccine ( - season) 2024 01/21/2023, 05/09/2021, 05/09/2021, Additional history exists Influenza Vaccine (#1) 2024 , 11/11/2021, 10/19/2020, Additional history exists SDOH Screening 05/19/2025 05/19/2024 Tobacco Screening 05/25/2025 05/25/2024 Alcohol/Substance Use Screening 09/29/2025 09/29/2024 Depression Screening 09/29/2025 09/29/2024, 09/30/19 Disability Screening 09/29/2025 09/29/2024 DTaP/Tdap/Td Vaccines (2 - Td or Tdap) 12/10/2025 12/11/2015, 08/09/2011 Mammogram 08/29/2026 08/29/2024, 07/17, 07/01/2016 Colonoscopy 03/08/2028 03/08/2018 Colorectal Cancer Screening 03/08/2028 [...] Comments MAMMOGRAPHY Routine 08/29/2024 12:54 PM EDT COLONOSCOPY Routine 03/08/2018 from Last 3 Months or Most Recently Relevant to Health Maintenance Results * Mammography (08/29/2024 12:54 PM EDT) Anatomical Region Laterality Modality Other us Historical Provider HEALTH MAINTENANCE Final Result * Colonoscopy (03/08/2018) Colonoscopy performed us Historical Provider HEALTH MAINTENANCE Final Result from Last 3 Months or Most Recently Relevant to Health Maintenance [facility] Care Teams Air Conditioning Specialist Relationship Specialty Start Date End Date Natalie Cavazos MD [address] [place] [address] PCP - General Internal Medicine 02/15/18
--- OUTSIDE RECORDS SUMMARY | 2024-10-22 18:26 | XMS_ITS | Encounter Summary ---
Author Organization [employer] Address [address] [place] [address] [place] [address] Care Team Providers Care Forgesmith Name Role Phone Natalie Cavazos MD Primary Care Provider Encounter Details Date Type Department Care Team ([facility] Contact Info) Description 08/24/2022 Abstract [facility]EDS [address] [place], [place] [phone] Natalie Cavazos MD [address] [place] [address] Social History Tobacco Use Types Packs/Day Years [...] Recorded In the last 10 days, have lilian u been in contact with someone who was confirmed or suspected to have Coronavirus/COVID-19? No / Unsure 08/17/2022 12:53 PM EDT documented as of this encounter Plan of Treatment Upcoming Encounters Date Type Department Care Team ([facility] st Contact Info) Description 11/14/2024 1:30 PM EDT Clinical Support [facility] & [facility] [address] [place] [address] Erinn Hernández, MIKAYLA 505 [place] [address] documented as of this encounter Visit Diagnoses Not on filedocumented in this encounter Additional Health Concerns Assessment Noted Time PHQ-9 Depression Total Score: 22 023 3:00 PM EDT documented as of this encounter Care Teams Forgesmith Relationship Specialty Start Date End Date Natalie Cavazos MD [address] [place] [address] PCP - General Internal Medicine 02/15/18 documented as of this encounter
--- OUTSIDE RECORDS SUMMARY | 2024-10-22 18:26 | XMS_ITS | Encounter Summary ---
Author Organization [employer] Address 75 [facility] 7 [place] [address] Care Team Providers Care Informatics Nurse Name Role Phone Natalie Cavazos MD Primary Care Provider [phone] Encounter Details Date Type Department Care Team ([facility] Contact Info) Description 10/17/[address] [facility] MED & PEDS [address] [place], [place] [phone] Natalie Cavazos MD [address] [place] [address] Mixed anxiety and depressive disorder (Primary Dx) Social History Tobacco Use Types Packs/Day Years [...] [facility] [address] [place] [address] Erinn Hernández, MIKAYLA [address] [place] [address] documented as of this encounter Visit Diagnoses Diagnosis Mixed anxiety and depressive disorder- Primary Dysthymic disorder documented in this encounter Additional Health Concerns Assessment Noted Time PHQ-9 Depression Total Score: 4 09/30/19 25 2:27 PM EDT documented as of this encounter Care Teams Informatics Nurse Relationship Specialty Start Date End Date Natalie Cavazos MD [address] [place] [address] PCP - General Internal Medicine 02/15/18 documented as of this encounter
--- OUTSIDE RECORDS SUMMARY | 2024-10-22 18:26 | XMS_ITS | Encounter Summary ---
Author Organization [employer] Address [address] [place] [address], [place] [address] Care Team Providers Care Cafeteria Server Name Role Phone Natalie Cavazos MD Primary Care Provider Encounter Details Date Type Department Care Team ([facility] Contact Info) Description 08/24/2022 Abstract [facility] [address] [place], [place] [phone] Natalie Cavazos MD [address] [place] [address] Social History Tobacco Use Types Packs/Day Years [...] Upcoming Encounters Date Type Department Care Team ([facility] st Contact Info) Description 11/14/2024 1:30 PM EDT Clinical Support [facility] [address] [place] [address] Erinn Hernández, MIKAYLA [address] [place] [address] documented as of this encounter Visit Diagnoses Not on filedocumented in this encounter Additional Health Concerns Assessment Noted Time PHQ-9 Depression Total Score: 22 023 3:00 PM EDT documented as of this encounter Care Teams Cafeteria Server Relationship Specialty Start Date End Date Natalie Cavazos MD [address] [place] [address] PCP - General Internal Medicine 02/15/18 documented as of this encounter
--- OUTSIDE RECORDS SUMMARY | 2024-10-22 18:26 | XMS_ITS | Clinical Summary ---
Author Organization 175 [facility] Address [address] [place] [address] Phone Care Team Providers Care Crating And Moving Estimator Name Role Phone Natalie Cavazos MD Primary Care Provider [phone] Allergies Active Allergy Reactions Criticality Noted Date [...] Care Team (Late st Contact Info) Description 10/23/2024 11:00 AM EDT Office Visit [facility] [place] [address] 175 [facility] [address] [place] [phone] Gerardo Argueta MD [address] [address] Health Maintenance Due Date Last Done Comments Breast Cancer Screening 1968 Cervical Cancer Screening: Pap Smear 07/21/2014 07/22/2011 Pneumococcal Vaccine: 50+ Years (2 of 2 - PCV) 07/12/2017 07/12/2016 Cholesterol Screening (Lipid Panel) 01/25/2022 Colorectal Cancer Screening: Colonoscopy 01/25/2022 HIV Screening 01/25/2022 Hepatitis C Screening 01/25/2022 Social Influencers of Health Screening 01/25/2022 Depression Screening 02/16/2024 COVID-19 Vaccine ( season) 2024 01/21/2023, 05/09/2021, 05/27/2020 Influenza Vaccine (#1) 2024 , 11/11/2021, 10/19/2020, [...] Health Maintenance Results * Pap Smear (07/22/2011) HM Pap smear No Interpretation , Abstracted Historical Provider MD HEALTH MAINTENANCE Final Result from Last 3 Months or Most Recently Relevant to Health Maintenance Insurance MEDICAID - [place] Care Teams Crating And Moving Estimator Relationship Specialty Start Date End Date Natalie Cavazos MD [address] [place] [address] PCP - General Internal Medicine 08/27/20
--- OUTSIDE RECORDS SUMMARY | 2024-10-22 18:26 | XMS_ITS | Encounter Summary ---
Author Organization [employer] Address [address] [address] Care Team Providers Care Steward/Stewardess Room Name Role Phone Natalie Cavazos MD Primary Care Provider Reason for Visit * Reason Onset Date Comments Med Refill 10/19/2024 Encounter Details Date Type Department Care Team ([facility] Contact Info) Description 10/19/2024 Refill [facility] [address] [place] [address] Natalie Cavazos MD [address] [place] [address] Chronic pain syndrome Social History Tobacco Use [...] encounter Miscellaneous Notes * Telephone Encounter - Qasim Briggs - 10/19/2024 1:16 PM EDT TC from pt requesting medication refill. Medications needing refill : oxyCODONE (Roxicodone) 5 MG immediate release tablet To be sent to: [facility] - [place], [place] - 230 [facility] documented in this encounter Plan of Treatment Upcoming Encounters Date Type Department Care Team (Late st Contact Info) Description 11/14/2024 1:30 PM EDT Clinical Support [facility] PEDS [address] [place] [address] Erinn Hernández, RN [address] [place] [address] documented as of this encounter Visit Diagnoses Diagnosis Chronic pain syndrome documented in this encounter Additional Health Concerns Assessment Noted Time PHQ-9 Depression Total Score: 4 09/30/19 25 2:27 PM EDT documented as of this encounter Care Teams Steward/Stewardess Room Relationship Specialty Start Date End Date Natalie Cavazos MD [address] [place] [address] PCP - General Internal Medicine 02/15/18 documented as of this encounter
--- OUTSIDE RECORDS SUMMARY | 2024-10-22 18:26 | XMS_ITS | Encounter Summary ---
Author Organization [employer] Address [address] [address] Care Team Providers Care Graphic Engineer Name Role Phone Natalie Cavazos MD Primary Care Provider Reason for Visit * Reason Onset Date Comments Med Refill 06/16/2024 Encounter Details Date Type Department Care Team ([facility] Contact Info) Description 06/16/2024 Telephone [facility] [address] [place] [address] Natalie Cavazos MD [address] [place] [address] Med Refill Social History Tobacco Use Types [...] immediate release tablet To be sent to: [facility] pharmacy documented in this encounter Plan of Treatment Upcoming Encounters Date Type Department Care Team (Late st Contact Info) Description 11/14/2024 1:30 PM EDT Clinical Support [facility]EDS [address] [place] [address] Erinn Hernández, RN [address] [place] [address] documented as of this encounter Visit Diagnoses Not on filedocumented in this encounter Additional Health Concerns Assessment Noted Time PHQ-9 Depression Total Score: 11 024 2:03 PM EDT documented as of this encounter Care Teams Graphic Engineer Relationship Specialty Start Date End Date Natalie Cavazos MD [address] [place] [address] PCP - General Internal Medicine 02/15/18 documented as of this encounter
--- OUTSIDE RECORDS SUMMARY | 2024-10-22 18:26 | XMS_ITS | Encounter Summary ---
Author Organization [employer] Address 75 [facility] 7 [place] [address] Care Team Providers Care Airconditioning Drafting Officer Name Role Phone Natalie Cavazos MD Primary Care Provider [phone] Encounter Details Date Type Department Care Team ([facility] Contact Info) Description 01/27/2024 Telephone [facility]INE [address] [place] [address] Natalie Cavazos MD [address] [place] [address] Social History Tobacco Use Types Packs/Day Years [...] Description 11/14/2024 1:30 PM EDT Clinical Support [facility] MED [facility] PED[facility] [address] [place] [address] Erinn Hernández RN [address] [place] [address] documented as of this encounter Visit Diagnoses Not on filedocumented in this encounter Additional Health Concerns Assessment Noted Time PHQ-9 Depression Total Score: 11 024 2:03 PM EDT documented as of this encounter Care Teams Airconditioning Drafting Officer Relationship Specialty Start Date End Date Natalie Cavazos MD [address] [place] [address] PCP - General Internal Medicine 02/15/18 documented as of this encounter
--- OUTSIDE RECORDS SUMMARY | 2024-10-22 18:26 | XMS_ITS | Encounter Summary ---
Author Organization [employer] Address [address] [address] Care Team Providers Care Director Geothermal Operations Name Role Phone Natalie Cavazos MD Primary Care Provider [phone] Reason for Visit * Reason Onset Date Comments Med Refill 01/12/2024 Encounter Details Date Type Department Care Team ([facility] Contact Info) Description 01/12/2024 Telephone [facility] MEDICINE [address] [place] [address] Natalie Cavazos MD [address] [place] [address] Med Refill Social History Tobacco Use Types [...] immediate release tablet To be sent to: [facility] documented in this encounter Plan of Treatment Upcoming Encounters Date Type Department Care Team (Late st Contact Info) Description 11/14/2024 1:30 PM EDT Clinical Support [facility] MED & PEDS [address] [place] [address] Erinn Hernández, MIKAYLA 505 [place] [address] documented as of this encounter Visit Diagnoses Not on filedocumented in this encounter Additional Health Concerns Assessment Noted Time PHQ-9 Depression Total Score: 11 024 2:03 PM EDT documented as of this encounter Care Teams Director Geothermal Operations Relationship Specialty Start Date End Date Natalie Cavazos MD [address] [place] [address] PCP - General Internal Medicine 02/15/18 documented as of this encounter
--- OUTSIDE RECORDS SUMMARY | 2024-10-22 18:26 | XMS_ITS | Encounter Summary ---
Author Organization [employer] Address [address] [address] Care Team Providers Care Assistant Business Manager Name Role Phone Natalie Cavazos MD Primary Care Provider Reason for Visit * Reason Onset Date Comments Med Refill 11/30/2023 Encounter Details Date Type Department Care Team ([facility] Contact Info) Description 11/30/2023 Telephone [facility] MEDICINE [address] [place] [address] Natalie Cavazos MD [address] [place] [address] Med Refill Social History Tobacco Use Types [...] immediate release tablet To be sent to: [facility] - [place], [place] - [address] [facility] [employer] documented in this encounter Plan of Treatment Upcoming Encounters Date Type Department Care Team (Late st Contact Info) Description 11/14/2024 1:30 PM EDT Clinical Support [facility]EDS [address] [place] [address] Erinn Hernández RN 505 [place] [address] documented as of this encounter Visit Diagnoses Not on filedocumented in this encounter Additional Health Concerns Assessment Noted Time PHQ-9 Depression Total Score: 11 024 2:03 PM EDT documented as of this encounter Care Teams Assistant Business Manager Relationship Specialty Start Date End Date Natalie Cavazos MD [address] [place] [address] PCP - General Internal Medicine 02/15/18 documented as of this encounter
--- OUTSIDE RECORDS SUMMARY | 2024-10-22 18:26 | XMS_ITS | Encounter Summary ---
Author Organization [employer] Address [address] [address] Care Team Providers Care Director Corporate Name Role Phone Natalie Cavazos MD Primary Care Provider Reason for Visit * Reason Onset Date Comments Med Refill 10/05/2024 Encounter Details Date Type Department Care Team ([facility] Contact Info) Description 10/05/2024 Telephone [facility] [address] [place] [address] Natalie Cavazos MD 505 [place] [address] Med Refill Social History Tobacco Use Types [...] * Telephone Encounter - Ced Mike - 10/05/2024 11:12 AM EDT TC from pt requesting medication refill. Medications needing refill: oxyCODONE (Roxicodone) 5 MG immediate release tablet To be sent to: [facility] - [place], [place] - [address] [facility] documented in this encounter Plan of Treatment Upcoming Encounters Date Type Department Care Team (Late st Contact Info) Description 11/14/2024 1:30 PM EDT Clinical Support [facility] 505 [place] [address] Erinn Hernández, RN 505 [place] [address] documented as of this encounter Visit Diagnoses Not on filedocumented in this encounter Additional Health Concerns Assessment Noted Time PHQ-9 Depression Total Score: 4 09/30/19 25 2:27 PM EDT documented as of this encounter Care Teams Director Corporate Relationship Specialty Start Date End Date Natalie Cavazos MD [address] [place] [address] PCP - General Internal Medicine 02/15/18 documented as of this encounter
--- OUTSIDE RECORDS SUMMARY | 2024-10-22 18:26 | XMS_ITS | Encounter Summary ---
Author Organization [employer] Address [address] [address] Care Team Providers Care Egyptologist Name Role Phone Natalie Cavazos MD Primary Care Provider Reason for Visit * Reason Onset Date Comments Med Refill 10/19/2024 Encounter Details Date Type Department Care Team ([facility] Contact Info) Description 10/19/2024 Refill [facility] 230 [place] [address] Natalie Cavazos MD 505 [place] [address] Fibromyalgia; Chronic pain syndrome Social History Tobacco Use [...] encounter Miscellaneous Notes * Telephone Encounter - Cheyenne Malave LPN - 10/19/2024 1:24 PM EDT HEARING AID REPAIRER checked on 10/19/24. Last seen 09/29/24. * Telephone Encounter - Qasim Briggs - 10/19/2024 1:17 PM EDT TC from pt requesting medication refill. Medications needing refill : pregabalin (Lyrica) 300 MG capsule To be sent to: [facility] documented in this encounter Plan of Treatment Upcoming Encounters Date Type Department Care Team (Late st Contact Info) Description 11/14/2024 1:30 PM EDT Clinical Support [facility] 505 [place] [address] Erinn Hernández, RN 505 [place] [address] documented as of this encounter Visit Diagnoses Diagnosis Fibromyalgia Unspecified myalgia and myositis Chronic pain syndrome documented in this encounter Additional Health Concerns Assessment Noted Time PHQ-9 Depression Total Score: 4 09/30/19 25 2:27 PM EDT documented as of this encounter Care Teams Egyptologist Relationship Specialty Start Date End Date Natalie Cavazos MD [address] [place] [address] PCP - General Internal Medicine 02/15/18 documented as of this encounter
--- OUTSIDE RECORDS SUMMARY | 2024-10-22 18:26 | XMS_ITS | Encounter Summary ---
Author Organization [employer] Address [address] [address] Care Team Providers Care Rotary Machine Operator Name Role Phone Natalie Cavazos MD Primary Care Provider [phone] Reason for Visit * Reason Onset Date Comments Med Refill 01/03/2024 Encounter Details Date Type Department Care Team ([facility] Contact Info) Description 01/03/2024 Telephone [facility] [address] [place] [address] Natalie Cavazos MD 505 [place] [address] Med Refill Social History Tobacco Use Types [...] immediate release tablet To be sent to: [facility] documented in this encounter Plan of Treatment Upcoming Encounters Date Type Department Care Team (Late st Contact Info) Description 11/14/2024 1:30 PM EDT Clinical Support [facility] & PEDS 505 [place] [address] Erinn Hernández, MIKAYLA 505 [place] [address] documented as of this encounter Visit Diagnoses Not on filedocumented in this encounter Additional Health Concerns Assessment Noted Time PHQ-9 Depression Total Score: 11 024 2:03 PM EDT documented as of this encounter Care Teams Rotary Machine Operator Relationship Specialty Start Date End Date Natalie Cavazos MD [address] [place] [address] PCP - General Internal Medicine 02/15/18 documented as of this encounter
--- OUTSIDE RECORDS SUMMARY | 2024-10-22 18:26 | XMS_ITS | Encounter Summary ---
Author Organization [employer] Address [address] [address] Care Team Providers Care Detailer Pharmaceuticals Name Role Phone Natalie Cavazos MD Primary Care Provider Reason for Visit * Reason Onset Date Comments Med Refill 12/20/2023 Encounter Details Date Type Department Care Team ([facility] Contact Info) Description 12/20/2023 Telephone [facility] MEDICINE 230 [place] [address] Natalie Cavazos MD 505 [place] [address] Med Refill Social History Tobacco Use Types [...] your housing situation today? I have sheri vierya 12/02/[address] you li [...] immediate release tablet To be sent to: [facility] - [place], [place] - [address] [place] [address] documented in this encounter Plan of Treatment Upcoming Encounters Date Type Department Care Team (Late st Contact Info) Description 11/14/2024 1:30 PM EDT Clinical Support [facility] 505 [place] [address] Erinn Hernández, MIKAYLA 505 [place] [address] documented as of this encounter Visit Diagnoses Not on filedocumented in this encounter Additional Health Concerns Assessment Noted Time PHQ-9 Depression Total Score: 11 024 2:03 PM EDT documented as of this encounter Care Teams Detailer Pharmaceuticals Relationship Specialty Start Date End Date Natalie Cavazos MD [address] [place] [id number] PCP - General Internal Medicine 02/15/18 documented as of this encounter
--- OUTSIDE RECORDS SUMMARY | 2024-10-22 18:26 | XMS_ITS | Encounter Summary ---
Author Organization [employer] Address [address] [address] Care Team Providers Care Insurance Account Representative Name Role Phone Natalie Cavazos MD Primary Care Provider Reason for Visit * Reason Onset Date Comments Medication Question 10/17/2024 Encounter Details Date Type Department Care Team ([facility] Contact Info) Description 10/17/2024 Telephone [facility] [address] [place] [address] Natalie Cavazos MD 505 [place] [address] Medication Question Social History Tobacco Use Types Packs/Day Years [...] * Telephone Encounter - Qasim Briggs - 10/17/2024 2:14 PM EDT TC from pt requesting medication to relax her for upcoming MRI that is scheduled on 10/22 @ [facility] documented in this encounter Plan of Treatment Upcoming Encounters Date Type Department Care Team ([facility] st Contact Info) Description 11/14/2024 1:30 PM EDT Clinical Support [facility] 505 [place] [address] Erinn Hernández, MIKAYLA 505 [place] [address] documented as of this encounter Visit Diagnoses Not on filedocumented in this encounter Additional Health Concerns Assessment Noted Time PHQ-9 Depression Total Score: 4 09/30/19 25 2:27 PM EDT documented as of this encounter Care Teams Insurance Account Representative Relationship Specialty Start Date End Date Natalie Cavazos MD [address] [place] [address] PCP - General Internal Medicine 02/15/18 documented as of this encounter
--- OUTSIDE RECORDS SUMMARY | 2024-10-22 18:26 | XMS_ITS | Encounter Summary ---
Author Organization [employer] Address [address] [address] Care Team Providers Care General Practice Name Role Phone Natalie Cavazos MD Primary Care Provider Reason for Visit * Reason Onset Date Comments Med Refill 11/04/2023 Encounter Details Date Type Department Care Team ([facility] Contact Info) Description 11/04/2023 Telephone [facility]INE 230 [place] [address] Natalie Cavazos MD 505 [place] [address] Med Refill Social History Tobacco Use Types [...] tablet To be sent to: [facility] - [place], [place] - 230 [facility] documented in this encounter Plan of Treatment Upcoming Encounters Date Type Department Care Team (Late st Contact Info) Description 11/14/2024 1:30 PM EDT Clinical Support [facility]S 505 [place] [address] Erinn Hernández, MIKAYLA 505 [place] [address] documented as of this encounter Visit Diagnoses Not on filedocumented in this encounter Additional Health Concerns Assessment Noted Time PHQ-9 Depression Total Score: 11 024 2:03 PM EDT documented as of this encounter Care Teams General Practice Relationship Specialty Start Date End Date Beauzile, Thevenin, MD [address] [place] [address] PCP - General Internal Medicine 02/15/18 documented as of this encounter
--- OUTSIDE RECORDS SUMMARY | 2024-10-22 18:26 | XMS_ITS | Encounter Summary ---
Author Organization [employer] Address 75 [facility] [address] [place] [address] Care Team Providers Care Electromagnet Crane Operator Name Role Phone Natalie Cavazos MD Primary Care Provider [phone] Encounter Details Date Type Department Care Team ([facility] Contact Info) Description 05/24/2024 Orders Only [facility] [address] [place] [address] Provider, MD Nori Social History Tobacco Use [...] Description 11/14/2024 1:30 PM EDT Clinical Support [facility] MED & PEDS 505 [place] [address] Erinn Hernández RN 505 [place] [address] documented as of this encounter Procedures Procedure [...] documented as of this encounter Care Teams Electromagnet Crane Operator Relationship Specialty Start Date End Date Natalie Cavazos MD [address] [place] [address] PCP - General Internal Medicine 02/15/18 documented as of this encounter
== END 2024-10-22 18:23 | disposition home or self-care (01) ==
LOC: HO.MRI 18:22
PROVIDERS: PCP Internal Medicine; Visit Provider Internal Medicine
DX: M54.17 Radiculopathy, lumbosacral region (principal)
CPT/HCPCS: 72148

== ENCOUNTER → 2024-10-22 18:27 | Outpatient (BNV) | payer MEDICAID, SELFPAY | PROVIDERS: PCP Internal Medicine; Visit Provider Radiology Diagnostic Radiology | DX: M51.16 Intervertebral disc disorders with radiculopathy, lumbar region (principal) | CPT/HCPCS: 72148 ==

== ENCOUNTER 2024-10-26 16:48 | Emergency (ER) | payer MEDICAID, SELFPAY ==
--- NOTE | ~2024-10-26 | US_ITS ---
CLINICAL HISTORY: pain extending from back down leg w swelling Left leg venous duplex Doppler ultrasound with waveform analysis: Comparison: 01/15/2023. Findings: The deep veins in the left leg were evaluated with compression, augmentation and phasicity which are normal. Blood flow in the left leg was also confirmed with color Doppler. Impression: Negative for deep venous thrombosis. This document has been electronically signed by: Sam Nash MD on 10/26/2024 18:13:04
[2024-10-26 17:07] VITALS: BP 114/73; PULSE 92; RESP 16; TEMP 36.5; O2SAT 99; BMI 21.5
--- NOTE | 2024-10-26 17:16 | ED_ITS ---
HPI - General Adult General Chief complaint: Extremity Injury, Lower Stated complaint: left side back and leg pain Time Seen by Provider: 10/26/24 22:04 Source: patient Mode of arrival: ambulatory Limitations: no limitations History of Present Illness ED Provider: HPI narrative: 54-year-old woman with a history of low back pain, just had MRI done to the lower back presenting with left lower extremity swelling, states for the past few days has had a difficulty time with walking, past history of back surgery, has had physical therapy but has not had a flare and 10 years, went to see her provider and had an MRI done. Currently on oxycodone and lidocaine patches. No fevers or chills no IV drug use, no numbness in the groin, no loss of bowel or bladder function. Related Data Home Medications ?Medication ?Instructions ?Recorded ?Confirmed fexofenadine 180 mg tablet 180 mg PO DAILY 02/28/20 (Melody Allergy) pregabalin 300 mg capsule (Lyrica) 300 mg PO BID 02/2708/10/23 cyclobenzaprine 10 mg tablet 10 mg PO BEDTIME 12/25/20 08/10/23 lancets 33 gauge (TRUEplus Lancets) #100 ea 04/28/21 0 08/10/23 lidocaine 5 % topical patch 0 patch topical 04/28/21 0 08/10/23 (Lidoderm) loratadine 10 mg tablet 10 mg PO DAILY 04/28/2107/17 naloxone 4 mg/actuation nasal 0 spray intranasal 07/2108/10/23 spray (Narcan) cholecalciferol (vitamin D3) 25 25 mcg PO DAILY mcg (1,000 unit) tablet nicotine 14 mg/24 hr daily 1 patch topical QAM 4 transdermal patch oxycodone 5 mg tablet 5 - 10 mg PO Q6H PRN severe pain 09/01/23 Previous Rx's ?Medication ?Instructions ?Recorded pyridoxine (vitamin B6) 100 mg 100 mg PO DAILY 90 days #90 tabs 10/15/22 tablet docusate sodium 100 mg capsule 100 mg PO DAILY 30 days #30 caps 09/01/23 dicyclomine 20 mg tablet 20 mg PO QID PRN for abdomin al 09/17/24 pain #120 tabs omeprazole 20 mg capsule,delayed 20 mg PO DAILY #90 ca ps 04/13/24 release fesoterodine 8 mg tablet,extended 8 mg PO DAILY #90 ta bs 07/03/24 release 24 hr (Toviaz) methylprednisolone 4 mg tablets in 4 mg PO DAILY #21 e a 10/26/24 a dose pack (Medrol (Charanjit)) Allergies Allergy/AdvReac Type Severity Reaction Status Date / Time duloxetine (From CYMBALTA) Allergy Severe SEVERE Verified 10/26/24 17:15 DIARRHEA/DEHYDRATION tramadol (TRAMADOL) Allergy Severe SEVERE Verified 10/26/24 17:15 DIARRHEA/DEHYDRATION pollen Allergy Unknown unknown Uncoded 09/25/24 19:18 Review of Systems Constitutional: Constitutional: Reports as per HPI [facility] Past Medical History Medical History Renal calculi Urinary incontinence H. pylori infection Epigastric pain Spinal stenosis, cervical region Fibromyalgia Surgical History Hx of shoulder surgery Hx of neck surgery History of esophagogastroduodenoscopy (EGD) Hx of colonoscopy History of right knee surgery History of spinal fusion Family History Family History Mother Diabetes Family history of cancer Sister HTN (hypertension) Diabetes Maternal Grandmother Heart problem Father Medical history unknown Social History Social History Household Members: None Alcohol intake: current Alcohol intake frequency: does not drink Cigarettes Per Day: 10 Substance Use Type: Marijuana Advance Directives: No Advance Directives Information Provided: No Current occupational status: unemployed Current occupation: rt handed Physical Exam ED Vital Signs: Vital Signs - 24 hr 10/26/24 17:07 Temperature 97.7 F Pulse Rate 92 Respiratory Rate 16 Blood Pressure 114/73 Pulse Oximetry 99 Oxygen Delivery Method Room Air BMI result Body Mass Index 21.5 Const Other: * Gen: ?Overall well-appearing patient * CV: RRR, no obvious murmurs appreciated * Resp: ?No wheezing rales rhonchi no stridor moving air well * Abd: ?Bowel sounds are present, no tenderness no rebound no rigidity * MSK: No deformities, reports hypersensitivity along her lower back her buttock and down her leg to the fingertips, distal pulses intact, there was subtle lower extremity edema compared to the right but it is nonpitting, from under use * Skin: Warm, dry, intact, no rashes * Neuro: ?Alert and oriented x3, moving upper and lower extremities symmetrically, no obvious facial asymmetry noted Course Course Course Narrative: This is a Rapid Medical Examination (RME) performed by Sharonda Dickinson PA-C in triage. Full HPI, ROS, assessment and treatment plan per primary provider in the Main ED. Hx: 54 yo F here for eval of pain extending from low back down LLE into foot. reports swelling/pain to foot. had lumbar MRI on 10/24/24 which was unremarkable. Plan: venous duplex Medical Decision Making Medical Decision Making [facility] Narrative: 10:35 PM 10/26/2024 (Dr. Talon Callahan): I reviewed patient's MRI that was just done a few days ago, there was no evidence for cauda equina she has multiple degenerative changes, presenting with left lower extremity edema looks like dependent leg edema from under use, without any evidence for DVT, arterial insufficiency, cellulitis or compartment syndrome, she is hyper sensitive just to even light Skin touch, we will start patient on steroids, she is currently on oxycodone, also history of fibromyalgia was likely contributing to her presentation Differential Diagnosis Differential Diagnoses: The differential diagnosis associated with the presentation includes (Diskitis, osteomyelitis, spinal epidural abscess, cauda equina, musculoskeletal pain) Lab Data [facility] Lab Attestation statement: I reviewed the patient's lab results. Radiology Impression Discussion of test interpretation with radiology: I have reviewed the radiologist's reading. (Impression: Negative for deep venous thrombosis.) External Record Review External record reviewed: Outpatient record Prescription Management I considered prescription management with: Pain Medication Discharge Plan Discharge Clinical Impression: Left leg swelling, Low back pain Patient Disposition: Home, Self-Care Additional Instructions: I looked over your MRI you have multiple levels of degeneration/arthritis, and you also had an ultrasound of the leg there was no evidence for any clots in the leg your swelling in the leg is due to the fact that you not moving it as readily as the right side and so the body we will start swelling up, please get in touch with the your provider managing her back I believe he will need physical therapy, you may benefit from gabapentin, continue lidocaine patches, and I will start you on steroids starting tomorrow berry picker a prescription and finish a course and after that you can use ibuprofen, Remeron to just take Tylenol 975 mg every 6 hours around the clock, it will create at baseline for pain control after which she can use ibuprofen or oxycodone Other issues or concerns come back to the ER otherwise follow up with your PCP for additional pain control Prescriptions: New methylprednisolone [Medrol (Charanjit)] 4 mg tablets,dose pack 4 mg PO DAILY Qty: 21 0RF Rx Instructions: Day 1: 24 mg on day 1 administered as 8 mg before breakfast, 4 mg after lunch, 4 mg after supper, and 8 mg at bedtime or 24 mg as a single dose or divided into 2 or 3 doses upon initiation. Day 2: 20 mg on day 2 administered as 4 mg before breakfast, 4 mg after lunch, 4 mg after supper, and 8 mg at bedtime. Day 3: 16 mg on day 3 administered as 4 mg before breakfast, 4 mg after lunch, 4 mg after supper, and 4 mg at bedtime. Day 4: 12 mg on day 4 administered as 4 mg before breakfast, 4 mg after lunch, and 4 mg at bedtime. Day 5: 8 mg on day 5 administered as 4 mg before breakfast and 4 mg at bedtime. Day 6: 4 mg on day 6 administered as 4 mg before breakfast. No Action pyridoxine (vitamin B6) 100 mg tablet 100 mg PO DAILY 90 Days Qty: 90 0RF dicyclomine 20 mg tablet 20 mg PO QID PRN (Reason: for abdominal pain) Qty: 120 1RF omeprazole 20 mg capsule,delayed release(DR/EC) 20 mg PO DAILY Qty: 90 2RF pregabalin [Lyrica] 300 mg capsule 300 mg PO BID fexofenadine [Melody Allergy] 180 mg tablet 180 mg PO DAILY naloxone [Narcan] 4 mg/actuation spray,non-aerosol 0 spray intranasal cyclobenzaprine 10 mg tablet 10 mg PO BEDTIME (DME) lancets [TRUEplus Lancets] 33 gauge misc See Rx Instructions Not Applicable DAILY Qty: 100 Rx Instructions: As directed loratadine 10 mg tablet 10 mg PO DAILY lidocaine [Lidoderm] 5 % adhesive patch,medicated 0 patch topical fesoterodine [Toviaz] 8 mg tablet extended release 24 hr 8 mg PO DAILY Qty: 90 2RF oxycodone 5 mg tablet 5 - 10 mg PO Q6H PRN (Reason: severe pain) cholecalciferol (vitamin D3) 25 mcg (1,000 unit) tablet 25 mcg PO DAILY nicotine 14 mg/24 hr patch 24 hour 1 patch topical QAM docusate sodium 100 mg capsule 100 mg PO DAILY 30 Days Qty: 30 6RF Referrals: Natalie Cavazos MD [Primary Care Provider, Medical] - 2 weeks Clinical Impression: Left leg swelling; Low back pain Print Language: Malay
--- OUTSIDE RECORDS SUMMARY | 2024-10-26 22:10 | XMS_ITS | Clinical Summary ---
Author Organization [facility] Address [address] [place] [address] Care Team Providers Care Soil Conservation Aide Name Role Phone Natalie Cavazos MD Primary Care Provider [phone] Social History Tobacco Use Types Packs/Day Years [...] age to complete this topic Care Teams Soil Conservation Aide Relationship Specialty Start Date End Date Natalie Cavazos MD [address] [place] [address] PCP - General Internal Medicine 03/22/20
--- OUTSIDE RECORDS SUMMARY | 2024-10-26 22:10 | XMS_ITS | Clinical Summary ---
Author Organization [address] [facility] Address [address] [place] [address] Phone Care Team Providers Care Telephone Order Clerk Room Service Name Role Phone Natalie Cavazos MD Primary Care Provider [phone] Allergies Active Allergy Reactions Criticality Noted Date [...] Maintenance Insurance MEDICAID - [place] Care Teams Telephone Order Clerk Room Service Relationship Specialty Start Date End Date Natalie Cavazos MD [address] [place] [address] PCP - General Internal Medicine 08/27/20
[2024-10-26 22:35] VITALS: BP 110/75; PULSE 86; RESP 16; TEMP 36.6; O2SAT 100
[2024-10-26] MEDS: oxyCODONE HCl Immed Release 5 MG TABLET 10 MG PO (22:46)
[2024-10-26 22:50] VITALS: BP 110/75; PULSE 86; RESP 16; TEMP 36.6; O2SAT 100
[2024-10-27 04:52] VITALS: BP 110/75; PULSE 86; RESP 16; TEMP 36.6; O2SAT 100
== END 2024-10-26 22:50 | disposition home or self-care (01) ==
PROVIDERS: Emergency Provider Emergency Medicine; PCP Internal Medicine
DX: M54.50 Low back pain, unspecified (principal); M79.89 Other specified soft tissue disorders; Z87.39 Personal history of other diseases of the musculoskeletal system and connective tissue; Z79.899 Other long term (current) drug therapy
CPT/HCPCS: 93971; 96372; 99283; 99284; J1885

== ENCOUNTER → 2024-10-26 17:16 | Outpatient (BNV) | payer MEDICAID, SELFPAY | PROVIDERS: Visit Provider Radiology Diagnostic Radiology | DX: M79.605 Pain in left leg (principal) | CPT/HCPCS: 93971 ==

== ENCOUNTER 2024-12-08 13:55 | Outpatient (AMB) | payer MEDICAID, SELFPAY ==
--- OUTSIDE RECORDS SUMMARY | 2024-12-06 14:00 | XMS_ITS | Encounter Summary ---
Author Organization [facility] Address [address] [place] [address] Care Team Providers Care Statistician Mathematical Name Role Phone Natalie Cavazos MD Primary Care Provider [phone] Reason for Visit * Reason Comments Follow-up Follow-up Encounter Details Date Type Department Care Team (Latest Contact Info) Description 12/06/2024 2:00 PM EDT Office Visit Orthopedic Surgery - [place] [address] [place] [address] [address] [place] [address] Gerardo Argueta MD [address] [place] [phone] Chronic pain of both knees (Primary Dx); Primary osteoarthritis of both knees Social History Tobacco Use Types Packs/Day Years Used Date Smoking Tobacco: Every Day Smokeless Tobacco: Never Alcohol Use Standard Drinks/Week Comments Never 0 (1 standard drink = 0.6 oz pur e alcohol) Comments Unknown Sex and Gender Information Value Date Recorded Sex Assigned at Not on file Legal Sex Female 4:50 AM EST Gender Identity Not on file Sexual Orientation Not on file documented as of this encounter Progress Notes * Gerardo Argueta MD - 12/06/2024 2:00 PM EDT Reason For Visit: Follow-up of the Right Hip and Follow-up of the Left Knee Patient: Madison Ulrich : 1970 VISIT DATE: 12/06/2024 Attestation I asked the patient for permission to use the [facility] system to help with today's visit. They gave consent. HPI: Madison Ulrich is a 54 y.o. year old female who presents follow up on both of her knees. History of Present Illness The patient presents for evaluation of bilateral knee pain. She reports experiencing swelling in her knees, which she has been managing with a brace. The most severe pain is localized to the right knee. Has known DJD of her knees. She would like to try viscosupplementation. She also mentions an upcoming appointment with a neurosurgeon on Wednesday. She describes a sensation of crunching under the kneecap and cracking sounds, particularly in the right knee. She recalls an incident where she was unable to walk due to extreme swelling in her knee, leading her to suspect a fracture. ROS: GENERAL: negative MUSCULOSKELETAL: See HPI The remainder of the review of systems is noncontributory Allergies: Current Allergies[1] Past Medical History: has a past medical history of Anxiety, Chronic pain, Depression, Effusion of neck, Esophageal reflux, Fibromyalgia, H/O arthroscopic knee surgery, and History of back surgery. Social History: Social History Tobacco Use Smoking status: Every Day Smokeless tobacco: Never Substance Use Topics Alcohol use: Never Past Surgeries: Surgical History[2] Medications: Medications Taking[3] Physical Exam: There were no vitals filed for this visit. APPEARANCE: Alert, oriented, no acute distress KNEE BILATERAL Physical Exam Musculoskeletal: bilateral knees: Good range of motion, stable ligaments, mild quadriceps atrophy. Positive patellofemoral crepitus. No meniscal findings. Imaging: XR Knee 3 Views bilat X-rays December 06, 2024. Bilateral PA weightbearing views. Lateral views of both knees. [place] views of both knees. Narrowing of the medial compartment of the right knee with periarticular osteophytes. Small superior and inferior spurring of the lateral view of the right knee patella. No acute osseous abnormalities. Preservation of tibiofemoral compartments of the left knee. [place] view of both knees with no obvious periarticular osteophytes or significant loss of patellofemoral articular cartilage. Assessment and Plan: 1. Chronic pain of both knees 2. Primary osteoarthritis of both knees Assessment & Plan 1. Bilateral knee pain: Swelling and pain are reported in both knees, with the right knee being more problematic. Examination reveals good range of motion but with crepitus under the kneecap, indicative of arthritis. There is also noted quadriceps atrophy. Injections for the right knee will be scheduled pending insurance approval. The patient is advised to keep the upcoming appointment with the neurosurgeon. The goal is to alleviate pain and improve function. Risks and benefits of knee injections were discussed, including potential for temporary painrelief and possible side effects such as infection or increased pain. Lifestyle modifications include avoiding activities that exacerbate knee pain and considering physical therapy for muscle strengthening. Orders for knee injections will be placed, and follow-up will be arranged within a week to co nfirm the appointment. Physical Therapy: Continue with PT/OT Gerardo Argueta MD [1] Allergies Allergen Reactions Duloxetine Cymbalta [Duloxetine-fd&c Blue #2] Pollen Extracts Tramadol [2] Past Surgical History: Procedure Laterality Date KNEE SURGERY Right PROCEDURE: HISTORICAL KNEE SURGERY NECK SURGERY 2020 PROCEDURE: HISTORICAL NECK SURGERY; COMMENT: ACDF C5-6 and a right C6 foraminotomy for residual armpain ROTATOR CUFF REPAIR Right 03/24/2022 PROCEDURE: HISTORICAL ROTATOR CUFF REPAIR; COMMENT: Right shoulder arthroscopic rotator cuff repairand augmentation. subacromial decompression. distal clavicle resection. labral debridement on [3] No outpatient medications have been marked as taking for the 12/06/24 encounter (Office Visit) withGerardo Argueta MD. documented in this encounter Plan of Treatment Upcoming Encounters Date Type Department Care Team (Late st Contact Info) Description 01/03/2025 1:45 PM EST Procedure visit Orthopedic Surgery - [address] [phone] Gerardo Argueta MD [address] [place] [phone] documented as of this encounter Results * XR Knee 3 Views bilat (12/06/2024 1:57 PM EDT) Anatomical Region Laterality Modality Lower Extremities, Knee Bilateral Computed Radiography Narrative 12/06/2024 2:08 PM EDT X-rays December 06, 2024. Bilateral PA weightbearing views. Lateral views of both knees. [place] views of both knees. Narrowing of the medial compartment of the right knee with periarticular osteophytes. Small superior and inferior spurring of the lateral view of the right knee patella. No acute osseous abnormalities. Preservation of tibiofemoral compartments of the left knee. [place] view of both knees with no obvious periarticular osteophytes or significant loss of patellofemoral articular cartilage. us Gerardo Argueta MD IMG XR PROCEDURES Final Result documented in this encounter Visit Diagnoses Diagnosis Chronic pain of both knees- Primary Primary osteoarthritis of both knees documented in this encounter Care Teams Statistician Mathematical Relationship Specialty Start Date End Date Natalie Cavazos MD [address] [place] [address] PCP - General Internal Medicine 08/27/20 documented as of this encounter
--- NOTE | 2024-12-08 13:57 | A.SPINEOV_ITS ---
Vital Signs 12/08/24 14:01 Height 5 ft 3 in Weight 150 lb BMI 26.6 Intake Visit Reasons: consideration of SI joint fusion Intake Note: Ms. Rashid Ulrich is here today c/o low back pain. Program Director/Morning Show Host Required: No Allergies duloxetine (From CYMBALTA) Allergy (Severe, Verified 12/08/24 14:01) SEVERE DIARRHEA/DEHYDRATION tramadol (TRAMADOL) Allergy (Severe, Verified 12/08/24 14:01) SEVERE DIARRHEA/DEHYDRATION pollen Allergy (Unknown, Uncoded 09/25/24 19:18) unknown Physical Exam Vital Signs: BMI result Body Mass Index 26.6 Assessment & Plan Assessment & Plan (1) Chronic SI joint pain: Code(s): M53.3 - Sacrococcygeal disorders, not elsewhere classified; G89.29 - Other chronic pain Category: Medical Plan Dear Dr De Guzman. Thank you for referring Mrs Rashid Ulrich to our office today. She is a patient who is a 54-year-old with history of anterior cervical fusion by Dr. Rodriguez about 3 or 4 years ago, has history of anterior lumbar interbody fusion with Dr. Hurst many years ago, who presented in October to the emergency room with significant increase in her chronic left leg pain. She does not record any specific event that started it. Although she had had the symptoms intermittently from time to time, she had never felt this kind of pain before. Interestingly, it was associated with lower extremity edema. At the time she was treated with medication, referred for a follow-up. Subsequent MRIs showed some degenerative disc disease but no acute herniated disc to explain the symptoms. She was seen in your office in the symptoms were felt to be consistent with SI joint, so she was referred to Dr. Rodriguez for consideration of SI joint fusion. She did have an SI joint injection done a few months back for similar symptoms and she felt like it might have actually made the complaints worse. She takes sosc-sku-bvsvdbo medication to deal with it. She also has a history of fibromyalgia. She has been through physical therapy etc.. PMH: Anterior lumbar interbody fusion, anterior cervical fusion, overactive bladder, constipation, GERD, fracture repair of her right upper extremity Social hx: She does smoke cigarettes, no alcohol abuse or drug abuse reported. Medications: Vitamin D3, cyclobenzaprine, dicyclomine, Colace, Toviaz ER, fexofenadine, loratadine, Lyrica, vitamin B6 Allergies: Please see the [employer] list Physical exam: Awake alert oriented no acute distress, she is able to stand up out of a chair on her own, ambulate down the hallway without any obvious pain. She has motor examination with question of mild left tibialis weakness. She has pain with all range of motion of her left lower extremity. Positive JOSE CARLOS testing. Positive finger Virgil testing. Imaging review: Lumbar MRI done at [place] shows postsurgical changes at L5-S1, she has degenerative disc disease above her fusion but no obvious nerve compression or acute disc herniation that would explain the pain shooting down her leg. Impression: 54-year-old female with anterior lumbar interbody fusion done many years ago, presents now with acute lower extremity pain that started about 6 or 8 weeks ago without any specific provocative event, it seems to have calmed down a little bit. For whatever reason it was associated with significant swelling of her left lower extremity. That is seems to have gone away some as well. She still continues to have severe pain along the left side of her low back going down the back of her leg. She has a lot of difficulty sitting because of pain in the left butt cheek, as well as hard time lying down at night on her left side because of the pain. Her MRI shows some disc degeneration in the lumbar spine but nothing compressing a nerve that would explain radiculopathy. It does sound like it could be SI joint related based on its location, features and some of her exam findings.. Unfortunately she did not have a good response from the last injection with Dr. Yo, in fact she felt that may have made her slightly worse. I explained to her that in order for us to do SI joint fusion we would need her to have 2 sequential positive injections of at least 80% improvement before we could consider surgery. She is interested in seeing Dr. Yo again and doing another injections I will refer her back. If she has a positive response this time, the injection can be repeated again and then we can reassess for possible SI joint fusion. Thank you for allowing us to care for your patient. The total time spent with this visit with this patient was 45 minutes reviewing history, physical exam, lumbar imaging review, and implementation of treatment plan or further diagnostic testing Kal Rodriguez MD,PhD [facility] Orders: Referrals Physiatry Referral G89.29 - Other chronic pain, M53.3 - Sacrococcygeal disorders, not elsewhere classified Coding Level of Care Code New Pt Level 4 (81727) Diagnoses Chronic SI joint pain M53.3; G89.29
[2024-12-08 14:01] VITALS: BMI 26.6
--- OUTSIDE RECORDS SUMMARY | 2024-12-08 15:57 | XMS_ITS | Encounter Summary ---
Author Organization [employer] Address [address] [address] Care Team Providers Care Gas Prover Name Role Phone Natalie Cavazos MD Primary Care Provider Reason for Visit * Reason Onset Date Comments Med Refill 06/16/2024 Encounter Details Date Type Department Care Team ([facility] Contact Info) Description 06/16/2024 Telephone [facility] MED[facility]INE [address] [place] [address] Natalie Cavazos MD [address] [place] [address] Med Refill Social History Tobacco Use Types [...] tablet To be sent to: [facility] pharmacy documented in this encounter Plan of Treatment Upcoming Encounters Date Type Department Care Team ([facility] st Contact Info) Description 01/29/2025 2:30 PM EST Telemedicine [facility] 505 [place] [address] Erinn Hernández, MIKAYLA [address] [place] [address] documented as of this encounter Visit Diagnoses Not on filedocumented in this encounter Additional Health Concerns Assessment Noted Time PHQ-9 Depression Total Score: 11 07/10/2 024 2:03 PM EDT documented as of this encounter Care Teams Gas Prover Relationship Specialty Start Date End Date Natalie Cavazos MD [address] [place] [address] PCP - General Internal Medicine 02/15/18 documented as of this encounter
--- OUTSIDE RECORDS SUMMARY | 2024-12-08 15:57 | XMS_ITS | Encounter Summary ---
Author Organization [employer] Address [address] [address] Care Team Providers Care Practice Clinician Name Role Phone Natalie Cavazos MD Primary Care Provider [phone] Reason for Visit * Reason Onset Date Comments Med Refill 12/20/2023 Encounter Details Date Type Department Care Team ([facility] Contact Info) Description 12/20/2023 Telephone [facility] 230 [place] [address] Natalie Cavazos MD [address] [place] [address] Med Refill Social History Tobacco Use Types [...] sent to: [facility] [place], [place] - [address] [facility] documented in this encounter Plan of Treatment Upcoming Encounters Date Type Department Care Team (Late st Contact Info) Description 01/29/2025 2:30 PM EST Telemedicine [facility] 505 [place] [address] Erinn Hernández RN 505 [place] [address] documented as of this encounter Visit Diagnoses Not on filedocumented in this encounter Additional Health Concerns Assessment Noted Time PHQ-9 Depression Total Score: 11 024 2:03 PM EDT documented as of this encounter Care Teams Practice Clinician Relationship Specialty Start Date End Date Natalie Cavazos MD [address] [place] [address] PCP - General Internal Medicine 02/15/18 documented as of this encounter
--- OUTSIDE RECORDS SUMMARY | 2024-12-08 15:57 | XMS_ITS | Encounter Summary ---
Author Organization [employer] Address [address] [address] Care Team Providers Care National Insurance Officer Name Role Phone Natalie Cavazos MD Primary Care Provider Reason for Visit * Reason Onset Date Comments Medication Question 10/17/2024 Encounter Details Date Type Department Care Team ([facility] Contact Info) Description 10/17/2024 Telephone [facility] MED[facility]INE 230 [place] [address] Natalie Cavazos MD [address] [place] [address] Medication Question Social History Tobacco Use Types [...] MRI that is scheduled on 10/22 @ [facility] [place] documented in this encounter Plan of Treatment Upcoming Encounters Date Type Department Care Team ([facility] st Contact Info) Description 01/29/2025 2:30 PM EST Telemedicine [facility] & PEDS 505 [place] [address] Erinn Hernández, MIKAYLA [address] [place] [address] documented as of this encounter Visit Diagnoses Not on filedocumented in this encounter Additional Health Concerns Assessment Noted Time PHQ-9 Depression Total Score: 4 09/30/19 25 2:27 PM EDT documented as of this encounter Care Teams National Insurance Officer Relationship Specialty Start Date End Date Natalie Cavazos MD [address] [place] [address] PCP - General Internal Medicine 02/15/18 documented as of this encounter
--- OUTSIDE RECORDS SUMMARY | 2024-12-08 15:57 | XMS_ITS | Encounter Summary ---
Author Organization [facility] Address [address] [place] [address] Care Team Providers Care Abalone Fisherman Name Role Phone Natalie Cavazos MD Primary Care Provider [phone] Reason for Visit * Reason Onset Date Comments Durolane - R Knee 12/07/2024 Encounter Details Date Type Department Care Team ([facility] Contact Info) Description 12/07/2024 Telephone Orthopedic Surgery - [place] 160 [address] [facility] [address] [place] [address] Kendra Toledo MA Social History Tobacco Use Types Packs/Day Years [...] as of this encounter Progress Notes * Kendra Toledo MA - 12/08/2024 1:35 PM EDT Appt: 01/03 * Kendra Toledo MA - 12/08/2024 8:47 AM EDT Cruzolane approved. May process as a buy and bill. Auth#: [id number] Exp: 06/07/25 Called pt, no answer. LVM to call to schedule appt. If pt calls, please schedule Durolane inj for right knee with Dania. Thank you * Kendra Toledo MA - 12/07/2024 10:22 AM EDT Prior auth request and clinicals faxed to [facility] UR Dept at [phone]. Approval is pending. NOTE: Schedule w Dania. documented in this encounter Plan of Treatment Upcoming Encounters Date Type Department Care Team (Late st Contact Info) Description 01/03/2025 1:45 PM EST Procedure visit Orthopedic Surgery - [place] [address] [place] [phone] Gerardo Argueta MD [address] [place] [phone] documented as of this encounter Visit Diagnoses Not on filedocumented in this encounter Care Teams Abalone Fisherman Relationship Specialty Start Date End Date Natalie Cavazos MD [address] [place] [address] PCP - General Internal Medicine 08/27/20 documented as of this encounter
--- OUTSIDE RECORDS SUMMARY | 2024-12-08 15:57 | XMS_ITS | Encounter Summary ---
Author Organization [employer] Address [address] [address] Care Team Providers Care Crate Tier Name Role Phone Natalie Cavazos MD Primary Care Provider Reason for Visit * Reason Onset Date Comments Call back 11/09/2024 Encounter Details Date Type Department Care Team ([facility] Contact Info) Description 11/09/2024 Telephone [facility] [address] [place] [address] Natalie Cavazos MD [address] [place] [address] Call back Social History Tobacco Use Types Packs/Day Years [...] encounter Miscellaneous Notes * Telephone Encounter - Rancho Singh - 11/10/2024 8:43 AM EDT Tc from pt requesting call back regarding prior message. Contact pt at [phone] * Telephone Encounter - Edilma Suarez - 11/09/2024 10:42 AM EDT Tc from pt requesting an call back in regard of oxyCODONE-acetaminophen (Percocet) 10-325 MG tablet. Pt stated she do not understand why she only receive 30 tablet instead of the usually. Contact ;pt at [phone] Need children's minister documented in this encounter Plan of Treatment Upcoming Encounters Date Type Department Care Team (Late st Contact Info) Description 01/29/2025 2:30 PM EST Telemedicine [facility] MED & PEDS [address] [place] [address] Erinn Hernández, MIKAYLA [address] [place] [address] documented as of this encounter Visit Diagnoses Not on filedocumented in this encounter Additional Health Concerns Assessment Noted Time PHQ-9 Depression Total Score: 4 09/30/19 25 2:27 PM EDT documented as of this encounter Care Teams Crate Tier Relationship Specialty Start Date End Date Natalie Cavazos MD [address] [place] [address] PCP - General Internal Medicine 02/15/18 documented as of this encounter
--- OUTSIDE RECORDS SUMMARY | 2024-12-08 15:57 | XMS_ITS | Encounter Summary ---
Author Organization [employer] Address [address] [address] Care Team Providers Care Veterinary Radiologist Name Role Phone Natalie Cavazos MD Primary Care Provider Reason for Visit * Reason Onset Date Comments Med Refill 01/03/2024 Encounter Details Date Type Department Care Team ([facility] Contact Info) Description 01/03/2024 Telephone [facility] [address] [place] [address] Natalie Cavazos MD [address] [place] [address] Med Refill Social History Tobacco Use Types [...] immediate release tablet To be sent to: [facility] documented in this encounter Plan of Treatment Upcoming Encounters Date Type Department Care Team (Late st Contact Info) Description 01/29/2025 2:30 PM EST Telemedicine [facility] [address] [place] [address] Erinn Hernández, MIKAYLA 505 [place] [address] documented as of this encounter Visit Diagnoses Not on filedocumented in this encounter Additional Health Concerns Assessment Noted Time PHQ-9 Depression Total Score: 11 024 2:03 PM EDT documented as of this encounter Care Teams Veterinary Radiologist Relationship Specialty Start Date End Date Natalie Cavazos MD [address] [place] [phone] PCP - General Internal Medicine 02/15/18 documented as of this encounter
--- OUTSIDE RECORDS SUMMARY | 2024-12-08 15:57 | XMS_ITS | Encounter Summary ---
Author Organization [employer] Address [address] [address] Care Team Providers Care Chop Saw Operator Name Role Phone Natalie Cavazos MD Primary Care Provider Reason for Visit * Reason Comments Med Refill Encounter Details Date Type Department Care Team ([facility] Contact Info) Description 12/05/2024 Refill [facility] PEDS [address] [place], [place] [phone] Natalie Cavazos MD [address] [place] [address] Failed back surgical syndrome; Lumbosacral radiculopathy; Chronic pain syndrome Social History Tobacco Use [...] Upcoming Encounters Date Type Department Care Team ([facility] st Contact Info) Description 01/29/2025 2:30 PM EST Telemedicine [facility] MED & PEDS [address] [place] [address] Erinn Hernández RN [address] [place] [address] documented as of this encounter Visit Diagnoses Diagnosis Failed back surgical syndrome Lumbosacral radiculopathy Thoracic or lumbosacral neuritis or radiculitis, unspecified Chronic pain syndrome documented in this encounter Additional Health Concerns Assessment Noted Time PHQ-9 Depression Total Score: 4 09/30/19 25 2:27 PM EDT documented as of this encounter Care Teams Chop Saw Operator Relationship Specialty Start Date End Date Natalie Cavazos MD [address] [place] [address] PCP - General Internal Medicine 02/15/18 documented as of this encounter
--- OUTSIDE RECORDS SUMMARY | 2024-12-08 15:57 | XMS_ITS | Encounter Summary ---
Author Organization [email or web address] Address [address] [place] [address] [place], [place] [address] Care Team Providers Care Decision Support Analyst Name Role Phone Natalie Cavazos MD Primary Care Provider Encounter Details Date Type Department Care Team ([facility] Contact Info) Description 08/24/2022 Abstract [facility] MED & PEDS [address] [place], [place] [phone] Natalie Cavazos MD [address] [place] [address] Social History Tobacco Use Types Packs/Day Years [...] Upcoming Encounters Date Type Department Care Team ([facility] st Contact Info) Description 01/29/2025 2:30 PM EST Telemedicine [facility] MED & PEDS [address] [place] [address] Erinn Hernández, MIKAYLA [address] [place] [address] documented as of this encounter Visit Diagnoses Not on filedocumented in this encounter Additional Health Concerns Assessment Noted Time PHQ-9 Depression Total Score: 22 023 3:00 PM EDT documented as of this encounter Care Teams Decision Support Analyst Relationship Specialty Start Date End Date Natalie Cavazos MD [address] [place] [address] PCP - General Internal Medicine 02/15/18 documented as of this encounter
--- OUTSIDE RECORDS SUMMARY | 2024-12-08 15:57 | XMS_ITS | Encounter Summary ---
Author Organization [employer] Address [address] [address] Care Team Providers Care Hydraulic Hammer Operator Name Role Phone Natalie Cavazos MD Primary Care Provider Reason for Visit * Reason Onset Date Comments Med Refill 11/04/2023 Encounter Details Date Type Department Care Team ([facility] Contact Info) Description 11/04/2023 Telephone [facility] MEDICINE 230 [place] [address] Natalie Cavazos MD 505 [place] [address] Med Refill Social History Tobacco Use Types [...] sent to: [facility] - [place], [place] - [address] [facility] documented in this encounter Plan of Treatment Upcoming Encounters Date Type Department Care Team (Late st Contact Info) Description 01/29/2025 2:30 PM EST Telemedicine [facility] MED & PEDS 505 [place] [address] Erinn Hernández, MIKAYLA 505 [place] [address] documented as of this encounter Visit Diagnoses Not on filedocumented in this encounter Additional Health Concerns Assessment Noted Time PHQ-9 Depression Total Score: 11 024 2:03 PM EDT documented as of this encounter Care Teams Hydraulic Hammer Operator Relationship Specialty Start Date End Date Natalie Cavazos MD [address] [place] [address] PCP - General Internal Medicine 02/15/18 documented as of this encounter
--- OUTSIDE RECORDS SUMMARY | 2024-12-08 15:57 | XMS_ITS | Encounter Summary ---
Author Organization [employer] Address [address] [address] Care Team Providers Care Plastic Dolls Mold Filler Name Role Phone Natalie Cavazos MD Primary Care Provider Reason for Visit * Reason Onset Date Comments Med Refill 11/21/2024 Encounter Details Date Type Department Care Team ([facility] Contact Info) Description 11/21/2024 Telephone [facility] MEDICINE 230 [place] [address] Natalie Cavazos MD 505 [place] [address] Med Refill Social History Tobacco Use Types [...] * Telephone Encounter - Ced Mike - 11/21/2024 11:58 AM EDT TC from pt requesting medication refill. Medications needing refill: oxyCODONE (Roxicodone) 5 MG immediate release tablet To be sent to: [facility] - [place], [place] - 230 [facility] documented in this encounter Plan of Treatment Upcoming Encounters Date Type Department Care Team ([facility] st Contact Info) Description 01/29/2025 2:30 PM EST Telemedicine [facility] MED & PEDS 505 [place] [address] Erinn Hernández, RN 505 [place] [address] documented as of this encounter Visit Diagnoses Not on filedocumented in this encounter Additional Health Concerns Assessment Noted Time PHQ-9 Depression Total Score: 4 09/30/19 25 2:27 PM EDT documented as of this encounter Care Teams Plastic Dolls Mold Filler Relationship Specialty Start Date End Date Natalie Cavazos MD [address] [place] [address] PCP - General Internal Medicine 02/15/18 documented as of this encounter
--- OUTSIDE RECORDS SUMMARY | 2024-12-08 15:57 | XMS_ITS | Encounter Summary ---
Author Organization [employer] Address [address] [address] Care Team Providers Care Spanish Lecturer Name Role Phone Natalie Cavazos MD Primary Care Provider Reason for Visit * Reason Onset Date Comments Med Refill 10/11/2023 Encounter Details Date Type Department Care Team ([facility] Contact Info) Description 10/11/2023 Telephone [facility] MEDICINE 230 [place] [address] Natalie Cavazos MD 505 [place] [address] Med Refill Social History Tobacco Use Types [...] immediate release tablet To be sent to: [facility] - [place], [place] - 230 [facility] documented in this encounter Plan of Treatment Upcoming Encounters Date Type Department Care Team (Late st Contact Info) Description 01/29/2025 2:30 PM EST Telemedicine [facility] MED & PEDS 505 [place] [address] Erinn Hernández, MIKAYLA 505 [place] [address] documented as of this encounter Visit Diagnoses Not on filedocumented in this encounter Additional Health Concerns Assessment Noted Time PHQ-9 Depression Total Score: 11 024 2:03 PM EDT documented as of this encounter Care Teams Spanish Lecturer Relationship Specialty Start Date End Date Natalie Cavazos MD [address] [place] [address] PCP - General Internal Medicine 02/15/18 documented as of this encounter
--- OUTSIDE RECORDS SUMMARY | 2024-12-08 15:57 | XMS_ITS | Encounter Summary ---
Author Organization [employer] Address [address] [address] Care Team Providers Care Service Trainer Name Role Phone Natalie Cavazos MD Primary Care Provider [phone] Reason for Visit * Reason Onset Date Comments Med Refill 10/26/2024 Encounter Details Date Type Department Care Team ([facility] Contact Info) Description 10/26/2024 Telephone [facility] MEDICINE 230 [place] [address] Natalie Cavaozs MD 505 [place] [address] Med Refill Social History Tobacco Use Types [...] * Telephone Encounter - Ольга Schaffer - 10/27/2024 2:50 PM EDT Tc from pt requesting a call back states she is in a lot of pain , she has no more oxycodone Contact pt at [phone] (kazakh) * Telephone Encounter - Edilma Suarez - 10/26/2024 12:13 PM EDT Tc from pt requesting a call back. Pt stated she has a question. No further details was given. Contact pt at [phone] documented in this encounter Plan of Treatment Upcoming Encounters Date Type Department Care Team ([facility] st Contact Info) Description 01/29/2025 2:30 PM EST Telemedicine [facility] MED & PEDS 505 [place] [address] Erinn Hernández, MIKAYLA 505 [place] [address] documented as of this encounter Visit Diagnoses Not on filedocumented in this encounter Additional Health Concerns Assessment Noted Time PHQ-9 Depression Total Score: 4 09/30/19 25 2:27 PM EDT documented as of this encounter Care Teams Service Trainer Relationship Specialty Start Date End Date Natalie Cavazos MD 505 [place] [address] PCP - General Internal Medicine 02/15/18 documented as of this encounter
--- OUTSIDE RECORDS SUMMARY | 2024-12-08 15:57 | XMS_ITS | Encounter Summary ---
Author Organization [employer] Address 75 [facility] [address] [place] [address] Care Team Providers Care Agricultural Economics Professor Name Role Phone Natalie Cavazos MD Primary Care Provider [phone] Encounter Details Date Type Department Care Team ([facility] Contact Info) Description 12/06/2024 Orders Only [facility] 230 [place] [address] Provider, MD Nori Social History Tobacco Use [...] Info) Description 01/29/2025 2:30 PM EST Telemedicine [facility] MED & PEDS 505 [place] [address] Erinn Hernández, MIKAYLA 505 [place] [address] documented as of this encounter Procedures Procedure Name Priority Date/Time Associated Diagnosis Comments XR KNEE 3 VIEWS BILATERAL Routine 12/06/2024 4:06 PM EDT documented in this encounter Results * XR Knee 3 Views Bilateral (12/06/2024 4:06 PM EDT) Anatomical Region Laterality Modality Lower Extremities, Knee Bilateral Radiogra phic Imaging us Historical Provider MD XIE XR PROCEDURES Final R esult documented in this encounter Visit Diagnoses Not on filedocumented in this encounter Additional Health Concerns Assessment Noted Time PHQ-9 Depression Total Score: 4 09/30/19 25 2:27 PM EDT documented as of this encounter Care Teams Agricultural Economics Professor Relationship Specialty Start Date End Date Natalie Cavazos MD [address] [place] [address] PCP - General Internal Medicine 02/15/18 documented as of this encounter
--- OUTSIDE RECORDS SUMMARY | 2024-12-08 15:57 | XMS_ITS | Encounter Summary ---
Author Organization [employer] Address 75 [facility] 7 [place] [address] Care Team Providers Care Internal Affairs Commander Name Role Phone Natalie Cavazos MD Primary Care Provider [phone] Encounter Details Date Type Department Care Team ([facility] Contact Info) Description 10/17/2024 Orders Only [facility] MED & PEDS 505 [place], [place] [id number] Natalie Cavazos MD 505 [place] [address] Mixed anxiety and depressive disorder (Primary Dx) [...] 01/29/2025 2:30 PM EST Telemedicine [facility] MED & PEDS 505 [place] [address] Erinn Hernández, MIKAYLA 505 [place] [address] documented as of this encounter Visit Diagnoses Diagnosis 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
--- OUTSIDE RECORDS SUMMARY | 2024-12-08 15:57 | XMS_ITS | Encounter Summary ---
Author Organization [employer] Address [address] [address] Care Team Providers Care Test Baker Name Role Phone Natalie Cavazos MD Primary Care Provider Reason for Visit * Reason Onset Date Comments Med Refill 07/13/2024 Encounter Details Date Type Department Care Team ([facility] Contact Info) Description 07/13/2024 Telephone [facility] MEDICINE 230 [place] [address] Natalie Cavazos MD 505 [place] [address] Med Refill Social History Tobacco Use Types [...] immediate release tablet To be sent to: [facility] - [place], [place] - 230 [facility] documented in this encounter Plan of Treatment Upcoming Encounters Date Type Department Care Team ([facility] st Contact Info) Description 01/29/2025 2:30 PM EST Telemedicine [facility] MED & PEDS 505 [place] [address] Erinn Hernández, RN 505 [place] [address] documented as of this encounter Visit Diagnoses Not on filedocumented in this encounter Additional Health Concerns Assessment Noted Time PHQ-9 Depression Total Score: 11 024 2:03 PM EDT documented as of this encounter Care Teams Test Baker Relationship Specialty Start Date End Date Natalie Cavazos MD [address] [place] [address] PCP - General Internal Medicine 02/15/18 documented as of this encounter
--- OUTSIDE RECORDS SUMMARY | 2024-12-08 15:57 | XMS_ITS | Encounter Summary ---
Author Organization [employer] Address [address] [address] Care Team Providers Care Weight Trainer Name Role Phone Natalie Cavazos MD Primary Care Provider [phone] Reason for Visit * Reason Comments Med Refill Encounter Details Date Type Department Care Team ([facility] st Contact Info) Description 08/06/2023 Refill [facility] MEDICINE 230 [place] [address] Natalie Cavazos MD 505 [place] [address] Chronic pain syndrome Social History Tobacco Use [...] Description 01/29/2025 2:30 PM EST Telemedicine [facility] MED & PEDS 505 [place] [address] Erinn Hernández, MIKAYLA 505 [place] [address] documented as of this encounter Visit Diagnoses Diagnosis Chronic pain syndrome documented in this encounter Additional Health Concerns Assessment Noted Time PHQ-9 Depression Total Score: 22 023 3:00 PM EDT documented as of this encounter Care Teams Weight Trainer Relationship Specialty Start Date End Date Natalie Cavazos MD 505 [place] [address] PCP - General Internal Medicine 02/15/18 documented as of this encounter
--- OUTSIDE RECORDS SUMMARY | 2024-12-08 15:57 | XMS_ITS | Encounter Summary ---
Author Organization [employer] Address [address] [address] Care Team Providers Care Boat Painter Name Role Phone Natalie Cavazos MD Primary Care Provider Reason for Visit * Reason Onset Date Comments Med Refill 08/11/2024 Encounter Details Date Type Department Care Team ([facility] Contact Info) Description 08/11/2024 Telephone [facility] MEDICINE 230 [place] [address] Natalie Cavazos MD 505 [place] [address] Med Refill Social History Tobacco Use Types [...] immediate release tablet To be sent to: [facility] [place] - 230 [facility] documented in this encounter Plan of Treatment Upcoming Encounters Date Type Department Care Team ([facility] st Contact Info) Description 01/29/2025 2:30 PM EST Telemedicine [facility] [place] [address] Erinn Hernández, RN 505 [place] [address] documented as of this encounter Visit Diagnoses Not on filedocumented in this encounter Additional Health Concerns Assessment Noted Time PHQ-9 Depression Total Score: 11 024 2:03 PM EDT documented as of this encounter Care Teams Boat Painter Relationship Specialty Start Date End Date Natalie Cavazos MD 505 [place] [address] PCP - General Internal Medicine 02/15/18 documented as of this encounter
--- OUTSIDE RECORDS SUMMARY | 2024-12-08 15:57 | XMS_ITS | Encounter Summary ---
Author Organization [employer] Address [address] [address] Care Team Providers Care Collet Making Machine Operator Name Role Phone Natalie Cavazos MD Primary Care Provider Reason for Visit * Reason Onset Date Comments Med Refill 12/31/2022 Encounter Details Date Type Department Care Team ([facility] Contact Info) Description 12/31/2022 Telephone [facility] MEDICINE 230 [place] [address] Natalie Cavazos MD 505 [place] [address] Med Refill Social History Tobacco Use Types [...] oxyCODONE (Roxicodone) 5 MG immediate release tablet [facility] - [place], [place] - 230 [facility] documented in this encounter Plan of Treatment Upcoming Encounters Date Type Department Care Team ([facility] st Contact Info) Description 01/29/2025 2:30 PM EST Telemedicine [facility] MED & PEDS 505 [place] [address] Erinn Hernández RN 505 [place] [address] documented as of this encounter Visit Diagnoses Not on filedocumented in this encounter Additional Health Concerns Assessment Noted Time PHQ-9 Depression Total Score: 22 023 3:00 PM EDT documented as of this encounter Care Teams Collet Making Machine Operator Relationship Specialty Start Date End Date Natalie Cavazos MD 505 [place] [address] PCP - General Internal Medicine 02/15/18 documented as of this encounter
--- OUTSIDE RECORDS SUMMARY | 2024-12-08 15:57 | XMS_ITS | Encounter Summary ---
Author Organization [employer] Address 75 [facility] 7 [place] [address] Care Team Providers Care Housemaid Name Role Phone Natalie Cavazos MD Primary Care Provider [phone] Encounter Details Date Type Department Care Team ([facility] Contact Info) Description 08/30/2024 Orders Only [facility] 230 [place] [address] Provider, MD Nori Social History Tobacco Use [...] Info) Description 01/29/2025 2:30 PM EST Telemedicine [facility] MED & PEDS 505 [place] [address] Erinn Hernández RN 505 [place] [address] documented as of this encounter Procedures Procedure [...] documented as of this encounter Care Teams Housemaid Relationship Specialty Start Date End Date Natalie Cavazos MD 505 [place] [address] PCP - General Internal Medicine 02/15/18 documented as of this encounter
--- OUTSIDE RECORDS SUMMARY | 2024-12-08 15:57 | XMS_ITS | Encounter Summary ---
Author Organization [employer] Address [address] [place] [address], [place] [address] Care Team Providers Care Curriculum Director Name Role Phone Natalie Cavazos MD Primary Care Provider Encounter Details Date Type Department Care Team ([facility] Contact Info) Description 08/24/2022 Abstract [facility] MED & PEDS 505 [place], [place] [phone] Natalie Cavazos MD 505 [place] [address] Social History Tobacco Use Types Packs/Day Years [...] Upcoming Encounters Date Type Department Care Team ([facility] st Contact Info) Description 01/29/2025 2:30 PM EST Telemedicine [facility] MED & PEDS 505 [place] [address] Erinn Hernández, MIKAYLA 505 [place] [address] documented as of this encounter Visit Diagnoses Not on filedocumented in this encounter Additional Health Concerns Assessment Noted Time PHQ-9 Depression Total Score: 22 023 3:00 PM EDT documented as of this encounter Care Teams Curriculum Director Relationship Specialty Start Date End Date Natalie Cavazos MD 505 [place] [address] PCP - General Internal Medicine 02/15/18 documented as of this encounter
--- OUTSIDE RECORDS SUMMARY | 2024-12-08 15:57 | XMS_ITS | Encounter Summary ---
Author Organization [employer] Address [address] [address] Care Team Providers Care Police Captain Name Role Phone Natalie Cavazos MD Primary Care Provider Reason for Visit * Reason Onset Date Comments Med Refill 11/30/2023 Encounter Details Date Type Department Care Team ([facility] Contact Info) Description 11/30/2023 Telephone [facility] MEDICINE 230 [place] [address] Natalie Cavazos MD 505 [place] [address] Med Refill Social History Tobacco Use Types [...] immediate release tablet To be sent to: [facility] - [place], [place] - 230 [facility] documented in this encounter Plan of Treatment Upcoming Encounters Date Type Department Care Team (Late st Contact Info) Description 01/29/2025 2:30 PM EST Telemedicine [facility] MED & PEDS 505 [facility] [place] [address] Erinn Hernández, MIKAYLA 505 [place] [address] documented as of this encounter Visit Diagnoses Not on filedocumented in this encounter Additional Health Concerns Assessment Noted Time PHQ-9 Depression Total Score: 11 024 2:03 PM EDT documented as of this encounter Care Teams Police Captain Relationship Specialty Start Date End Date Natalie Cavazos MD [address] [place] [address] PCP - General Internal Medicine 02/15/18 documented as of this encounter
--- OUTSIDE RECORDS SUMMARY | 2024-12-08 15:57 | XMS_ITS | Clinical Summary ---
Author Organization 175 [facility] Address [address] [place] [address] Phone Care Team Providers Care Live Study Manager Name Role Phone Natalie Cavazos MD Primary Care Provider [phone] Allergies Active Allergy Reactions Criticality Noted Date Comments Duloxetine 09/02/2020 Cymbalta [Duloxetine-fd&c Blue #2] Pollen Extracts 11/24/2023 Tramadol 09/02/2020 Medications pregabalin (LYRICA) 300 mg capsule Take 300 mg by mouth 2 times daily. Active betamethasone valerate (VALISONE) 0.1 % ointment APPLY TOPICALLY TO THE AFFECTED AREA(S) TWICE DAILY IN THE MORNING AND AT BEDTIME NEEDED DRY SKIN 09/22/19 25 Active blood sugar diagnostic (FreeStyle Lite Strips) test strip USE DIRECTED TO TEST BLOOD SUGAR EVERY DAY 11/15/19 25 Active cholecalcifero l (VITAMIN D-3) 25 mcg (1,000 unit) tablet Take 1 tablet (1,000 Units total) by mouth 1 (one) time each day. Active docusate sodium (COLACE) 100 mg capsule PATIENT REPORTS PURCHASING OTC Active fesoterodine (Toviaz) 8 mg tablet extended release 24 hr Take 8 mg by mouth daily. 08/18/19 24 Active lidocaine (LIDODERM) 5 % patch APPLY 1 PATCH TO RIGHT SHOULDER AND 1 PATCH TO NECK, LEAVE ON FOR 12 HOURS THEN REMOVE FOR 12 HOURS Active loratadine (CLARITIN) 10 mg tablet Take 1 tablet (10 mg total) by mouth 1 (one) time each day. Active naloxone (NARCAN) 4 mg/0.1 mL nasal spray Administer 1 each (4 mg total) into affected nostril(s). 10/13/19 Active nicotine (NICODERM CQ) 14 mg/24 hr 1 patch 1 (one) time each day. 11/15/19 Active oxyCODONE (ROXICODONE) 5 mg immediate release tablet Take 2 tablets (10 mg total) by mouth every 6 hours as needed. 11/24/19 Active polyvinyl alcohol (ARTIFICIAL TEARS) 1.4 % ophthalmic solution one drop 3 to 4 times per day in both eyes 01/23/20 Active UNABLE TO FIND Nutritional Supplements (VITAMIN D BOOSTER OR) Take by mouth. Discontinued omeprazole (PriLOSEC) [address] capsule Take 10 mg by mouth daily. Discontinued oxyCODONE-acet aminophen (PERCOCET) 5-325 mg per tablet Take 1 tablet by mouth every 4 hours as needed. Discontinued dicyclomine (BENTYL) 20 mg tablet TAKE 1 TABLET BY MOUTH 4 TIMES A DAY NEEDED FOR ABDOMINAL PAIN FOR 30 DAYS 09/29/19 Discontinued hydrOXYzine pamoate (VISTARIL) 50 mg capsule To take 1 capsule 1 hour prior to the procedure. May take another capsule 1 hour later if needed. 10/18/19 Discontinued venlafaxine (EFFEXOR) 37.5 mg tablet Take 1 tablet (37.5 mg total) by mouth 2 times daily. 11/18/19 Discontinued omeprazole (PriLOSEC) [address] capsule Take 1 capsule (20 mg total) by mouth 1 (one) time each day. 08/24/19 Discontinued Active Problems Problem Noted Date Diagnosed Date Sacroiliitis, not elsewhere classified (CMS/[facility] V24) 12/01/2024 Assessment & Plan (12/01/2024 6:44 PM EDT): I discussed the imaging in detail with Ms. Rashid Ulrich and I believe she is symptomatic from left sacroiliitis and not a lumbar radiculopathy or radiculitis. This is not uncommon after an L5-S1 fusion and hers was many years ago. Unfortunately, she not see any relief after a left SI joint injection in June. We discussed possibly repeating the injection and trying an SI belt versus an SI fusion. She did not wish to pursue further pain management and would like to proceed with something more definitive. I will refer her to Dr. Rodriguez to consider a left SI Fuse. Primary localized osteoarthrosis of left lower l eg 01/21/2024 Chronic pain of both knees 01/21/2024 Bilateral carpal tunnel syndrome 07/14/2022 DDD (degenerative disc disease), cervical 2021 Encounters Date Type Department Care Team Description 12/07/2024 Telephone Orthopedic Surgery [facility] [address] [facility] 160 [place] [phone] Kendra Toledo MA 12/06/2024 2:00 PM EDT Office Visit Orthopedic [facility] 160 [address] [facility] 160 [place] [phone] Gerardo Argueta MD Chronic pain of both knees (Primary Dx); Primary osteoarthritis of both knees 12/01/2024 1:15 PM EDT Office Visit Neurosurgery [facility] 175 [facility] [address] [place] [address] Lesa Jacobs MD Sacroiliitis, not elsewhere classified (CMS/[facility] V24) (Primary Dx) from Last 3 Months Surgical History Surgery [...] DX:Fibromyalgia Effusion of neck DX:Effusion of neck Depression Anxiety History of back surgery H/O arthroscopic knee surgery ri ght Social History Tobacco Use Types Packs/Day Years [...] - Inhaled Oxygen Concentration - - Weight 67.6 kg (149 lb) 12/01/2024 1:49 PM EDT Height 160 cm (5' 3 ) 12/01/2024 1:49 PM EDT Body Mass Index 26.39 12/01/2024 1:49 PM EDT Plan of Treatment Upcoming Encounters Date Type Department Care Team (Late st Contact Info) Description 01/03/2025 1:45 PM EST Procedure visit Orthopedic Surgery - [place] [address] [place] [address] [address] [place] [phone] Gerardo Argueta MD [address] [place] [phone] Health Maintenance Due Date Last Done Comments Breast Cancer Screening 1970 Colorectal Cancer Screening: Colonoscopy 1970 Cervical Cancer Screening: Pap Smear 07/21/2014 07/22/2011 Cholesterol Screening (Lipid Panel) 01/25/2022 HIV Screening 01/25/2022 Hepatitis C Screening 01/25/2022 Social Influencers of Health Screening 01/25/2022 Depression Screening 02/16/2024 COVID-19 Vaccine ( season) 2024 01/21/2023, 05/09/2021, 05/27/2020 DTaP,Tdap,and Td Vaccines (3 - Td or Tdap) 12/10/2025 12/11/2015, 08/09/2011 RSV Immunization Adult Patients (1 - 1-dose 75+ series) 2043 Zoster Vaccines Completed 09/18/2021, 07/10/2021 Hepatitis B Vaccines Completed 11/12/2022, 09/11/19 23 Influenza Vaccine Completed 11/14/2024, , 11/11/2021, Additional history exists Pneumococcal Vaccine: 50+ Years Completed 11/14/2024, 07/12/2016 HIB Vaccines Aged Out No longer eligi [...] Associated Diagnosis Comments XR KNEE 3 VIEWS BILAT Routine 12/06/2024 1:57 PM EDT Chronic pain of both knees PAP SMEAR Routine 07/22/2011 from Last 3 Months or Most Recently Relevant to Health Maintenance Results * XR Knee 3 Views bilat (12/06/2024 1:57 PM EDT) Anatomical Region Laterality Modality Lower Extremities, Knee Bilateral Computed Radiography Narrative 12/06/2024 2:08 PM EDT X-rays December 06, 2024. Bilateral PA weightbearing views. Lateral views of both knees. La Grulla views of both knees. Narrowing of the medial compartment of the right knee with periarticular osteophytes. Small superior and inferior spurring of the lateral view of the right knee patella. No acute osseous abnormalities. Preservation of tibiofemoral compartments of the left knee. La Grulla view of both knees with no obvious periarticular osteophytes or significant loss of patellofemoral articular cartilage. us Gerardo Argueta MD IMG XR PROCEDURES Final Result * Pap Smear (07/22/2011) Pap smear No Interpretation , Abstracted Historical Provider HEALTH MAINTENANCE Final Result from Last 3 Months or Most Recently Relevant to Health Maintenance Insurance MEDICAID - [place] Care Teams Live Study Manager Relationship Specialty Start Date End Date Natalie Cavazos MD [address] [place] [address] PCP - General Internal Medicine 08/27/20
--- OUTSIDE RECORDS SUMMARY | 2024-12-08 15:57 | XMS_ITS | Encounter Summary ---
Author Organization [employer] Address [address] [address] Care Team Providers Care Data Integrity Analyst Name Role Phone Natalie Cavazos MD Primary Care Provider Reason for Visit * Reason Onset Date Comments Call Back Request 08/30/2023 Encounter Details Date Type Department Care Team ([facility] Contact Info) Description 08/30/2023 Telephone [facility] MEDICINE 230 [place] [address] Natalie Cavazos MD 505 [place] [address] Call Back Request Social History Tobacco Use [...] Upcoming Encounters Date Type Department Care Team ([facility] st Contact Info) Description 01/29/2025 2:30 PM EST Telemedicine [facility] CHC MED & PEDS 505 [place] [address] Erinn Hernández, MIKAYLA 505 [place] [address] documented as of this encounter Visit Diagnoses Not on filedocumented in this encounter Additional Health Concerns Assessment Noted Time PHQ-9 Depression Total Score: 11 024 2:03 PM EDT documented as of this encounter Care Teams Data Integrity Analyst Relationship Specialty Start Date End Date Natalie Cavazos MD 505 [place] [address] PCP - General Internal Medicine 02/15/18 documented as of this encounter
--- OUTSIDE RECORDS SUMMARY | 2024-12-08 15:57 | XMS_ITS | Encounter Summary ---
Author Organization [employer] Address [address] [address] Care Team Providers Care Ocean Lifeguard Name Role Phone Natalie Cavazos MD Primary Care Provider Reason for Visit * Reason Onset Date Comments Med Refill 06/02/2022 Encounter Details Date Type Department Care Team ([facility] Contact Info) Description 06/02/2022 Telephone [facility] MEDICINE 230 [place] [address] Natalie Cavazos MD 505 [place] [address] Med Refill Social History Tobacco Use Types [...] Info) Description 01/29/2025 2:30 PM EST Telemedicine [facility] MED & PEDS 505 [place] [address] Erinn Hernández RN 505 [place] [address] documented as of this encounter Visit Diagnoses Not on filedocumented in this encounter Additional Health Concerns Assessment Noted Time PHQ-9 Depression Total Score: 16 04/09/ 023 3:14 PM EST documented as of this encounter Care Teams Ocean Lifeguard Relationship Specialty Start Date End Date Natalie Cavazos MD 505 [place] [address] PCP - General Internal Medicine 02/15/18 documented as of this encounter
--- OUTSIDE RECORDS SUMMARY | 2024-12-08 15:57 | XMS_ITS | Encounter Summary ---
Author Organization [employer] Address 75 [facility] 7 [place] [address] Care Team Providers Care Waste Oil Pumper Name Role Phone Natalie Cavazos MD Primary Care Provider [phone] Encounter Details Date Type Department Care Team ([facility] Contact Info) Description 05/24/2024 Orders Only [facility] 230 [place] [address] Provider, MD Nori Social History Tobacco Use [...] Info) Description 01/29/2025 2:30 PM EST Telemedicine [facility] CHC MED & PEDS 505 [place] [address] Erinn Hernández RN 505 [place] [address] documented as of this encounter Procedures Procedure [...] as of this encounter Care Teams Waste Oil Pumper Relationship Specialty Start Date End Date Natalie Cavazos MD 505 [place] [address] PCP - General Internal Medicine 02/15/18 documented as of this encounter
--- OUTSIDE RECORDS SUMMARY | 2024-12-08 15:57 | XMS_ITS | Encounter Summary ---
Author Organization [employer] Address [address] [address] Care Team Providers Care Communications Electrician Supervisor Name Role Phone Natalie Cavazos MD Primary Care Provider Reason for Visit * Reason Onset Date Comments Med Refill 07/08/2023 Encounter Details Date Type Department Care Team ([facility] Contact Info) Description 07/08/2023 Telephone [facility] MEDICINE 230 [place] [address] Natalie Cavazos MD 505 [place] [address] Med Refill Social History Tobacco Use Types [...] immediate release tablet To be sent to: [facility] Pharm[facility] documented in this encounter Plan of Treatment Upcoming Encounters Date Type Department Care Team (Late st Contact Info) Description 01/29/2025 2:30 PM EST Telemedicine [facility] CHC MED & PEDS 505 [place] [address] Erinn Hernández RN 505 [place] [address] documented as of this encounter Visit Diagnoses Not on filedocumented in this encounter Additional Health Concerns Assessment Noted Time PHQ-9 Depression Total Score: 22 023 3:00 PM EDT documented as of this encounter Care Teams Communications Electrician Supervisor Relationship Specialty Start Date End Date Natalie Cavazos MD 505 [place] [address] PCP - General Internal Medicine 02/15/18 documented as of this encounter
--- OUTSIDE RECORDS SUMMARY | 2024-12-08 15:57 | XMS_ITS | Encounter Summary ---
Author Organization [employer] Address [address] [address] Care Team Providers Care Applications Systems Engineer Name Role Phone Natalie Cavazos MD Primary Care Provider [phone] Reason for Visit * Reason Onset Date Comments Med Refill 09/27/2023 Encounter Details Date Type Department Care Team ([facility] Contact Info) Description 09/27/2023 Telephone [facility] MEDICINE 230 [place] [address] Natalie Cavazos MD 505 [place] [address] Med Refill Social History Tobacco Use Types [...] immediate release tablet To be sent to: [facility] - [place], [place] - 230 [facility] documented in this encounter Plan of Treatment Upcoming Encounters Date Type Department Care Team (Late st Contact Info) Description 01/29/2025 2:30 PM EST Telemedicine [facility] MED & PEDS 505 [place] [address] Erinn Hernández, MIKAYLA 505 [place] [address] documented as of this encounter Visit Diagnoses Not on filedocumented in this encounter Additional Health Concerns Assessment Noted Time PHQ-9 Depression Total Score: 11 024 2:03 PM EDT documented as of this encounter Care Teams Applications Systems Engineer Relationship Specialty Start Date End Date Natalie Cavazos MD [address] [place] [address] PCP - General Internal Medicine 02/15/18 documented as of this encounter
--- OUTSIDE RECORDS SUMMARY | 2024-12-08 15:57 | XMS_ITS | Encounter Summary ---
Author Organization [employer] Address 75 [facility] 7 [place] [address] Care Team Providers Care Dry Molder Name Role Phone Natalie Cavazos MD Primary Care Provider [phone] Encounter Details Date Type Department Care Team ([facility] Contact Info) Description 09/25/2024 Orders Only [facility] CHC MED & PEDS 505 [place], [place] [phone] Natalie Cavazos MD 505 [place] [address] Chronic pain syndrome Social History Tobacco Use [...] Upcoming Encounters Date Type Department Care Team ([facility] st Contact Info) Description 01/29/2025 2:30 PM EST Telemedicine [facility] CHC MED & PEDS 505 [place] [address] Erinn Hernández, MIKAYLA 505 [place] [address] documented as of this encounter Visit Diagnoses Diagnosis Chronic pain syndrome documented in this encounter Additional Health Concerns Assessment Noted Time PHQ-9 Depression Total Score: 11 024 2:03 PM EDT documented as of this encounter Care Teams Dry Molder Relationship Specialty Start Date End Date Natalie Cavazos MD 505 [place] [address] PCP - General Internal Medicine 02/15/18 documented as of this encounter
--- OUTSIDE RECORDS SUMMARY | 2024-12-08 15:57 | XMS_ITS | Encounter Summary ---
Author Organization [employer] Address [address] [address] Care Team Providers Care Sales Engineering Manager Name Role Phone Natalie Cavazos MD Primary Care Provider Reason for Visit * Reason Onset Date Comments Med Refill 01/12/2024 Encounter Details Date Type Department Care Team ([facility] Contact Info) Description 01/12/2024 Telephone [facility] MEDICINE 230 [place] [address] Natalie Cavazos MD 505 [place] [address] Med Refill Social History Tobacco Use Types [...] [facility] MED & PEDS 505 [place] [address] Erinn Hernández, MIKAYLA 505 [place] [address] documented as of this encounter Visit Diagnoses Not on filedocumented in this encounter Additional Health Concerns Assessment Noted Time PHQ-9 Depression Total Score: 11 024 2:03 PM EDT documented as of this encounter Care Teams Sales Engineering Manager Relationship Specialty Start Date End Date Natalie Cavazos MD [address] [place] [address] PCP - General Internal Medicine 02/15/18 documented as of this encounter
--- OUTSIDE RECORDS SUMMARY | 2024-12-08 15:57 | XMS_ITS | Encounter Summary ---
Author Organization [employer] Address [address] [address] Care Team Providers Care Probation Supervisor Name Role Phone Natalie Cavazos MD Primary Care Provider [phone]- [phone] Reason for Visit * Reason Comments Med Refill Encounter Details Date Type Department Care Team ([facility] Contact Info) Description 01/15/2023 Refill [facility] CHC MED & PEDS 505 [place], [place] [phone] Natalie Cavazos MD 505 [place] [address] Failed back surgical syndrome Social History Tobacco [...] Description 01/29/2025 2:30 PM EST Telemedicine [facility] MED & PEDS 505 [place] [address] Erinn Hernández, MIKAYLA 505 [place] [address] documented as of this encounter Visit Diagnoses Diagnosis Failed back surgical syndrome documented in this encounter Additional Health Concerns Assessment Noted Time PHQ-9 Depression Total Score: 22 023 3:00 PM EDT documented as of this encounter Care Teams Probation Supervisor Relationship Specialty Start Date End Date Natalie Cavazos MD 505 [place] [address] PCP - General Internal Medicine 02/15/18 documented as of this encounter
--- OUTSIDE RECORDS SUMMARY | 2024-12-08 15:57 | XMS_ITS | Encounter Summary ---
Author Organization [employer] Address 75 [facility] 7 [place] [address] Care Team Providers Care Manager Game Name Role Phone Natalie Cavazos MD Primary Care Provider [phone] Encounter Details Date Type Department Care Team ([facility] Contact Info) Description 01/27/2024 Telephone [facility] MEDICINE 230 [place] [address] Natalie Cavazos MD 505 [place] [address] Social History Tobacco Use Types Packs/Day Years [...] Info) Description 01/29/2025 2:30 PM EST Telemedicine [facility] MED & PEDS 505 [place] [address] Erinn Hernández RN 505 [place] [address] documented as of this encounter Visit Diagnoses Not on filedocumented in this encounter Additional Health Concerns Assessment Noted Time PHQ-9 Depression Total Score: 11 024 2:03 PM EDT documented as of this encounter Care Teams Manager Game Relationship Specialty Start Date End Date Natalie Cavazos MD 505 [place] [address] PCP - General Internal Medicine 02/15/18 documented as of this encounter
--- OUTSIDE RECORDS SUMMARY | 2024-12-08 15:57 | XMS_ITS | Encounter Summary ---
Author Organization [employer] Address [address] [address] Care Team Providers Care Extension Professor Name Role Phone Natalie Cavazos MD Primary Care Provider Reason for Visit * Reason Onset Date Comments Med Refill 09/13/2023 Encounter Details Date Type Department Care Team ([facility] Contact Info) Description 09/13/2023 Telephone [facility] MEDICINE 230 [place] [address] Natalie Cavazos MD 505 [place] [address] Med Refill Social History Tobacco Use Types [...] immediate release tablet To be sent to: [facility] - [place], [place] - 230 [facility] documented in this encounter Plan of Treatment Upcoming Encounters Date Type Department Care Team ([facility] st Contact Info) Description 01/29/2025 2:30 PM EST Telemedicine [facility] CHC MED & PEDS 505 [place] [address] Erinn Hernández, MIKAYLA 505 [place] [address] documented as of this encounter Visit Diagnoses Not on filedocumented in this encounter Additional Health Concerns Assessment Noted Time PHQ-9 Depression Total Score: 11 024 2:03 PM EDT documented as of this encounter Care Teams Extension Professor Relationship Specialty Start Date End Date Natalie Cavazos MD [address] [place] [address] PCP - General Internal Medicine 02/15/18 documented as of this encounter
--- OUTSIDE RECORDS SUMMARY | 2024-12-08 15:57 | XMS_ITS | Encounter Summary ---
Author Organization [employer] Address [address] [address] Care Team Providers Care Hazardous Materials Tanker Driver Name Role Phone Natalie Cavazos MD Primary Care Provider [phone] Reason for Visit * Reason Onset Date Comments Appointment Request 08/30/2024 Encounter Details Date Type Department Care Team ([facility] Contact Info) Description 08/30/2024 Telephone [facility] MEDICINE 230 [place] [address] Natalie Cavazos MD 505 [place] [address] Appointment Request Social History Tobacco Use Types [...] encounter Miscellaneous Notes * Telephone Encounter - Cedadrianna Mike - 08/30/2024 12:00 PM EDT Tc from pt requesting call back regarding tomorrow's DIRECTOR STERILE PROCESSING visit. Pt states she is sick and would like to know if nurse would feel it's necessary to reschedule appt. Please contact pt at [phone]. documented in this encounter Plan of Treatment Upcoming Encounters Date Type Department Care Team ([facility] st Contact Info) Description 01/29/2025 2:30 PM EST Telemedicine [facility] MED & PEDS 505 [place] [address] Erinn Hernández, RN 505 [place] [address] documented as of this encounter Visit Diagnoses Not on filedocumented in this encounter Additional Health Concerns Assessment Noted Time PHQ-9 Depression Total Score: 11 024 2:03 PM EDT documented as of this encounter Care Teams Hazardous Materials Tanker Driver Relationship Specialty Start Date End Date Natalie Cavazos MD [address] [place] [address] PCP - General Internal Medicine 02/15/18 documented as of this encounter
--- OUTSIDE RECORDS SUMMARY | 2024-12-08 15:57 | XMS_ITS | Clinical Summary ---
Author Organization [facility] Address [address] [place] [address] Care Team Providers Care Wireless Sales Expert Name Role Phone Natalie Cavazos MD Primary Care Provider [phone] Social History Tobacco Use Types Packs/Day Years [...] age to complete this topic Care Teams Wireless Sales Expert Relationship Specialty Start Date End Date Natalie Cavazos MD [address] [place] [address] PCP - General Internal Medicine 03/22/20
--- OUTSIDE RECORDS SUMMARY | 2024-12-08 15:57 | XMS_ITS | Encounter Summary ---
Author Organization [employer] Address [address] [place] [address] Care Team Providers Care Advisor Consultant Name Role Phone Natalie Cavazos MD Primary Care Provider [phone] Reason for Referral * Consultation (Routine) - Closed Specialty Diagnoses / Procedures Referred By Contac t Referred To Contact Neurosurgery Diagnoses Failed back surgical syndrome Lumbosacral radiculopathy Natalie Cavazos MD [address] [place] [phone] Phone: tel: fax: Linda Johnson MD [address] [place] [phone] Phone: tel: fax: Referral ID Status Reason Start Date Expiration Date V isits Requested Visits Authorized [id number] Closed Specialty Services Required 11/07/2024 11/07/2025 1 1 Encounter Details Date Type Department Care Team (Late st Contact Info) Description 11/07/2024 Orders Only [facility] [address] [place], [place] [phone] Natalie Cavazos MD [address] [place] [phone] Failed back surgical syndrome (Primary Dx); Lumbosacral radiculopathy; History of hypoglycemia Social History Tobacco Use Types Packs/Day Years [...] Upcoming Encounters Date Type Department Care Team ([facility] st Contact Info) Description 01/29/2025 2:30 PM EST Telemedicine [facility] [address] [place] [address] Erinn Hernández, RN [address] [place] [address] documented as of this encounter Procedures Procedure Name Priority Date/Time Associated Diagnosis Comments AMB REFERRAL TO NEUROSURGERY Routine 12/01/2024 Failed back surgical syndrome Lumbosacral radiculopathy documented in this encounter Results * Referral to Neurosurgery (12/01/2024) us Natalie Cavazos MD OUTPATIENT REFERRAL ORDERAB LES Final Result documented in this encounter Visit Diagnoses Diagnosis Failed back surgical syndrome- Primary Lumbosacral radiculopathy Thoracic or lumbosacral neuritis or radiculitis, unspecified History of hypoglycemia documented in this encounter Additional Health Concerns Assessment Noted Time PHQ-9 Depression Total Score: 4 09/30/19 25 2:27 PM EDT documented as of this encounter Care Teams Advisor Consultant Relationship Specialty Start Date End Date Natalie Cavazos MD [address] [place] [address] PCP - General Internal Medicine 02/15/18 documented as of this encounter
--- OUTSIDE RECORDS SUMMARY | 2024-12-08 15:58 | XMS_ITS | Clinical Summary ---
Author Organization [employer] Address [address] [facility] 7 [place] [address] Care Team Providers Care Director Of Category Management Name Role Phone Natalie Cavazos MD Primary [...] daily. 60 tablet 2 11/18/19 23 Active Easy Touch Lancets 33G/Twist misc TEST [...] if needed. 2 capsule 10/18/19 25 Active nicotine (Nicoderm CQ) 14 MG/24HR patchIndications :Smoking addiction Place 1 patch on the skin 1 (one) time each day at the same time. 30 patch 11/15/19 25 2024 Active glucose blood (FREESTYLE LITE) test stripIndications :History of hypoglycemia TEST BLOOD SUGAR ONCE DAILY 50 strip 5 11/15/19 25 Active pregabalin (Lyrica) 300 MG capsuleIndicatio ns:Fibromyalgia, Chronic pain syndrome TAKE 1 CAPSULE BY MOUTH TWICE DAILY 60 capsule 11/21/19 25 Active oxyCODONE (Roxicodone) 5 MG immediate release tabletIndication s:Failed back surgical syndrome,Lumbosa cral radiculopathy,Ch ronic pain syndrome TAKE 2 TABLETS BY MOUTH EVERY 6 HOURS NEEDED FOR SEVERE PAIN 112 tablet 12/06/19 25 Active glucose blood (FREESTYLE LITE) test strip TEST BLOOD SUGAR ONCE DAILY 50 strip 5 06/15/19 24 2024 Discontinued(R eorder (will not trigger notification to Pharmacy)) pregabalin (Lyrica) 300 MG capsuleIndicatio ns:Fibromyalgia, Chronic pain syndrome TAKE 1 CAPSULE BY MOUTH TWICE DAILY 60 capsule 10/20/19 25 2024 Discontinued(R eorder (will not trigger notification to Pharmacy)) oxyCODONE (Roxicodone) 5 MG immediate release tabletIndication s:Failed back surgical syndrome,Lumbosa cral radiculopathy,Ch ronic pain syndrome TAKE 2 TABLETS BY MOUTH EVERY 4 HOURS NEEDED FOR SEVERE PAIN FOR UP TO 5 DAYS 40 tablet 11/07/19 25 2024 Discontinued(R eorder (will not trigger notification to Pharmacy)) oxyCODONE-acetam inophen (Percocet) 10-325 MG tabletIndication s:Failed back surgical syndrome,Lumbosa cral radiculopathy Take 1 tablet by mouth every 4 (four) hours if needed for severe pain for up to 10 days. 30 tablet 11/08/19 25 2024 predniSONE (Deltasone) 20 MG tabletIndication s:Failed back surgical syndrome,Lumbosa cral radiculopathy Take 1 tablet (20 mg) by mouth Once per day for 5 days. 5 tablet 11/08/19 25 2024 oxyCODONE (Roxicodone) 5 MG immediate release tabletIndication s:Failed back surgical syndrome,Lumbosa cral radiculopathy,Ch ronic pain syndrome Take 1 tablet (5 mg) by mouth every 6 (six) hours if needed for severe pain. 112 tablet 11/11/19 25 2024 Discontinued(R eorder (will not trigger notification to Pharmacy)) oxyCODONE (Roxicodone) 5 MG immediate release tabletIndication s:Failed back surgical syndrome,Lumbosa cral radiculopathy,Ch ronic pain syndrome Take 2 tablets (10 mg) by mouth every 6 (six) hours if needed for severe pain. Do not start before November 23, 2024. 112 tablet 11/24/19 25 2024 Discontinued Active Problems Problem Noted Date Diagnosed Date Long-term current use of opiate analgesic 2024 Fibromyalgia 05/25/2024 Current severe episode of ma amilcar depressive disorder without psychotic features, unspecified whether recurrent (CMS/HCC) 08/25/2023 Mixed anxiety and depressive disorder 08/17/2022 [...] in services PLAN: 1. Follow up with [facility]: Not recommended for follow-up 2. Patient goal is to control her sxs and feel better 3. Behavioral Recommendations a. Ind. therapy b. Use of Coping skills c. Contact this IB as needed for support. 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 Date Type Department Care Team Description 12/06/2024 [facility] Only [facility] Information Management [address] [place] [phone] ProviderNori MD 12/05/2024 Refill [facility] [address] [place] [address] Natalie Cavazos MD Failed back surgical syndrome; Lumbosacral radiculopathy; Chronic pain syndrome 11/21/2024 Refill [facility] [address] [place] [address] Erinn Hernández RN Failed back surgical syndrome; Lumbosacral radiculopathy; Chronic pain syndrome 11/21/2024 Telephone [facility] [address] [place] [address] Natalie Cavazos MD Med Refill 11/20/2024 Refill [facility] [address] [place] [phone] Natalie Cavazos MD Fibromyalgia; Chronic pain syndrome 11/14/2024 3:15 PM EDT Office Visit [facility] [address] [place] [address] Natalie Cavazos MD Lumbosacral radiculopathy (Primary Dx); Smoking addiction; Mixed anxiety and depressive disorder; Grief; Encounter for immunization 11/14/2024 3:00 PM EDT Clinical Support [facility] [address] [place] [address] Erinn Hernández RN Chronic pain syndrome (Primary Dx) 11/14/2024 Travel 11/09/[address] [address] Natalie Cavazos MD Call back 11/08/2024 Telephone [facility] [address] [place] [address] Natalie Cavazos MD No Show 11/07/2024 Orders Only [facility] [address] [place] [address] Natalie Cavazos MD Failed back surgical syndrome (Primary Dx); Lumbosacral radiculopathy; History of hypoglycemia 11/06/2024 Telephone [facility] [address] [place], [place] [phone] Natalie Cavazos MD Appointment Request 11/06/2024 Refill [facility] [address] [place], [place] [phone] Natalie Cavazos MD Failed back surgical syndrome; Lumbosacral radiculopathy; Chronic pain syndrome 11/03/2024 Telephone [facility] [address] [place], [place] [phone] Natalie Cavazos MD Nurse Triage 10/26/2024 Telephone [facility] [address] [place], [place] [phone] Erinn Hernández RN 10/26/2024 Telephone [facility] [address] [place] [address] Natalie Cavazos MD Med Refill 10/24/2024 10:15 AM EDT Office Visit [facility] [address] [place] [address] Natalie Cavazos MD Failed back surgical syndrome (Primary Dx); Lumbosacral radiculopathy; Chronic pain syndrome 10/24/2024 Travel 10/23/2024 Telephone [facility] [address] [place] [address] Natalie Cavazos MD Nurse Triage 10/19/2024 Refill [facility] [address] [place] [phone] Natalie Cavazos MD Fibromyalgia; Chronic pain syndrome 10/19/2024 Refill [facility] [address] [place] [address] Natalie Cavazos MD Chronic pain syndrome 10/17/2024 Orders Only [facility] [address] [place] [address] Natalie Cavazos MD Mixed anxiety and depressive disorder (Primary Dx) 10/17/[address] [address] Natalie Cavazos MD Medication Question 10/12/2024 2:00 PM EDT Telemedicine [facility] [address] [place] [address] Erinn Hernández, RN Long-term current use of opiate analgesic 10/12/2024 Refill [facility] [address] [place] [address] Erinn Hernández RN 10/12/2024 Travel 10/11/2024 Travel 10/11/2024 Telephone [facility] [address] [place] [address] Natalie Cavazos MD Appointment Request 10/05/2024 Refill [facility] [address] [place] [address] Erinn Hernández RN Chronic pain syndrome 10/05/[address] [address] Natalie Cavazos MD Med Refill 09/29/2024 2:40 PM EDT Office Visit [facility] [address] [place] [address] Natalie Caavzos MD Lumbosacral radiculopathy (Primary Dx) 09/29/2024 Travel 09/28/[address] [address] Natalie Cavazos MD Nurse Triage 09/25/2024 Orders Only [facility] [address] [place] [address] Natalie Cavazos MD Chronic pain syndrome 09/25/2024 Refill [facility] [address] [place] [address] Erinn Hernández RN Chronic pain syndrome 09/22/2024 Telephone [facility] [address] [place] [address] Natalie Cavazos MD Med Refill 09/22/2024 Refill [facility] [address] [place], [place] [phone] Natalie Cavazos MD Fibromyalgia; Chronic pain syndrome 09/21/2024 Refill [facility] [address] [place] [address] Natalie Cavazos MD 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 deepika fied surface antigen) 10/31/2012 Influenza, seasonal, injecta ble, preservative free 11/14/2024 Carmelina SARS-CoV-2 Vaccination 05/27/2020 Pfizer Covid-19 Vaccine 12+ 05/09/2021 Pfizer Covid-19 Vaccine 12+ chi-sucrose (Salazar Cap) 05/09/2021 Pneumococcal Conjugate PCV 20 11/14/2024 Pneumococcal Polysaccharide PPSV23 07/12/2016 Td (adult), 5 [...] Sign Reading Time Taken Comments Blood Pressure 125/65 11/14/2024 3:22 PM EDT Pulse 63 11/14/2024 3:22 PM EDT Temperature 36.7 C (98.1 F) 09/29/2024 2:27 PM EDT Respiratory Rate 19 11/14/2024 3:22 PM EDT Oxygen Saturation 96% 11/14/2024 3:22 PM EDT Inhaled Oxygen Concentration - - Weight 66.7 kg (147 lb) 11/14/2024 3:22 PM EDT Height 160 cm (5' 3 ) 11/14/2024 3:22 PM EDT Body Mass Index 26.04 11/14/2024 3:22 PM EDT Plan of Treatment Upcoming Encounters Date Type Department Care Team ([facility] st Contact Info) Description 01/29/2025 2:30 PM EST Telemedicine [facility] [address] [place] [address] Erinn Hernández, MIKAYLA [address] [place] [address] Health Maintenance Due Date Last Done Comments CT Colonography 1968 FIT DNA/Cologuard 1968 FIT 1968 FOBT 1968 HIV Screening 1968 Lipid Panel 1968 Sigmoidoscopy 1968 Hepatitis C Screening 1986 Pap Smear 1989 Cervical Cancer Screening 1998 HPV/Cotest 1998 COVID-19 Vaccine ( season) 2024 01/21/2023, 05/09/2021, 05/09/2021, Additional history exists SDOH Screening 05/19/2025 05/19/2024 Alcohol/Substance Use Screening 09/29/2025 09/29/2024 Depression Screening 09/29/2025 09/29/2024, 09/30/19 Disability Screening 09/29/2025 09/29/2024 Tobacco Screening 11/14/2025 11/14/2024 DTaP/Tdap/Td Vaccines (2 - Td or Tdap) 12/10/2025 12/11/2015, 08/09/2011 Mammogram 08/29/2026 08/29/2024, 2 08/2022, 07/01/2016 Colonoscopy 03/08/2028 03/08/2018 Colorectal Cancer Screening 03/08/2028 RSV Patients and Patients Aged 60 years or older (1 - 1-dose 75+ series) 2043 Zoster Vaccines Completed 09/18/2021, 07/10/2021 Hepatitis B Vaccines Completed 11/12/2022, 09/10/2022, 09/10/2022 Influenza Vaccine Completed 11/14/2024, , 11/11/2021, Additional [...] VIEWS BILATERAL Routine 12/06/2024 4:06 PM EDT AMB REFERRAL TO NEUROSURGERY Routine 12/01/2024 Failed back surgical syndrome Lumbosacral radiculopathy POCT MARIO-14 URINE DRUG SCREEN Routine 11/14/2024 3:19 PM EDT Chronic pain syndrome MR LUMBAR SPINE WO CONTRAST Routine 10/24/2024 9:43 AM EDT Lumbosacral radiculopathy HM MAMMOGRAPHY Routine 08/29/2024 12:54 PM EDT HM COLONOSCOPY Routine 03/08/2018 from Last 3 Months or Most Recently Relevant to Health Maintenance Results * XR Knee 3 Views Bilateral (12/06/2024 4:06 PM EDT) Anatomical Region Laterality Modality Lower Extremities, Knee Bilateral Radiogra phic Imaging us Historical Provider IMG XR PROCEDURES Final R esult * Referral to Neurosurgery (12/01/2024) Natalie Cavazos MD OUTPATIENT REFERRAL ORDERAB LES Final Result * (ABNORMAL) POCT MARIO-14 Urine Drug Screen (11/14/2024 3:19 PM EDT) THC Positive(A) Negative Cocaine Screen, Urine Negative Negative Opiate Screen, Urine Positive(A) Negative Methamphetamine Screen Urine Negative Negative Amphetamine Screen, Urine Negative Negative Benzodiazepines Screen, Urine Negative Negative Barbiturate Screen, Urine Negative Negative Methadone Screen, Urine Negative Negative Buprenophine Screen, Urine Negative Negative TCA, Urine Negative Negative MDMA Urine Negative Negative ng/mL Oxycodone Screen, Urine Positive(A) Negative Phencyclidine (PCP), Urine Negative Negative Propoxyphene, Urine Negative Negative Fentanyl, Urine Negative Negative Urine Urine specimen obtained by clean catch procedure / Unknown 11/14/2024 3:19 PM EDT Narrative Erinn Hernández RN - 11/14/2024 3:19 PM EDT . Internal Pass Control Lot# [id number] Exp: 12-15-25 us Natalie Cavazos MD POINT OF CARE TEST ENTER/ED IT ORDERABLES Final Result * MR Lumbar Spine w/o Contrast (10/24/2024 9:43 AM EDT) Anatomical Region Laterality Modality Spine, L-spine Magnetic Resonan ce 10/24/2024 9:43 AM EDT Narrative 10/24/2024 9:45 AM EDT [address] [address] Magnetic Resonance Report Signed Patient: Madison Abreu MR #: [id number] : 1970 Acct:[id number] Age/Sex: 54 / F ADM Date: 10/22/24 Loc: HO.MRI Attending Dr: Natalie Cavazos MD Ordering Physician: Natalie Cavazos MD Date of Service: 10/22/24 Procedure(s): MR lumbar spine wo con Accession Number(s): [id number] cc: Natalie Cavazos MD Reason for Exam: Radiculopathy CLINICAL HISTORY: Radiculopathy MR lumbar spine without gadolinium Comparison: CR - XR LUMBAR SPINE 2-3V - 09/25/24 19:31 EDT Findings: Minimal convex right mid lumbar curvature as seen on the patient's prior radiographs. Dual anterior interbody fusion devices are again seen at the L5-S1 disc level. These generate mild metal artifact as expected. Generalized straightening of the normal lumbar lordosis on the sagittal images. No acute fracture. Multilevel mixed Modic type 1 and Modic type 2 endplate changes are seen throughout the lumbar spine, most pronounced at L1-2 and L2-3. The conus terminates at L1. No abnormal signal intensity identified within the conus medullaris. Mild prominence of the right renal pelvis. Segmental analysis: L1-2: Posterior osteophytic ridging with broad-based disc bulge and mild facet joint degenerative change. Central canal and neural foramina are patent. L2-3: Disc height loss with disc desiccation. Broad-based disc osteophyte complex is asymmetric to the left extending into the left neural foramen. Moderate facet joint degenerative change. This combination results in borderline narrowing of the left lateral recess with knfs-lh-igiavlgq narrowing of the left neural foramina. L3-4: Disc height loss and disc desiccation and posterior osteophytic ridging. Bbkm-cf-smqrqvno facet joint degenerative change. Mild narrowing of the right lateral recess. Mild bilateral neural foraminal narrowing. L4-5: Disc height loss with disc desiccation and broad-based disc bulge, asymmetric to the left. Kixs-kh-brnpohqg facet joint degenerative change. Central canal is patent. Mild right-sided and gplq-ej-kwmeswtk left-sided neural foraminal narrowing. L5-S1:Posterior osteophytic ridging. Moderate facet joint degenerative change. Central canal is patent. Neural foramina are patent. IMPRESSION: Multilevel degenerative change as discussed above. No acute finding. This document has been electronically signed by: Alex Wade MD on 10/24/2024 09:43:56 Dictated By: Alex Wade MD Signed By: <Electronically signed by Alex Wade MD in OV> 10/24/24943 DD/ 2 TD/TT: 10/24/24942 Chiropractic Teacher: Procedure Note Donotuseinterpreter, Image - 10/24/[address] [address] Magnetic Resonance Report Signed Patient: Madison AbreuMR #: [id number] : 1970Acct:[id number] Age/Sex: 54 / FADM Date: 10/22/24 Loc: HO.MRI Attending Dr: Natalie Cavazos MD Ordering Physician: Natalie Cavazos MD Date of Service: 10/22/24 Procedure(s): MR lumbar spine wo con Accession Number(s): [id number] cc: Natalie Cavazos MD Reason for Exam: Radiculopathy CLINICAL HISTORY: Radiculopathy MR lumbar spine without gadolinium Comparison: CR - XR LUMBAR SPINE 2-3V - 09/25/24 19:31 EDT Findings: Minimal convex right mid lumbar curvature as seen on the patient's prior radiographs. Dual anterior interbody fusion devices are again seen at the L5-S1 disc level. These generate mild metal artifact as expected. Generalized straightening of the normal lumbar lordosis on the sagittal images. No acute fracture. Multilevel mixed Modic type 1 and Modic type 2 endplate changes are seen throughout the lumbar spine, most pronounced at L1-2 and L2-3. The conus terminates at L1. No abnormal signal intensity identified within the conus medullaris. Mild prominence of the right renal pelvis. Segmental analysis: L1-2: Posterior osteophytic ridging with broad-based disc bulge and mild facet joint degenerative change. Central canal and neural foramina are patent. L2-3: Disc height loss with disc desiccation. Broad-based disc osteophyte complex is asymmetric to the left extending into the left neural foramen. Moderate facet joint degenerative change. This combination results in borderline narrowing of the left lateral recess with lpcb-sr-feeiulqt narrowing of the left neural foramina. L3-4: Disc height loss and disc desiccation and posterior osteophytic ridging. Arrf-fs-zfqkpriu facet joint degenerative change. Mild narrowing of the right lateral recess. Mild bilateral neural foraminal narrowing. L4-5: Disc height loss with disc desiccation and broad-based disc bulge, asymmetric to the left. Mbnj-we-iykfswua facet joint degenerative change. Central canal is patent. Mild right-sided and dbox-ol-ukruakmt left-sided neural foraminal narrowing. L5-S1:Posterior osteophytic ridging. Moderate facet joint degenerative change. Central canal is patent. Neural foramina are patent. IMPRESSION: Multilevel degenerative change as discussed above. No acute finding. This document has been electronically signed by: Alex Wade MD on 10/24/2024 09:43:56 Dictated By: Alex Wade MD Signed By: <Electronically signed by Alex Wade MD in OV> 10/24/24943 DD/ 2 TD/TT: 10/24/24942 Chiropractic Teacher: Natalie Cavazos MD IMG MRI PROCEDURES Edited R esult - Final * Mammography (08/29/2024 12:54 PM EDT) Anatomical Region Laterality Modality Other Historical Provider HEALTH MAINTENANCE Final Result * Colonoscopy (03/08/2018) Colonoscopy performed Historical Provider HEALTH MAINTENANCE Final Result from Last 3 Months or Most Recently Relevant to Health Maintenance [facility] Care Teams Director Of Category Management Relationship Specialty Start Date End Date Natalie Cavazos MD [address] [place] [phone] PCP - General Internal Medicine 02/15/18
--- OUTSIDE RECORDS SUMMARY | 2024-12-08 15:58 | XMS_ITS | Encounter Summary ---
Author Organization [employer] Address [address] [address] Care Team Providers Care Cad Design Engineer Name Role Phone Natalie Cavaozs MD Primary Care Provider Reason for Visit * Reason Onset Date Comments Med Refill 10/05/2024 Encounter Details Date Type Department Care Team ([facility] Contact Info) Description 10/05/2024 Telephone [facility] [address] [place] [address] Natalie Cavazos MD [address] [place] [address] Med Refill Social History Tobacco Use Types [...] housing situation today? I have sheri vierya 05/19/[address] you li [...] immediate release tablet To be sent to: [facility] - [place], [place] - [address] [facility] documented in this encounter Plan of Treatment Upcoming Encounters Date Type Department Care Team ([facility] st Contact Info) Description 01/29/2025 2:30 PM EST Telemedicine [facility] [address] [place] [address] Erinn Hernández, RN [address] [place] [address] documented as of this encounter Visit Diagnoses Not on filedocumented in this encounter Additional Health Concerns Assessment Noted Time PHQ-9 Depression Total Score: 4 09/30/19 25 2:27 PM EDT documented as of this encounter Care Teams Cad Design Engineer Relationship Specialty Start Date End Date Natalie Cavazos MD [address] [place] [phone] PCP - General Internal Medicine 02/15/18 documented as of this encounter
== END 2024-12-08 15:06 | disposition home or self-care (01) ==
LOC: HO.HNS 13:55
PROVIDERS: PCP Internal Medicine; Referring Provider Neurological Surgery; Visit Provider Physician Assistant
DX: M53.3 Sacrococcygeal disorders, not elsewhere classified (principal); G89.29 Other chronic pain
CPT/HCPCS: 99204

== ENCOUNTER → 2024-12-08 13:55 | Outpatient (BNVA) | payer MEDICAID, SELFPAY | PROVIDERS: PCP Internal Medicine; Referring Provider Neurological Surgery; Visit Provider Physician Assistant | DX: M53.3 Sacrococcygeal disorders, not elsewhere classified (principal); G89.29 Other chronic pain | CPT/HCPCS: 99212 ==